=== PATIENT | male | born 1945 | race Caucasian/White ===

== ENCOUNTER 2016-10-02 12:13 | Inpatient (IN) | payer OTHER, MEDICARE ==
[2016-10-02 12:27] VITALS: BP 105/62
[2016-10-02 13:21] LABS: HEMATOCRIT 30.9 % (39.0-49.0); HEMOGLOBIN 10.5 gm/dL (12.6-17.4); MEAN CELL VOLUME 93.9 fl (80-99); MEAN CORPUSCULAR HEMOGLOBIN 31.9 pg (27.0-31.0); MEAN CORPUSCULAR HGB CONC 33.9 pg (28.0-36.0); MEAN PLATELET VOLUME 7.4 fl; PLATELET COUNT 253 Th/cmm (150-400); RED BLOOD COUNT 3.29 Mil/cmm (3.80-5.80); RED CELL DISTRIBUTION WIDTH 17.3 % (11.5-20.0)
--- NOTE | 2016-10-02 13:21 | Diagnostic Imaging Report ---
CHEST X-RAY: AP view INDICATION: COPD COMPARISON: None FINDINGS: Chronic lung changes are seen with mild prominence of the right suprahilar region and mild volume loss of the right lower lobe with small right effusion. Heart size is normal. Right apical pleural capping is noted. Atherosclerosis is noted. Degenerative changes of the spine are noted. Displaced right proximal humeral shaft is also noted. IMPRESSION: Chronic lung changes with mild volume loss of the right lung and mild prominence of right suprahilar region. Underlying mass lesion cannot be excluded. Recommend short-term follow-up with CT of the chest with IV contrast Small right effusion and right apical pleural capping. Pneumonia of the right apex cannot be excluded. Displaced right proximal humeral shaft fracture. Please correlate clinically. Consider additional dedicated views of the right humerus. Atherosclerotic vascular disease. Dr. Wagner was informed of the findings and recommendations on 09/12/2016 at 1:17 PM.
[2016-10-02 13:22] LABS: pH 7.47 (7.35-7.45)
[2016-10-02 13:24] LABS: INR 1.11 (0.5-1.4); PROTHROMBIN TIME (TEST) 11.6 SECONDS (9.5-11.5); WHITE BLOOD COUNT 19.3 Th/cmm (4.8-10.8)
[2016-10-02 13:24] LABS: BE(B) 6.8 mEq/L (-3.0-3.0); HCO3 31.3 mEq/L (20.0-26.0)
[2016-10-02 13:25] LABS: ABG SOURCE Arterial; ALLEN TEST POSITIVE; FIO2 28
[2016-10-02] MEDS ORDERED: Ipratropium Neb 0.5 mg/2.5 mL UD HHN ONE (13:26)
[2016-10-02] MEDS ORDERED: Albuterol Nebulizer 2.5mg/3mL HHN ONE (13:26)
[2016-10-02 13:28] LABS: CRITICAL VALUES REPORTED BY CS
--- NOTE | 2016-10-02 13:29 | ED Physician Chart ---
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 HE HAS CHEST CONGESTION, SOB, COUGH AND GREEN SPUTUM. HE ALSO HAS HAD FEVER FOR THE LAST FEW DAYS. HE HAS A LONG SMOKING HISTORY BUT STOPPED FOUR YEARS AGO. HE DENIES HEART DISEASE. Allergies:: Allergies Allergy/AdvReac Type Severity Reaction Status Date / Time cimetidine [From Tagamet] AdvReac Verified 10/02/16 12:22 Sulfa (Sulfonamide AdvReac Verified 10/02/16 12:22 Antibiotics) Vitals:: Vital Signs - 8 hr 10/02/16 10/02/16 12:27 12:28 Temp 98.7 F HR 90 RR 22 BP 105/62 105/62 O2 Sat % 92 Historian:: Patient, Medical Records Review:: Nurse's Note Reviewed Review of Systems - Review of Systems General/Constitutional: Fever, No chills, No weight loss, No weakness, No diaphoresis, No edema, No loss of appetite Skin: No skin lesions, No rash, No bruising Head: No headache, No light-headedness Eyes: No loss of vision, No pain, No diplopia ENT: No earache, No nasal drainage, No sore throat, No tinnitus Neck: No neck pain, No swelling, No thyromegaly, No stiffness, No mass noted Cardio Vascular: No chest pain, No palpitations, No PND, No orthopnea, No edema Pulmonary: SOB, Cough, Sputum, No wheezing GI: No nausea, No vomiting, No diarrhea, No pain, No melena, No hematochezia, No constipation, No hematemesis G/U: No dysuria, No frequency, No hematuria Musculoskeletal: No bone or joint pain, No back pain, No muscle pain Endocrine: No polyuria, No polydipsia Psychiatric: No prior psych history, No depression, No anxiety, No suicidal ideation Hematopoietic: No bruising, No lymphadenopathy Allergic/Immuno: No urticaria, No angioedema Neurological: No syncope, No focal symptoms, No weakness, No paresthesia, No headache, No seizure, No dizziness, No confusion, No vertigo Past Medical History - Past Medical History Obtainable: Yes Family History: None Social History: Non Smoker, No Alcohol, No Drug Use Surgical History: None Psychiatricy History: None Medication: Reviewed Family Medical History - Family Member Mother History Unknown: Yes Physical Exam - Physical Examination General/Constitutional: Awake, Well-developed, well-nourished, Alert, No distress, GCS 15, Non-toxic appearing, Ambulatory Head: Atraumatic Eyes: Lids, conjuctiva normal, PERRL, EOMI Skin: Nl inspection, No rash, No skin lesions, No ecchymosis, Well hydrated, No lymphadenopathy ENMT: External ears, nose nl, Nasal exam nl, Lips, teeth, gums nl Neck: Nontender, Full ROM w/o pain, No JVD, No nuchal rigidity, No bruit, No mass, No stridor Other Respiratory comments:: THERE IS BILATERAL DECREASE EXCURSION OF THE DIAPHRAMS AND RHONCHI ALSO HEARD. THE PATIENT COUGHED UP GREEN SPUTUM. Cardio Vascular: RRR, No murmur, gallop, rubs, NL S1 S2 GI: No tenderness/rebounding/guarding, No organomegaly, No hernia, Normal BS's, Nondistended, No mass/bruits, No McBurney tenderness : No CVA tenderness Extremities: No tenderness or effusion, Full ROM, No edema Other Extremities comments:: ALL FOUR EXTREMITIES HAVE SEVERE MUSCLE WASTING . Neuro/Psych: Alert/oriented, DTR's symmetric, Normal sensory exam, Normal motor strength, Judgement/insight normal, Mood normal, Normal gait, No focal deficits Misc: normal gait, Normal back, No paraspinal tenderness Labs/Radiology/EKG Results - Lab Results Results: Laboratory Tests 10/02/16 12:30 WBC 19.3 H RBC 3.29 L Hgb 10.5 L Hct 30.9 L MCV 93.9 MCH 31.9 H MCHC Differential 33.9 RDW 17.3 Plt Count 253 MPV 7.4 - Radiology Results Results: CHEST X-RAY = PLEURAL EFFUSION NOTED - EKG Interpretations EKG Time:: 13:04 Rhythm: NSR [place]: RIGHT Rate: 81 Assessment - Assessment General Assessment: PNEUMONIA ED Septic Shock - . Is Septic Shock (SBP<90, OR Lactate>4 mmol\L) present?: No - <6hrs of presentation: Vital Signs: Vital Signs - 8 hr 10/02/16 10/02/16 12:27 12:28 Temp 98.7 F HR 90 RR 22 BP 105/62 105/62 O2 Sat % 92 Reassessment (Disposition) - Reassessment Reassessment Condition:: Improved - Diagnosis Diagnosis:: BILATERAL PNEUMONIA - Aftercare/Follow up Instructions Aftercare/Follow-Up Instructions:: Counseled pt & family regarding lab results/ diagnosis & need follow up - Patient Disposition Discharge/Transfer:: Acute Care w/in this hosp Admitting Medical Physician:: Rommel Benson Condition at Disposition:: Improved ED Discharge Plan - Patient Disposition Admit/Discharge/Transfer: Acute Care w/in this hosp
[2016-10-02 13:32] LABS: ALB/GLOB RATIO 0.9 (1.0-1.8); ALKALINE PHOSPHATASE 45 U/L (34-104); ANION GAP 7.5 (7.0-16.0); BILIRUBIN,TOTAL 1.5 mg/dL (0.3-1.0); BUN - UREA NITROGEN 28 mg/dL (7-25); BUN/CREATININE RATIO 23.3; CALCIUM SERUM 8.6 mg/dL (8.6-10.3); CARBON DIOXIDE 28.5 mEq/L (21.0-31.0); CHLORIDE 101 mEq/L (98-107); CREATININE - SERUM 1.2 mg/dL (0.7-1.3); GLUCOSE 104 mg/dL (70-105); SGOT 11 U/L (13-39); SGPT/ALT 7 U/L (7-52); SODIUM SERUM 133 mEq/L (136-145)
[2016-10-02] MEDS ORDERED: Sodium Chloride 0.9% 1,000 ML IV ONE (13:35)
[2016-10-02 13:56] LABS: BAND NEUTROPHILE 1 % (0-10); EOSINOPHIL 1 % (0-5); NEUTROPHILS 87 % (40-80); PLATELET ESTIMATE ADEQUATE (NORMAL); PLATELET MORPHOLOGY NORMAL (NORMAL); TOTAL CELLS COUNTED 100
--- NOTE | 2016-10-02 14:58 | Diagnostic Imaging Report ---
CT Chest without IV contrast HISTORY: Mass COMPARISON: Chest x-ray earlier the same day. Technique: Axial images were obtained from the base of the neck to the upper abdomen without IV contrast. Reconstructions were made. Total DLP to 52, CTD I 7.3 Findings: Evaluation of mediastinum is limited due to lack of IV contrast. A few nonenlarged mediastinal lymph nodes are noted. Moderate atherosclerotic vascular disease is noted. No evidence of an aortic aneurysm. Heart size is normal. Trace pericardial fluid is noted. There are extensive emphysematous changes of the lungs with bullous changes. There is atypical 3.8 x 2.7 mass with area of cavitation and internal components along the right apex. Surrounding linear densities and areas of scarring are noted. Mild volume loss of the right lung is noted with right apical pleural cavity. Extensive right lower lobe consolidative changes are seen with air bronchograms. Additional left basal passive atelectasis and mild consolidative changes are noted. Trace bilateral effusions are noted. Additional atelectatic changes of the lungs are also seen with few scattered nodular opacities throughout the lungs greatest within the largest along the right lower lobe measuring 9 mm. The upper abdomen demonstrates a 1.5 cm right renal cyst. Extensive left renal atrophy is noted. A subcentimeter left renal low-density lesion is also noted to small to characterize but suggestive of a cyst. Advanced degenerative changes of the spine are noted. An age-indeterminate the displaced right proximal humeral shaft fracture is noted. IMPRESSION: Extensive emphysematous lung changes with area of cavitation/mass lesion of the right apex measuring 3.8 x 2.7 cm. This may represent a necrotic mass or possible necrotic tissue within a large right apex bulla. Findings may have been due to previous infectious process. Neoplastic process is considered less likely. Tuberculosis may be considered in the appropriate clinical setting. Additional extensive right lower lobe infiltrates/consolidative changes and additional mild left basal consolidative changes and passive atelectasis. Trace bilateral pleural effusions Areas of scarring seen throughout the lungs greatest in the right lung with areas of volume loss and right apical pleural capping.. Scattered nodules throughout the lungs the largest within the superior aspect of the right lower lobe measuring 9 mm. Findings may be due to infectious inflammatory or less likely neoplastic process. Short-term follow-up surveillance in 3-4 months is recommended Moderate atherosclerotic vascular disease. Left renal atrophy. Please refer to above for details.
--- NOTE | 2016-10-02 15:53 | Admit Criteria Form ---
Admit Criteria Forms - Admit Criteria Diagnosis: PNEUMONIA, COMMUNITY ACQUIRED Clinical Indications for Admission to Inpatient Care ( Place 'X' for any and all applicable criteria): Admission is indicated for ANY ONE of the following (1)(2)(3): [ ]I. Hypoxemia indicated by ANY ONE of the following: [ ]a) Oxygen saturation less than 90% while breathing room air [ ]b) PO2 less than 60 mm Hg (8.0 kPa) while breathing room air [ ]c) Chronic lung disease with significant deterioration from baseline oxygenation [ ]II. Appropriate diagnostic testing and treatment unavailable in outpatient or recovery facility (eg,testing or infection control measures unavailable(10) [X]III. Moderate-risk or high-risk category patients (Pneumonia Severity Index (PSI) class IV or V, or CURB-65 score of 3 or greater). [ ]IV. Outpatient treatment failure as indicated by ANY ONE of the following(9) : [ ]a) Failure to respond to antibiotic (eg, resistant organism) [ ]b) Clinically significant adverse effects from medication (eg, vomiting) [ ]c) Complications of pneumonia (eg, empyema, bacteremia) [ ]d) Significant worsening of comorbid cond necessitating inpatient care (eg, chronic heart failure) [ ]V. Intermediate-risk category patients (eg, PSI class III or CURB-65 score 2) who do not improve with initial therapy and observation. [ ]. Immunocompromised patients (eg, AIDS, chronic steroid use) at moderate or high risk based on clinical evaluation. [ ]VII. Complicated pleural effusions (eg, exudative, loculated) [ ]VIII.Hemodynamic instability [ ] IX. Altered mental status that is severe or persistent. [ ]X. Dehydration that is severe or persistent. [ ]XI. Bacteremia [ ]XII. Respiratory finding (eg. tachypnea) that do not respond to outpatient or observation care treatment Extended stay beyond goal length of stay may be needed for (20) [ ]a) Unclear diagnosis [ ]b) Pleural disease [ ]c) Severe pneumonia or treatment failure (25 [ ]d) Respiratory failure (anticipate invasive or noninvasive ventilatory support) [ ]e) Abnormal serum electrolytes (serum Na concentration less than 135 mEq/L (mmol/L) (32)(33) [ ]f) Clinically significant comorbid illness (eg, heart failure, atrial fibrillation with rapid heart rate, alcohol withdrawal, renal insufficiency)(34)(35) [ ]g) Comorbid acute exacerbation of COPD(36) [ ]h) Concomitant diagnosis of malignancy that may be associated with malnutrition, immunologic impairment, or bronchial obstruction. [ ]i) Concomitant altered mental status [ ]j) Culture-identified Gram-negative or antibiotic-resistant organism (eg, Pseudomonas, methicillin-resistant Staphylococcus aureus)(30) [ ]k) Healthcare-associated pneumonia The original [facility] content created by [employer] has been revised. The portions of the content which have been revised are identified through the use of italic text or in bold, and [facility] has neither reviewed nor approved the modified material. All other unmodified content is copyright [facility] [employer]. Please see references footnoted in the original [facility] [employer] edition 2016 Admit Criteria Met?: Yes
[2016-10-02] MEDS ORDERED: VTE Chemical Prophylaxis Screen/Admission MC PRN (16:52)
[2016-10-02] MEDS: Albuterol Nebulizer 2.5mg/3mL HHN ONE (17:17)
[2016-10-02] MEDS: Ipratropium Neb 0.5 mg/2.5 mL UD HHN ONE (17:18)
[2016-10-02] MEDS: Hydrocodone/APAP 10 mg/325 mg Tab PO PRN ×2 (17:52→23:48)
[2016-10-02] MEDS: Albuterol Sulfate ER 4 mg Tab PO SCH (18:00)
[2016-10-02] MEDS ORDERED: Budesonide 0.5 Mg/2 mL Ud HHN SCH (19:00)
[2016-10-03] MEDS: Hydrocodone/APAP 10 mg/325 mg Tab PO PRN ×4 (04:08→17:50)
[2016-10-03 04:37] LABS: URINE BACTERIA 1+ /hpf (NONE SEEN); URINE BILIRUBIN NEGATIVE (NEGATIVE); URINE BLOOD NEGATIVE (NEGATIVE); URINE COLOR AMBER; URINE EPITHELIAL CELLS OCCASIONAL /lpf (FEW); URINE GLUCOSE (UA) NEGATIVE (NEGATIVE); URINE KETONE NEGATIVE (NEGATIVE); URINE PH 5.5; URINE PROTEIN 100 mg/dL (NEGATIVE); URINE RBC 0-1 /hpf (0-5); URINE UROBILINOGEN 0.2 E.U./dL (0.2 - 1.0); URINE WBC 0-2 /hpf (0-5)
[2016-10-03 04:38] LABS: URINE AMORPHOUS SEDIMENT MODERATE URATES (NONE SEEN)
[2016-10-03] MEDS: Pantoprazole 40 mg EC Tab PO SCH (06:42)
[2016-10-03 06:57] LABS: % BASOPHILS 0.4 % (0.0-2.0); % EOSINOPHILS 0.2 % (0.0-5.0); % LYMPHOCYTES 11.6 % (20.0-50.0); % MONOCYTES 2.6 % (2.0-10.0); % NEUTROPHILS 85.2 % (40.0-80.0); HEMATOCRIT 30.7 % (39.0-49.0); HEMOGLOBIN 10.4 gm/dL (12.6-17.4); MEAN CELL VOLUME 94.8 fl (80-99); MEAN CORPUSCULAR HGB CONC 33.7 pg (28.0-36.0); MEAN PLATELET VOLUME 7.1 fl; NEUTROPHILE ABSOLUTE 7.6 Th/cmm (1.8-8.0); PLATELET COUNT 236 Th/cmm (150-400); RED BLOOD COUNT 3.24 Mil/cmm (3.80-5.80); RED CELL DISTRIBUTION WIDTH 17.4 % (11.5-20.0)
[2016-10-03] MEDS: Albuterol Nebulizer 2.5mg/3mL HHN PRN ×2 (06:59→14:35)
[2016-10-03] MEDS ORDERED: Levofloxacin 500mg/100mL 500 MG/100 ML BAG IV SCH (07:00)
[2016-10-03] MEDS: Ipratropium Neb 0.5 mg/2.5 mL UD HHN PRN ×2 (07:00→14:35)
[2016-10-03 07:14] LABS: WHITE BLOOD COUNT 8.8 Th/cmm (4.8-10.8)
[2016-10-03 07:20] LABS: ALB/GLOB RATIO 0.8 (1.0-1.8); ALKALINE PHOSPHATASE 43 U/L (34-104); ANION GAP 7.6 (7.0-16.0); BILIRUBIN,TOTAL 0.5 mg/dL (0.3-1.0); BUN - UREA NITROGEN 36 mg/dL (7-25); BUN/CREATININE RATIO 25.7; CARBON DIOXIDE 29.4 mEq/L (21.0-31.0); CHLORIDE 107 mEq/L (98-107); CHOLESTEROL 105 mg/dL (<200); CREATININE - SERUM 1.4 mg/dL (0.7-1.3); GLUCOSE 160 mg/dL (70-105); SGOT 8 U/L (13-39); SGPT/ALT 8 U/L (7-52); SODIUM SERUM 140 mEq/L (136-145); TRIGLYCERIDES 107 mg/dL (<150)
[2016-10-03] MEDS: Albuterol Sulfate ER 4 mg Tab PO SCH (08:55)
[2016-10-03] MEDS: Aspirin 81mg Chewable Tab PO SCH (08:57)
--- NOTE | 2016-10-03 09:45 | History & Physical ---
CHIEF COMPLAINT: Shortness of breath. HISTORY OF PRESENT ILLNESS: This is a 71-year-old male who presents to [facility] ER for shortness of breath and difficulty breathing noted at the long term facility. A few days prior to admission, the patient presented with cough, congestion, shortness of breath with green productive sputum along with fever. The patient has a previous history of CHF, COPD, coronary artery disease, has a history of VA, muscle weakness, peripheral vascular disease. He has also history of elevated WBC, unspecified, hypertension, hyperlipidemia. The patient had initial lab work done in the ER with a CBC. White count was elevated at 19,000, hemoglobin was 10.5, hematocrit 30.9, platelets 253. His initial Chem-7, sodium was 133, potassium 4.0, chloride 101, bicarbonate 20, BUN 28, creatinine 1.2. UA showed 100 protein, +1 bacteria. Initial chest x-ray revealed pleural effusion at the right lung base. The patient was started on IV antibiotics, given a dose of prednisone and was subsequently admitted for further evaluation and treatment. PAST MEDICAL HISTORY: See HPI. PAST SURGICAL HISTORY: He has a history of partial lung resection and hernia repair. SOCIAL HISTORY: The patient is a resident at [facility]. Denies alcohol use, but states he quit smoking 4 years ago. FAMILY HISTORY: Colon cancer. ALLERGIES: SULFA AND TAGAMET. REVIEW OF SYSTEMS: Essentially normal except the above complaints. PHYSICAL EXAMINATION: VITAL SIGNS: Temperature 97.6, pulse 77, respiration 18, blood pressure is 104/60. GENERAL: This is a 71-year-old male, well developed, well nourished, appears his stated age, awake, alert and oriented x 3. HEENT: Normocephalic, atraumatic. Pupils equal, round, react to light and accommodation. Extraocular muscles intact. Ears: TMs intact. NECK: Supple. Good range of motion. No thyromegaly, no lymphadenopathy. CARDIOVASCULAR: Heart regular rate and rhythm. LUNGS: Decreased breath sounds noted at the bases. ABDOMEN: Soft, nontender, nondistended. Bowel sounds are active in all 4 quadrants. No rebound tenderness, no rigidity, no guarding. EXTREMITIES: No clubbing, cyanosis or edema. Pedal pulses are intact. ASSESSMENT: 1. Shortness of breath, rule out pneumonia, rule out congestive heart failure. 2. History of congestive heart failure. 3. Coronary artery disease. 4. Chronic obstructive pulmonary disease. 5. History of myocardial infarction. 6. Elevated troponin levels. 7. Elevated WBCs. 8. Hypertension. 9. History of partial lung resection. 10. Lung mass noted on CT. PLAN: We will order Pulmonary consult with Dr. Trent Bustillos. We will also order Cardiology consult, Dr. Luis Bustillos. We will repeat a CBC and Chem-7 for this morning with liver panel, TSH and then we will repeat troponin level, ice q. 8 hours. The patient on telemetry. We will start Levaquin 500 mg every day. We will repeat a chest x-ray for tomorrow. We will continue home medications. [facility]# [id number]
--- NOTE | 2016-10-03 09:57 | Diagnostic Imaging Report ---
History: Dyspnea Comparison: 10/02/2016 Findings: Scarring in the right upper lung zone. Left lung is clear. Heart size is enlarged. Impression: No significant change in appearance of the chest compared to previous exam.
[2016-10-03 10:47] LABS: TROP I 0.34 ng/mL (0.01-0.05)
[2016-10-03] MEDS: methylPREDNISolone SS 40 mg Vial IV SCH ×2 (15:47→20:17)
[2016-10-03] MEDS: Azithromycin 500 MG in Sodium Chloride 0.9% 250 ML IV SCH (15:49)
[2016-10-03] MEDS: Pantoprazole 40 mg/Packet PO SCH (16:26)
[2016-10-03] MEDS: Albuterol/Ipratropium Neb 3 ML AERS HHN SCH (19:32)
[2016-10-04] MEDS: methylPREDNISolone SS 40 mg Vial IV SCH ×6 (00:06→20:00)
--- NOTE | 2016-10-04 00:22 | Progress Notes ---
PULMONARY PROGRESS NOTE REASON FOR CONSULTATION: Shortness of breath. CONSULT NOTE: This is a 71-year-old gentleman who lives in a local convalescent hospital. BASIC PROBLEM: 1. COPD. 2. History of congestive heart failure; history of previous coronary artery disease; history of previous tobacco dependence, has not smoked for last 3-4 years; associated with hypertension; and dyslipoproteinemia. SYMPTOMS: The patient basically since Wednesday had a high-grade fever. Subsequently, started having more coughing, more wheezing, with chest tightness. Subsequently, the patient was brought to the hospital for further care and necessary treatment. The patient basically says that he has been coughing, more wheezing today, chest tightness, no much sputum production, very minimal and has felt extremely tired and fatigued and had had fever, but exact quantification is not clearcut prior to coming to the hospital. Denies of any hemoptysis, any swelling of the legs, etc., but appears to be quite worse over last 2-3 days. MEDICAL HISTORY: 1. History of COPD. 2. Resection of the right lung a couple of years back because of "hemorrhage." 3. History of hernia. 4. Smoking history more than 60-pack years' smoking, has not smoked in last 4-5 years. The patient lives in a convalescent home and able to get out of bed, etc., without much of a problem. ALLERGIC HISTORY: Possibly to sulfa and Tagamet, but otherwise unremarkable. PHYSICAL EXAMINATION: GENERAL: This is an elderly looking gentleman, mildly tachypneic with audibly wheezing with a lot of secretory noise hearing from outside. VITAL SIGNS: The patient's recorded vitals: Temperature is 97, respirations is about 20-22, blood pressure 142/87, and saturation 92 on 3 liters per minute. HEENT: Examination of the head is essentially unremarkable. Pupils appear to be equal and reacting to light. Conjunctivae slightly pallor. Oral cavity shows small oropharyngeal opening with poor dental hygiene with situation. NECK: No nodes in the neck could be palpated. Good bilateral carotid upstroke. CHEST: Shows a lot of wheezing with marked diminished air entry bilaterally. HEART: Regular, slightly tachycardic. ABDOMEN: Quite distended. EXTREMITIES: Shows no cyanosis or clubbing. LABORATORY DATA: The patient's white count yesterday was 19.3, today is 8.8, neutrophils 8. The patient's arterial blood gases show pO2 was 39 initially in the Emergency Room. The patient's electrolytes are okay with BUN of 36 and creatinine 1.4, and troponin is borderline on the higher side with BNP of 2000. The patient's urine is essentially unremarkable with slight bacteria. Chest x-ray shows slightly lung volume on the right side, on the left side some interstitial changes, but not typical of heart failure. ASSESSMENT: 1. The patient has acute exacerbation of chronic obstructive pulmonary disease. 2. Bilateral interstitial pneumonitis, possibly atypical. 3. Underlying history suggestive of obstructive sleep apnea syndrome. 4. Elevated BNP and troponin could be secondary to evaluation of pulmonary hypertension. PLANS AND SUGGESTIONS: We will give aggressive respiratory care, high dose of IV steroid, inhale steroid, bronchodilator, and also use of BiPAP and also get the cultures, etc., and see how he does in next 24-48 hours and go from there. Also, we will get a CT of the chest as well and go from there. JOB# [id number]
[2016-10-04] MEDS: Hydrocodone/APAP 10 mg/325 mg Tab PO PRN ×4 (02:35→18:32)
[2016-10-04 02:39] LABS: INR 0.98 (0.5-1.4); PROTHROMBIN TIME (TEST) 10.2 SECONDS (9.5-11.5)
[2016-10-04] MEDS: Heparin 25,000 Units In D5W 25,000 UNITS/250 ML BAG IV PRN ×2 (03:00→23:01)
--- NOTE | 2016-10-04 05:50 | Consultation ---
HISTORY OF PRESENT ILLNESS: The patient is in ICU. This patient was seen and examined at the courtesy of Dr. Benson. This patient was transferred to the hospital from the care home with shortness of breath, respiratory distress, cough. His chest x-ray has shown COPD changes and a consolidation. CAT scan of the chest was done, which had shown an area of cavitation and mass lesion of the right apex measuring 3.8 x 2.7 cm. This could be necrotic mass, possible necrotic tissue with a large right apex ____, could be due to infectious process or neoplastic process. Also, has multiple nodules in the lung. Another consolidation was seen in the mid left basal area. Trace bilateral pleural effusions. The patient's troponin level also found to be elevated and kept on progressively getting worse. The highest troponin level was 18.4. The patient does have a history of coronary artery disease, history of myocardial infarction, history of congestive heart failure, peripheral vascular disease. He also has had partial lung resection, hernia repair in the past, also a history of hyperlipidemia, and hypertension. PAST MEDICAL HISTORY: The usual childhood diseases. No history of rheumatic fever, no scarlet fever. Other past history as mentioned above including history of coronary artery disease, history of myocardial infarction, history of congestive heart failure, hypertension, hyperlipidemia. PAST SURGICAL HISTORY: Partial lung resection, hernia repair. FAMILY HISTORY: Family history of colon cancer. SOCIAL HISTORY: The patient is a resident in a [facility] facility. He quit smoking 4 years ago, does not drink alcohol. ALLERGIES: SULFA AND TAGAMET. REVIEW OF SYSTEMS: There is no history of chest pains. History of shortness of breath and cough. No dizziness. No syncope, no seizures, no hemoptysis. No history of abdominal pain, nausea, vomiting, no hematemesis was seen. No history of melena, no history of bleeding per rectum, no history of change in bowel habits. No history of swelling of the legs, no history of intermittent claudications or phlebitis. PHYSICAL EXAMINATION: VITAL SIGNS: Heart rate was 100, blood pressure was 130/70. SKIN: Normal. HEENT: Normocephalic. Conjunctivae was pink. There is no icterus. Eyes: Pupils reacting to light. There was no increased jugular venous distention, no thyromegaly, no lymphadenopathy. Carotids equal both sides. CHEST: Bilaterally symmetrical moves well with respiration. Respiratory movements are equal on both sides. NECK: Trachea central. There is note to percussion. Breath sound normal. LUNGS: Bilateral wheezing and rhonchi and some rales. CARDIOVASCULAR: PMI not localized and no positional thrill. No parasternal heave. S1 normal, S2 physiologic. No definite history. No rub. ABDOMEN: Soft, no tenderness, no rigidity, no guarding, no organomegaly. Bowel sounds normal. CENTRAL NERVOUS SYSTEM: ____ function normal limits. Orientation is good. Motor system looks normal. EXTREMITIES: No edema, no calf tenderness. Peripheral pulses are diminished. EKG shows sinus rhythm, T-wave changes in the precordial leads. LABORATORY DATA: Includes lactic acid was 0.79, TSH 1.46, hemoglobin 10.4, hematocrit 30.7. Sodium is 140, potassium 4.0, chloride 107, CO2 of 29, BUN 36, creatinine 1.4, glucose was 160. LDL cholesterol was 61. BNP was 2440. ASSESSMENT: Shortness of breath, respiratory distress, wheezing, bronchospasm, cavitation, mass lesion in the right apex, pneumonia, leukocytosis, status post partial lung resection, status post hernia repair, trace bilateral pleural effusions, multiple nodules in the lung and elevated troponin level, acute non-Q-wave myocardial infarction, coronary artery disease, old myocardial infarction, congestive heart failure, chronic obstructive pulmonary disease, peripheral vascular disease, hypertension, hyperlipidemia. PLAN: To continue ICU monitoring. We will get serial EKG, serial enzymes and also get lipid profile in a.m. Echocardiogram, Protime, PTT, restart on anticoagulation with IV heparin and add Lipitor. The patient is already on a beta-marjorie. The patient is already on aspirin and Protonix. Thank you. We will follow with you as needed. JOB# [id number]
[2016-10-04 05:52] LABS: HEMOGLOBIN 11.2 gm/dL (12.6-17.4); MEAN CELL VOLUME 95.4 fl (80-99); MEAN CORPUSCULAR HEMOGLOBIN 31.3 pg (27.0-31.0); MEAN CORPUSCULAR HGB CONC 32.8 pg (28.0-36.0); MEAN PLATELET VOLUME 7.5 fl; RED BLOOD COUNT 3.57 Mil/cmm (3.80-5.80); RED CELL DISTRIBUTION WIDTH 17.6 % (11.5-20.0)
[2016-10-04 05:56] LABS: PLATELET COUNT 288 Th/cmm (150-400)
[2016-10-04 06:12] LABS: ALB/GLOB RATIO 0.8 (1.0-1.8); ALKALINE PHOSPHATASE 45 U/L (34-104); ANION GAP 13.5 (7.0-16.0); BILIRUBIN,TOTAL 0.4 mg/dL (0.3-1.0); BUN - UREA NITROGEN 46 mg/dL (7-25); BUN/CREATININE RATIO 27.1; CALCIUM SERUM 9.4 mg/dL (8.6-10.3); CARBON DIOXIDE 27.3 mEq/L (21.0-31.0); CHLORIDE 103 mEq/L (98-107); CREATININE - SERUM 1.7 mg/dL (0.7-1.3); GLUCOSE 130 mg/dL (70-105); POTASSIUM SERUM 4.8 mEq/L (3.5-5.1); SGOT 105 U/L (13-39); SGPT/ALT 38 U/L (7-52); SODIUM SERUM 139 mEq/L (136-145)
[2016-10-04 06:13] LABS: CHOLESTEROL 132 mg/dL (<200); TRIGLYCERIDES 122 mg/dL (<150)
[2016-10-04] MEDS: Albuterol/Ipratropium Neb 3 ML AERS HHN SCH ×4 (07:00→18:36)
[2016-10-04] MEDS: Budesonide 0.5 Mg/2 mL Ud HHN SCH ×2 (07:01→18:36)
[2016-10-04] MEDS: Pantoprazole 40 mg EC Tab PO SCH (08:27)
[2016-10-04] MEDS: Aspirin 81mg Chewable Tab PO SCH (08:28)
[2016-10-04] MEDS: Atorvastatin Calcium 10 MG TAB PO SCH (08:28)
[2016-10-04] MEDS: Pantoprazole 40 mg/Packet PO SCH (08:31)
[2016-10-04] MEDS: Albuterol Sulfate ER 4 mg Tab PO SCH ×2 (08:37→16:38)
[2016-10-04 09:20] LABS: ABG SOURCE Arterial; ALLEN TEST Positive; BE(B) -0.4 mEq/L (-3.0-3.0); HCO3 27.6 mEq/L (20.0-26.0); MECH RATE 12
[2016-10-04 09:21] LABS: CRITICAL VALUES REPORTED BY ACELIS; FIO2 45; MECH VT 350
[2016-10-04 09:23] LABS: pH 7.27 (7.35-7.45)
[2016-10-04 09:24] LABS: BAND NEUTROPHILE 6 % (0-10); NEUTROPHILS 87 % (40-80); PLATELET ESTIMATE ADEQUATE (NORMAL); PLATELET MORPHOLOGY NORMAL (NORMAL); TOTAL CELLS COUNTED 100
--- NOTE | 2016-10-04 09:27 | Diagnostic Imaging Report ---
History: Dyspnea Comparison:[10/03/2016] Findings:[Heart size is enlarged. Right apical pleural and parenchymal scarring. Prominent bilateral bronchovascular markings. Right subpulmonic pleural effusion Impression:[Compared to previous exam] signs of slightly increasing congestive changes
[2016-10-04] MEDS: Sodium Chloride 0.9% 1,000 ML IV SCH (16:45)
[2016-10-04] MEDS: Azithromycin 500 MG in Sodium Chloride 0.9% 250 ML IV SCH (18:07)
--- NOTE | 2016-10-04 21:57 | Progress Notes ---
PULMONARY PROGRESS NOTE PROBLEM LIST: 1. Acute respiratory failure. 2. Chronic obstructive pulmonary disease. 3. Resected right lung, exact reason not clear. 4. Suspect pulmonary hypertension with more right lower lobe infiltrate with some patchy interstitial changes in the left lung area as well. SYMPTOMS: The patient feels okay, but cannot tolerate taking off the BiPAP, still coughing, not too much sputum production, occasionally slightly discolored brownish-colored sputum. No chest pain, etc. Unfortunately, the patient had to be moved to the ICU last night. PHYSICAL EXAMINATION: VITAL SIGNS: The patient's temperature is 96, respirations in low 20s, saturation is 94 on about 30% of BiPAP. NECK: Veins not visualized. CHEST: Shows dorsal kyphosis with generalized diminished air entry with the coarse rhonchi. HEART: Regular, slightly tachycardic. ABDOMEN: Soft and nontender. Slightly protuberant. LABORATORY DATA: White count is 20,000, and the blood gases show partially compensated respiratory acidemia. BUN is 46, creatinine is 1.7, and BNP is 4000, and troponin did go up to 18, which he may have really non-Q wave DC. IMPRESSION: The patient has acute respiratory failure. Bilateral infiltrate looks more of a bacterial than congestive heart failure, associated with chronic obstructive pulmonary disease with respiratory failure, suspect underlying pulmonary hypertension. PLANS AND SUGGESTIONS: We will go ahead and continue current treatment. Care and plan discussed with Dr. Pulido, and the patient ____. We will go ahead and repeat chest x-ray as well as blood gases back again tomorrow and leave the patient on the BiPAP for now and go from there. JOB# [id number]
--- NOTE | 2016-10-04 23:28 | Consultation ---
ATTENDING PHYSICIAN: Paulino Benson D.O. SU[employer]EDGE DUMPING SUPERVISOR: Dr. Jean Pierre Lynch. REASON FOR CONSULTATION: Worsening kidney function, electrolyte imbalance and fluid management. HISTORY OF PRESENT ILLNESS: This is a 71-year-old male with past medical history of COPD who came in because of respiratory distress. Few hours prior to admission, the patient developed cough with greenish phlegm. This was associated with congestion and essentially shortness of breath. A few hours prior to admission, his respiratory status worsened. He was then brought to the Emergency Room. Chest x-ray revealed chronic lung changes, small right effusion with possible right apex pneumonia. CT scan of the chest revealed chronic changes with cavity/mass lesion at the right apex, right lower lobe infiltrate/consolidative changes and trace bilateral effusions. He was started immediately on azithromycin as well as Rocephin. Initial white count on admission was 19.3. He was admitted with BUN/creatinine of 28/1.2. However, his BUN/creatinine today were 46/1.7. He had no nausea and vomiting as well as diarrhea. PAST MEDICAL HISTORY: 1. COPD. 2. History of CHF. 3. Coronary artery disease, status post TN. 4. Right lower leg cellulitis. 5. Peripheral arterial disease. 6. Dyslipidemia. 7. Essential hypertension. 8. Severe malnutrition. PAST SURGICAL HISTORY: 1. Status post herniorrhaphy. 2. Status post partial lung restriction. CURRENT MEDICATIONS: He is currently on acetaminophen, albuterol, atorvastatin, azithromycin, Pulmicort, carvedilol, furosemide which was discontinued, ipratropium, lisinopril, lorazepam, mirtazapine, piperazine, pantoprazole, senna, ceftriaxone and methylprednisolone. ALLERGIES: Allergic to cimetidine as well as sulfa. SOCIAL HISTORY: He did have a history of smoking, but quit about 4 years ago. No history of alcohol abuse. FAMILY HISTORY: Significant for colon cancer. REVIEW OF SYSTEMS: GENERAL: I was not able to pursue further from the patient because he was on BiPAP. However, based on transfer notes, appetite had been poor. No fever, no chills. He has generalized weakness. HEENT: No mention of headaches and no dizziness. CARDIORESPIRATORY: He came in because of shortness of breath associated with cough and congestion. He had no chest pain or palpitations. No diaphoresis. However, his troponin progressively had been increasing. This is suggestive of an underlying acute TN. MUSCULOSKELETAL: He has several arthralgias. GENITOURINARY: No history of kidney failure in the past. However, he comes in now with renal insufficiency. Denied any dysuria, no hematuria. HEMATOLOGIC: He has mild anemia. ENDOCRINE: No history of diabetes or thyroid abnormalities, but has dyslipidemia. NEUROPSYCH: No syncopal episode nor seizure activity. PHYSICAL EXAMINATION: GENERAL: The patient is awake, on BiPAP, mild to moderate respiratory distress, cachectic. VITAL SIGNS: Blood pressure is 136/96, pulse 98 and temperature 97 degrees. SKIN: Poor turgor, warm. No rash and no jaundice appreciated. HEENT: Head: Normocephalic and atraumatic. Eyes: Extraocular muscles are intact. Pupils equal, round and reactive to light and accommodates, anicteric sclerae, pink conjunctivae. Nose: Midline nasal septum. Mouth: Dry mucosa with poor dentition. NECK: Supple. No adenopathy, no thyromegaly and no bruits. Trachea palpated in the midline. CHEST AND CVS: S1, S2. No rub, murmur nor gallop appreciated. Point of maximal impulse is in the fifth intercostal space, left midclavicular line. No abdominal or femoral bruits appreciated. LUNGS: Equal expansion. No use of accessory muscles. No supraclavicular retractions. Decreased breath sounds. He has extensive expiratory wheezes, coarse rhonchi, but no rales appreciated. ABDOMEN: Globular, very soft, minimal bowel sounds, no tenderness on palpation. No bruits either diastolic or systolic. RECTAL: Deferred because he has been ruled out for TN. MUSCULOSKELETAL: No effusions present in his joints, but limited range of motion. EXTREMITIES: No evidence of edema, cyanosis nor clubbing with some hyperpigmentation distal to both knees. NEUROLOGIC: The patient is awake, nods head, but unable to follow my neuro commands, so I will just monitor his status closely. LABORATORY DATA: Sodium 139, potassium 4.8, chloride 103, bicarbonate 27, BUN 46, creatinine 1.7 and glucose 130. White count was 20, hemoglobin 11.2, hematocrit 34, polys 85.2% and platelets 288. Calcium 9.8, magnesium 2.3. Troponin 18.4, BNP of 2039. Urinalysis: Specific gravity of 1.925. IMPRESSION: 1. Acute kidney injury, MDRD GFR of 42 mL per minute. The patient initially developed prerenal azotemia. He had a very poor appetite in the last few days. He has had some cough and congestion and was not able to replenish his sensible and insensible fluid losses. Exam revealed dry oral mucosa with poor skin turgor. He had a very concentrated urine. He also admitted to being thirsty. These are suggestive of dehydration, which could lead to a decrease ineffective circulating volume. His prerenal azotemia progressed to acute tubular injury. 2. Exacerbation of chronic obstructive pulmonary disease, possibly due to underlying healthcare-acquired pneumonia. 3. Right-sided healthcare-acquired pneumonia. 4. [place]/mass lesion on the right apex. 5. History of coronary artery disease with acute [id number] elevation myocardial infarction. 6. Elevated BNP could be congestive heart failure. However, this could be due to congestive heart failure and also from structural heart disease. However, chronic changes in his chest x-ray are suggestive of some underlying possibility of pulmonary hypertension. 7. Right lower lobe cellulitis. 8. Peripheral arterial disease. 9. Dyslipidemia. 10. Severe malnutrition. PLAN: 1. Urinalysis. 2. Urine sodium, eosinophils and creatinine. 3. Renal ultrasound. 4. Follow up echocardiogram. 5. A 24-hour urine collection. 6. Follow up electrolytes and CBC. Thank you, Dr. Benson for this consult. I will follow the patient closely with you. JOB# [id number]
[2016-10-05] MEDS: Hydrocodone/APAP 10 mg/325 mg Tab PO PRN ×4 (00:07→15:56)
[2016-10-05] MEDS: methylPREDNISolone SS 40 mg Vial IV SCH ×6 (00:39→20:00)
[2016-10-05 04:58] LABS: HEMATOCRIT 31.9 % (39.0-49.0); HEMOGLOBIN 10.7 gm/dL (12.6-17.4); MEAN CELL VOLUME 94.4 fl (80-99); MEAN CORPUSCULAR HEMOGLOBIN 31.7 pg (27.0-31.0); MEAN CORPUSCULAR HGB CONC 33.6 pg (28.0-36.0); MEAN PLATELET VOLUME 7.5 fl; RED BLOOD COUNT 3.38 Mil/cmm (3.80-5.80); RED CELL DISTRIBUTION WIDTH 17.1 % (11.5-20.0)
[2016-10-05 05:03] LABS: PLATELET COUNT 217 Th/cmm (150-400); WHITE BLOOD COUNT 13.8 Th/cmm (4.8-10.8)
[2016-10-05 05:07] LABS: ALB/GLOB RATIO 0.8 (1.0-1.8); ALKALINE PHOSPHATASE 38 U/L (34-104); BILIRUBIN,TOTAL 0.4 mg/dL (0.3-1.0); BUN - UREA NITROGEN 53 mg/dL (7-25); BUN/CREATININE RATIO 31.2; CALCIUM SERUM 9.1 mg/dL (8.6-10.3); CARBON DIOXIDE 31.7 mEq/L (21.0-31.0); CHLORIDE 102 mEq/L (98-107); CREATININE - SERUM 1.7 mg/dL (0.7-1.3); GLUCOSE 139 mg/dL (70-105); MAGNESIUM 2.4 mg/dL (1.9-2.7); PHOSPHOROUS 4.7 mg/dL (2.5-5.0); POTASSIUM SERUM 4.7 mEq/L (3.5-5.1); SGOT 87 U/L (13-39); SGPT/ALT 37 U/L (7-52); SODIUM SERUM 137 mEq/L (136-145); URIC ACID 8.5 mg/dL (4.4-7.6)
[2016-10-05 05:56] LABS: BAND NEUTROPHILE 1 % (0-10); NEUTROPHILS 91 % (40-80); PLATELET ESTIMATE ADEQUATE (NORMAL); TOTAL CELLS COUNTED 100
[2016-10-05] MEDS: Budesonide 0.5 Mg/2 mL Ud HHN SCH ×2 (07:04→18:54)
[2016-10-05] MEDS: Albuterol/Ipratropium Neb 3 ML AERS HHN SCH ×4 (07:04→18:54)
--- NOTE | 2016-10-05 08:08 | Diagnostic Imaging Report ---
Portable chest x-ray HISTORY: Shortness of breath, pneumonia Compared to the prior exam of October 04, 2016, the heart remains enlarged. No change in findings that correspond to extensive chronic changes seen on the earlier CT scan of October 02, 2016. Pleural thickening noted in the right apical region. Cavitating lesion within the right apical region is not clearly visualized on this plain radiograph. Persistent density is noted in the right lower hemithorax consistent with pleural and parenchymal changes noted on the earlier CT scan. IMPRESSION: 1. No change in the cardiopulmonary status as noted above.
[2016-10-05] MEDS: Aspirin 81mg Chewable Tab PO SCH (08:12)
[2016-10-05] MEDS: Atorvastatin Calcium 10 MG TAB PO SCH (08:12)
[2016-10-05] MEDS ORDERED: Probiotic Screen MC PRN (08:42)
[2016-10-05 09:37] LABS: HCO3 28.2 mEq/L (20.0-26.0); pH 7.35 (7.35-7.45)
[2016-10-05 09:38] LABS: ABG SOURCE Arterial; ALLEN TEST PASS; BE(B) 1.8 mEq/L (-3.0-3.0); CRITICAL VALUES REPORTED BY PW; FIO2 50
[2016-10-05] MEDS: Pantoprazole 40 mg EC Tab PO SCH (11:36)
[2016-10-05] MEDS: Lactobacillus Rhamnosus 10 Billion CFU Capsule PO SCH (11:37)
[2016-10-05] MEDS: Albuterol Sulfate ER 4 mg Tab PO SCH (14:16)
--- NOTE | 2016-10-05 14:28 | General Progress Note ---
Subjective - Review of Systems Service Date: 10/05/16 Subjective: more alert today, verbal, coherent, on VM Objective - Results Result Diagrams: 10/05/16 04:32 10/05/16 04:32 Recent Labs: Laboratory Last Values WBC 13.8 Th/cmm (4.8-10.8) H D 10/05/16 04:32 RBC 3.38 Mil/cmm (3.80-5.80) L 10/05/16 04:32 Hgb 10.7 gm/dL (12.6-17.4) L 10/05/16 04:32 Hct 31.9 % (39.0-49.0) L 10/05/16 04:32 MCV 94.4 fl (80-99) 10/05/16 04:32 MCH 31.7 pg (27.0-31.0) H 10/05/16 04:32 MCHC Differential 33.6 pg (28.0-36.0) 10/05/16 04:32 RDW 17.1 % (11.5-20.0) 10/05/16 04:32 Plt Count 217 Th/cmm (150-400) D 10/05/16 04:32 MPV 7.5 fl 10/05/16 04:32 Neutrophils % 85.2 % (40.0-80.0) H 10/03/16 06:36 Band Neutrophils % 1 % (0-10) 10/05/16 04:32 Lymphocytes % 11.6 % (20.0-50.0) L 10/03/16 06:36 Monocytes % 2.6 % (2.0-10.0) 10/03/16 06:36 Eosinophils % 0.2 % (0.0-5.0) 10/03/16 06:36 Basophils % 0.4 % (0.0-2.0) 10/03/16 06:36 Neutrophils (Manual) 91 % (40-80) H 10/05/16 04:32 Lymphocytes 7 % (20-50) L 10/05/16 04:32 Monocytes 1 % (2-10) L 10/05/16 04:32 Eosinophils 1 % (0-5) 10/02/16 12:30 Platelet Estimate ADEQUATE (NORMAL) 10/05/16 04:32 Platelet Morphology NORMAL (NORMAL) 10/04/16 04:32 RBC Morph Micro Appear NORMAL (NORMAL) 10/04/16 04:32 Eos Smear Source URINE 10/04/16 14:52 Eos Smear Total Cells NONE SEEN (NONE SEEN) 10/04/16 14:52 PT 10.2 SECONDS (9.5-11.5) 10/04/16 02:03 INR 0.98 (0.5-1.4) 10/04/16 02:03 PTT (Actin FS) 54.7 SECONDS (26.0-38.0) H 10/05/16 04:32 Specimen Source Arterial 10/05/16 09:19 Sample Site Right Radial 10/05/16 09:19 pH 7.35 (7.35-7.45) 10/05/16 09:19 pCO2 51.0 mmHg (35.0-45.0) H 10/05/16 09:19 pO2 63.0 mmHg (80.0-100.0) L 10/05/16 09:19 HCO3 28.2 mEq/L (20.0-26.0) H 10/05/16 09:19 Base Excess 1.8 mEq/L (-3.0-3.0) 10/05/16 09:19 O2 Saturation 91.0 % (92.0-100.0) L 10/05/16 09:19 Simon Test PASS 10/05/16 09:19 Vent Rate 12 10/04/16 08:55 Inspired O2 50 10/05/16 09:19 Tidal Volume 350 10/04/16 08:55 PEEP 4 10/04/16 08:55 Pressure (ins/psv/peep) NA 10/04/16 08:55 Critical Value PW 10/05/16 09:19 Sodium 137 mEq/L (136-145) 10/05/16 04:32 Potassium 4.7 mEq/L (3.5-5.1) 10/05/16 04:32 Chloride 102 mEq/L (98-107) 10/05/16 04:32 Carbon Dioxide 31.7 mEq/L (21.0-31.0) H 10/05/16 04:32 Anion Gap 8.0 (7.0-16.0) 10/05/16 04:32 BUN 53 mg/dL (7-25) H 10/05/16 04:32 Creatinine 1.7 mg/dL (0.7-1.3) H 10/05/16 04:32 Est GFR ( Amer) TNP 10/05/16 04:32 Est GFR (Non-Af Amer) TNP 10/05/16 04:32 BUN/Creatinine Ratio 31.2 10/05/16 04:32 Glucose 139 mg/dL (70-105) H 10/05/16 04:32 Whole Bld Lactic Acid 0.79 mmol/L (0.60-1.99) 10/02/16 14:50 Uric Acid 8.5 mg/dL (4.4-7.6) H 10/05/16 04:32 Calcium 9.1 mg/dL (8.6-10.3) 10/05/16 04:32 Phosphorus 4.7 mg/dL (2.5-5.0) 10/05/16 04:32 Magnesium 2.4 mg/dL (1.9-2.7) 10/05/16 04:32 Total Bilirubin 0.4 mg/dL (0.3-1.0) 10/05/16 04:32 AST 87 U/L (13-39) H 10/05/16 04:32 ALT 37 U/L (7-52) 10/05/16 04:32 Alkaline Phosphatase 38 U/L (34-104) 10/05/16 04:32 Ammonia 34 umol/L (16-53) 10/05/16 04:32 Troponin I 43.46 ng/mL (0.01-0.05) H* 10/05/16 04:32 B-Natriuretic Peptide 3040.0 pg/mL (5.0-100.0) H 10/05/16 04:32 Total Protein 6.6 gm/dL (6.0-8.3) 10/05/16 04:32 Albumin 3.0 gm/dL (4.2-5.5) L 10/05/16 04:32 Globulin 3.6 gm/dL 10/05/16 04:32 Albumin/Globulin Ratio 0.8 (1.0-1.8) L 10/05/16 04:32 Triglycerides 122 mg/dL (<150) 10/04/16 04:32 Cholesterol 132 mg/dL (<200) 10/04/16 04:32 LDL Cholesterol Direct 83 mg/dL (75-193) 10/04/16 04:32 HDL Cholesterol 33 mg/dL (23-92) 10/04/16 04:32 TSH 1.79 uIU/ml (0.34-5.60) 10/04/16 04:32 Urine Source CLEAN C 10/03/16 04:10 Urine Color TYREE 10/03/16 04:10 Urine Clarity SLIGHT HAZY (CLEAR) 10/03/16 04:10 Urine pH 5.5 10/03/16 04:10 Ur Specific [place] 1.025 (1.005-1.030) 10/03/16 04:10 Urine Protein 100 mg/dL (NEGATIVE) H 10/03/16 04:10 Urine Glucose (UA) NEGATIVE mg/dL (NEGATIVE) 10/03/16 04:10 Urine Ketones NEGATIVE mg/dL (NEGATIVE) 10/03/16 04:10 Urine Blood NEGATIVE (NEGATIVE) 10/03/16 04:10 Urine Nitrate NEGATIVE (NEGATIVE) 10/03/16 04:10 Urine Bilirubin NEGATIVE (NEGATIVE) 10/03/16 04:10 Urine Urobilinogen 0.2 E.U./dL (0.2 - 1.0) 10/03/16 04:10 Ur Leukocyte Esterase NEGATIVE (NEGATIVE) 10/03/16 04:10 Urine RBC 0-1 /hpf (0-5) 10/03/16 04:10 Urine WBC 0-2 /hpf (0-5) 10/03/16 04:10 Ur Epithelial Cells OCCASIONAL /lpf (FEW) 10/03/16 04:10 Amorphous Sediment MODERATE URATES (NONE SEEN) 10/03/16 04:10 Urine Bacteria 1+ /hpf (NONE SEEN) H 10/03/16 04:10 Ur Random Sodium 30 mmol/L 10/04/16 14:52 Urine Creatinine 131.0 mg/dl (39.0-259.0) 10/04/16 14:52 - Physical Exam Vitals and I&O: Vital Signs Temp 98 F 10/05/16 10:00 Pulse 89 10/05/16 11:17 Resp 18 10/05/16 11:17 BP 105/73 10/05/16 11:00 Pulse Ox 96 10/05/16 11:17 Intake & Output 10/04/16 10/05/16 10/05/16 18:59 06:59 18:59 Intake Total 441 356.2 Output Total 300 100 Balance 141 256.2 Intake: Intake, IV Amount 141 156.2 Heparin 25,000 Units In 91 156.2 D5W 25,000 units In 250 ml @ Titrate IV TITR PRN Rx#:[id number] cefTRIAXone 1 gm In 50 Dextrose 5% 50 ml @ 100 mls/hr IV Q24H [facility] Rx#: [id number] Oral 300 200 Output: Urine 300 100 Other: # Bowel Movements 0 0 Active Medications: Current Medications Acetaminophen (Tylenol) 650 mg PO Q4HR PRN PRN Reason: Fever > 101 Stop: 12/01/16 15:05 Acetaminophen/Hydrocodone Bitart ([place] 10 Mg/325 Mg) 1 tab PO Q4H PRN PRN Reason: pain Stop: 12/01/16 15:05 Last Admin: 10/05/16 10:18 Dose: 1 tab Albuterol Sulfate (Albuterol 2.5mg/3ml Neb Ud) 2.5 mg HHN Q2HR PRN PRN Reason: Wheezing Stop: 12/01/16 15:05 Last Admin: 10/03/16 14:35 Dose: 2.5 mg Albuterol Sulfate (Vospire Er) 4 mg PO BID [facility] Stop: 12/01/16 16:59 Last Admin: 10/05/16 14:16 Dose: 4 mg Albuterol/Ipratropium (Duoneb Neb) 3 ml HHN [id number] [facility] Stop: 12/02/16 18:59 Last Admin: 10/05/16 11:17 Dose: 3 ml Aspirin (Aspirin Chewable) 81 mg PO DAILY [facility] Stop: 12/02/16 08:59 Last Admin: 10/05/16 08:12 Dose: 81 mg Atorvastatin Calcium (Lipitor) 10 mg PO DAILY [facility] PRN Reason: Protocol Stop: 12/03/16 08:59 Last Admin: 10/05/16 08:12 Dose: 10 mg Budesonide (Pulmicort) 1 mg HHN BIDRT [facility] Stop: 12/02/16 18:59 Last Admin: 10/05/16 07:04 Dose: 1 mg Carvedilol (Coreg) 3.125 mg PO DAILY [facility] Stop: 12/02/16 08:59 Last Admin: 10/05/16 08:11 Dose: 3.125 mg Furosemide (Lasix) 20 mg PO DAILY [facility] Stop: 12/04/16 08:59 Last Admin: 10/05/16 09:00 Dose: 20 mg Ceftriaxone Sodium 1 gm/ (Dextrose) 50 mls @ 100 mls/hr IV Q24H [facility] Stop: 12/02/16 15:29 Last Infusion: 10/04/16 17:45 Dose: Infused Azithromycin 500 mg/ Sodium (Chloride) 250 mls @ 250 mls/hr IV Q24HR [facility] Stop: 12/02/16 15:29 Last Admin: 10/04/16 18:07 Dose: 250 mls/hr Heparin Sodium/Dextrose (Heparin Drip) 25,000 units in 250 mls @ 0 mls/hr IV TITR PRN; Protocol; Titrate PRN Reason: PROTOCOL Stop: 12/03/16 02:07 Last Admin: 10/04/16 23:01 Dose: 12 mls/hr Sodium Chloride (Nacl 0.9%) 1,000 mls @ 40 mls/hr IV .Q24H [facility] Stop: 12/03/16 13:38 Last Admin: 10/04/16 16:45 Dose: 40 mls/hr Ipratropium [place] (Atrovent Neb 0.5mg/2.5ml) 0.5 mg HHN Q2HR PRN PRN Reason: Wheezing Stop: 12/01/16 15:05 Last Admin: 10/03/16 14:35 Dose: 0.5 mg Lactobacillus Rhamnosus (Culturelle) 1 each PO DAILY [facility] Stop: 12/04/16 08:59 Last Admin: 10/05/16 11:37 Dose: 1 each Lactulose (Cephulac) 30 gm PO BID [facility] Stop: 12/04/16 16:59 Lisinopril (Zestril) 5 mg PO DAILY [facility] Stop: 12/03/16 08:59 Last Admin: 10/05/16 08:11 Dose: 5 mg Lorazepam (Ativan) 0.5 mg PO BID PRN; Protocol PRN Reason: Anxiety Stop: 12/01/16 15:05 Last Admin: 10/05/16 08:12 Dose: 0.5 mg Lorazepam (Ativan) 1 mg IVP Q4HR PRN; Protocol PRN Reason: Agitation Stop: 12/02/16 18:57 Last Admin: 10/03/16 21:56 Dose: 1 mg Methylprednisolone Sodium Succinate (Solu-Medrol) 40 mg IV Q4HR [facility] Stop: 12/02/16 15:59 Last Admin: 10/05/16 11:37 Dose: 40 mg Mirtazapine (Remeron) 15 mg PO HS [facility] PRN Reason: Protocol Stop: 12/01/16 20:59 Last Admin: 10/04/16 21:53 Dose: 15 mg Miscellaneous (Vte Chemical Prophylaxis Screen/ Admission) 1 ea PRN PRN PRN Reason: PROTOCOL Stop: 12/01/16 16:51 Miscellaneous (Heparin Drip Per Pharmacy) 1 ea PRN [facility] PRN Reason: Protocol Stop: 12/03/16 01:59 Miscellaneous (Probiotic Screen) 1 ea PRN PRN PRN Reason: PROTOCOL Stop: 12/04/16 08:41 Mupirocin (Bactroban Oint) 1 appl TP BID [facility] Stop: 12/02/16 16:59 Last Admin: 10/05/16 09:00 Dose: 1 appl Nitroglycerin (Nitrostat) 0.4 mg SL Q5MIN PRN PRN Reason: Chest Pain Stop: 12/02/16 06:44 Last Admin: 10/03/16 10:31 Dose: 0.4 mg Pantoprazole Sodium (Protonix) 40 mg PO DAILY [facility] Stop: 12/02/16 07:29 Last Admin: 10/05/16 11:36 Dose: 40 mg Senna (Senna) 8.6 mg PO BID [facility] Stop: 12/01/16 16:59 Last Admin: 10/05/16 09:00 Dose: 8.6 mg General: Alert, Mild distress HEENT: Atraumatic, Mucous membr. moist/pink Neck: Supple, +2 carotid pulse wo bruit Cardiovascular: Regular rate, Normal S1, Normal S2 Lungs: Other (few rhondchi, exp wheezes) Abdomen: Bowel sounds, Soft Extremities: no Edema Neurological: Sensation intact Skin: no Rash Psych/Mental Status: Mood NL - Procedures Procedures: Procedures Procedure Code Date ASSISTANCE WITH RESPIRATORY VENTILATION, 24-96 HRS, CPAP [id number] 10/02/16 POS AIRWAY PRESSURE CPAP 79698 10/02/16 Assessment/Plan - Problem List Patient Problems: All Active Problems SOB (Acute ~10/02/16) - Assessment Assessment: NARESH exacerbation of COPD right HAP cavity/mass lesion right apex CAD NSTE [place] elevated BNP possibly pulm htn, structural heart ds., ? CHF PAD dyslipidemia severe malnutrition - Plan Plan: Lab - Result Diagrams 10/05/16 04:32 10/05/16 04:32 Current Medications Acetaminophen (Tylenol) 650 mg PO Q4HR PRN PRN Reason: Fever > 101 Stop: 12/01/16 15:05 Acetaminophen/Hydrocodone Bitart ([place] 10 Mg/325 Mg) 1 tab PO Q4H PRN PRN Reason: pain Stop: 12/01/16 15:05 Last Admin: 10/05/16 10:18 Dose: 1 tab Albuterol Sulfate (Albuterol 2.5mg/3ml Neb Ud) 2.5 mg HHN Q2HR PRN PRN Reason: Wheezing Stop: 12/01/16 15:05 Last Admin: 10/03/16 14:35 Dose: 2.5 mg Albuterol Sulfate (Vospire Er) 4 mg PO BID [facility] Stop: 12/01/16 16:59 Last Admin: 10/05/16 14:16 Dose: 4 mg Albuterol/Ipratropium (Duoneb Neb) 3 ml HHN [id number] [facility] Stop: 12/02/16 18:59 Last Admin: 10/05/16 11:17 Dose: 3 ml Aspirin (Aspirin Chewable) 81 mg PO DAILY [facility] Stop: 12/02/16 08:59 Last Admin: 10/05/16 08:12 Dose: 81 mg Atorvastatin Calcium (Lipitor) 10 mg PO DAILY [facility] PRN Reason: Protocol Stop: 12/03/16 08:59 Last Admin: 10/05/16 08:12 Dose: 10 mg Budesonide (Pulmicort) 1 mg HHN BIDRT [facility] Stop: 12/02/16 18:59 Last Admin: 10/05/16 07:04 Dose: 1 mg Carvedilol (Coreg) 3.125 mg PO DAILY [facility] Stop: 12/02/16 08:59 Last Admin: 10/05/16 08:11 Dose: 3.125 mg Furosemide (Lasix) 20 mg PO DAILY [facility] Stop: 12/04/16 08:59 Last Admin: 10/05/16 09:00 Dose: 20 mg Ceftriaxone Sodium 1 gm/ (Dextrose) 50 mls @ 100 mls/hr IV Q24H [facility] Stop: 12/02/16 15:29 Last Infusion: 10/04/16 17:45 Dose: Infused Azithromycin 500 mg/ Sodium (Chloride) 250 mls @ 250 mls/hr IV Q24HR [facility] Stop: 12/02/16 15:29 Last Admin: 10/04/16 18:07 Dose: 250 mls/hr Heparin Sodium/Dextrose (Heparin Drip) 25,000 units in 250 mls @ 0 mls/hr IV TITR PRN; Protocol; Titrate PRN Reason: PROTOCOL Stop: 12/03/16 02:07 Last Admin: 10/04/16 23:01 Dose: 12 mls/hr Sodium Chloride (Nacl 0.9%) 1,000 mls @ 40 mls/hr IV .Q24H [facility] Stop: 12/03/16 13:38 Last Admin: 10/04/16 16:45 Dose: 40 mls/hr Ipratropium [place] (Atrovent Neb 0.5mg/2.5ml) 0.5 mg HHN Q2HR PRN PRN Reason: Wheezing Stop: 12/01/16 15:05 Last Admin: 10/03/16 14:35 Dose: 0.5 mg Lactobacillus Rhamnosus (Culturelle) 1 each PO DAILY [facility] Stop: 12/04/16 08:59 Last Admin: 10/05/16 11:37 Dose: 1 each Lactulose (Cephulac) 30 gm PO BID [facility] Stop: 12/04/16 16:59 Lisinopril (Zestril) 5 mg PO DAILY [facility] Stop: 12/03/16 08:59 Last Admin: 10/05/16 08:11 Dose: 5 mg Lorazepam (Ativan) 0.5 mg PO BID PRN; Protocol PRN Reason: Anxiety Stop: 12/01/16 15:05 Last Admin: 10/05/16 08:12 Dose: 0.5 mg Lorazepam (Ativan) 1 mg IVP Q4HR PRN; Protocol PRN Reason: Agitation Stop: 12/02/16 18:57 Last Admin: 10/03/16 21:56 Dose: 1 mg Methylprednisolone Sodium Succinate (Solu-Medrol) 40 mg IV Q4HR [facility] Stop: 12/02/16 15:59 Last Admin: 10/05/16 11:37 Dose: 40 mg Mirtazapine (Remeron) 15 mg PO HS [facility] PRN Reason: Protocol Stop: 12/01/16 20:59 Last Admin: 10/04/16 21:53 Dose: 15 mg Miscellaneous (Vte Chemical Prophylaxis Screen/ Admission) 1 ea PRN PRN PRN Reason: PROTOCOL Stop: 12/01/16 16:51 Miscellaneous (Heparin Drip Per Pharmacy) 1 ea PRN [facility] PRN Reason: Protocol Stop: 12/03/16 01:59 Miscellaneous (Probiotic Screen) 1 ea PRN PRN PRN Reason: PROTOCOL Stop: 12/04/16 08:41 Mupirocin (Bactroban Oint) 1 appl TP BID [facility] Stop: 12/02/16 16:59 Last Admin: 10/05/16 09:00 Dose: 1 appl Nitroglycerin (Nitrostat) 0.4 mg SL Q5MIN PRN PRN Reason: Chest Pain Stop: 12/02/16 06:44 Last Admin: 10/03/16 10:31 Dose: 0.4 mg Pantoprazole Sodium (Protonix) 40 mg PO DAILY [facility] Stop: 12/02/16 07:29 Last Admin: 10/05/16 11:36 Dose: 40 mg Senna (Senna) 8.6 mg PO BID [facility] Stop: 12/01/16 16:59 Last Admin: 10/05/16 09:00 Dose: 8.6 mg kidney fnc basically the same w/ cr. 0f 1.7 FE Na 0.28% suggestive of pre renal component f/u echo restarted on Lasix f/u electrolytes, cbc
[2016-10-05] MEDS: Sodium Chloride 0.9% 1,000 ML IV SCH (15:57)
--- NOTE | 2016-10-05 16:27 | Cardiology ---
ECHOCARDIOGRAM Patient of Dr. Paulino Benson. M-MODE ECHOCARDIOGRAM: Mitral valve, anterior leaflet of mitral valve shows decreased excursion, EF velocity. Posterior leaflet of the mitral valve shows decreased excursion. Left ventricular posterior wall shows increased thickness, decreased excursion. Interventricular septum shows increased thickness, decreased excursion, ejection fraction 30%. Left atrium normal. Aortic root shows normal dimension, normal excursion of aortic leaflets. CONCLUSION: Hypertrophy of the left ventricle, cardiomyopathy, ejection fraction 20%. 2D ECHO: Long axis view shows enlarged left ventricular cavity with decreased ejection fraction, hypertrophy of the left ventricle. Left atrium normal. Aortic root shows normal dimension, normal excursion of aortic leaflets. Short axis view of mitral valve normal. Short axis view of aortic valve normal. Apical four chamber view shows enlarged left ventricular cavity with decreased ejection fraction. Left atrium normal. Right ventricular cavity, right atrium normal, no pericardial effusion. CONCLUSION: Hypertrophy of the left ventricle, cardiomyopathy, ejection fraction 20%. Doppler study showed trace triscuspid regurgitation. [facility]# [id number]
[2016-10-05] MEDS: Azithromycin 500 MG in Sodium Chloride 0.9% 250 ML IV SCH (16:37)
[2016-10-05] MEDS: Lactulose 10 Gm/15 mL 30mL UDC PO SCH (17:50)
--- NOTE | 2016-10-05 23:11 | Progress Notes ---
PULMONARY PROGRESS NOTE PROBLEMS: 1. Acute exacerbation of chronic obstructive pulmonary disease. 2. Right lower lobe pneumonia with areas of interstitial pulmonary fibrosis. 3. Status post previous lung resection. 4. Possibly obstructive sleep apnea syndrome. SYMPTOMS: The patient is off BiPAP and breathing okay. No symptomatology except for coughing and wheezing, though, much less than before. PHYSICAL EXAMINATION: VITAL SIGNS: Temperature is 98.5, pulse is about 100, and saturation is 97% on a Venturi mask. NECK: Veins not visualized. CHEST: Still shows occasional rhonchi with some secretory noise. HEART: Regular. ABDOMEN: Slightly distended. EXTREMITIES: Shows no peripheral edema. LABORATORY DATA: White count is 13.8 and hemoglobin 10.7. ABG shows compensated respiratory acidemia on 50% of oxygen. Electrolytes are okay with BUN 53 and the patient's troponin is 43. BNP is 3040. ASSESSMENT: The patient clinically may be slightly better than has been, has significant advanced chronic obstructive pulmonary disease, suspect pulmonary hypertension with severe tracheobronchitis with dense infiltrate, right basal area. PLANS AND SUGGESTIONS: We will go ahead and continue current treatment. We will give O2 biopsy myself and attempt mobilization. We will give some laxative, etc., and go from there. JOB# [id number]
[2016-10-06] MEDS: methylPREDNISolone SS 40 mg Vial IV SCH ×7 (00:18→23:30)
[2016-10-06 04:08] LABS: T3 FREE 1.4 pg/mL (2.0-4.4); T4 FREE 1.14 ng/dL (0.82-1.77)
[2016-10-06] MEDS: Albuterol/Ipratropium Neb 3 ML AERS HHN SCH ×4 (07:19→19:25)
[2016-10-06] MEDS: Budesonide 0.5 Mg/2 mL Ud HHN SCH (07:23)
[2016-10-06 08:13] LABS: HEMATOCRIT 31.1 % (39.0-49.0); HEMOGLOBIN 10.5 gm/dL (12.6-17.4); MEAN CELL VOLUME 93.9 fl (80-99); MEAN CORPUSCULAR HEMOGLOBIN 31.5 pg (27.0-31.0); MEAN CORPUSCULAR HGB CONC 33.6 pg (28.0-36.0); MEAN PLATELET VOLUME 7.4 fl; PLATELET COUNT 190 Th/cmm (150-400); RED BLOOD COUNT 3.31 Mil/cmm (3.80-5.80); RED CELL DISTRIBUTION WIDTH 17.2 % (11.5-20.0)
[2016-10-06 08:27] LABS: WHITE BLOOD COUNT 13.2 Th/cmm (4.8-10.8)
[2016-10-06] MEDS: Lactulose 10 Gm/15 mL 30mL UDC PO SCH ×2 (08:29→17:32)
[2016-10-06] MEDS: Pantoprazole 40 mg EC Tab PO SCH (08:30)
[2016-10-06] MEDS: Atorvastatin Calcium 10 MG TAB PO SCH (08:31)
[2016-10-06] MEDS: Aspirin 81mg Chewable Tab PO SCH (08:31)
[2016-10-06] MEDS: Hydrocodone/APAP 10 mg/325 mg Tab PO PRN ×4 (08:32→23:31)
[2016-10-06 08:33] LABS: ALB/GLOB RATIO 0.8 (1.0-1.8); ALKALINE PHOSPHATASE 38 U/L (34-104); ANION GAP 4.8 (7.0-16.0); BILIRUBIN,TOTAL 0.5 mg/dL (0.3-1.0); BUN - UREA NITROGEN 52 mg/dL (7-25); BUN/CREATININE RATIO 34.7; CALCIUM SERUM 9.1 mg/dL (8.6-10.3); CARBON DIOXIDE 33.2 mEq/L (21.0-31.0); CHLORIDE 104 mEq/L (98-107); CREATININE - SERUM 1.5 mg/dL (0.7-1.3); GLUCOSE 144 mg/dL (70-105); SGOT 26 U/L (13-39); SGPT/ALT 27 U/L (7-52); SODIUM SERUM 138 mEq/L (136-145)
[2016-10-06] MEDS: Albuterol Sulfate ER 4 mg Tab PO SCH ×2 (09:00→09:12)
[2016-10-06] MEDS: Lactobacillus Rhamnosus 10 Billion CFU Capsule PO SCH (09:00)
--- NOTE | 2016-10-06 09:15 | Diagnostic Imaging Report ---
Portable chest x-ray HISTORY: Pneumonia Compared with prior exam of October 05, 2016, no change in extensive chronic bilateral infiltrates and right apical pleural thickening. Again, a cavitating lesion within the right apical area noted on a prior CT scan of October 02, 2016 is not clearly visualized on this plain radiograph. IMPRESSION: No change in the pulmonary status as noted above.
[2016-10-06 09:49] LABS: BAND NEUTROPHILE 2 % (0-10); NEUTROPHILS 89 % (40-80); TOTAL CELLS COUNTED 100
[2016-10-06 09:50] LABS: PLATELET ESTIMATE ADEQUATE (NORMAL); PLATELET MORPHOLOGY NORMAL (NORMAL)
[2016-10-06 10:56] LABS: ABG SOURCE Arterial; BE(B) 5.6 mEq/L (-3.0-3.0); HCO3 29.2 mEq/L (20.0-26.0)
[2016-10-06 10:57] LABS: ALLEN TEST PASS; CRITICAL VALUES REPORTED BY PW; FIO2 50
[2016-10-06 13:15] LABS: MICROALBUMIN RANDOM RUINE 84.6 ug/mL (Not Estab.)
[2016-10-06] MEDS: Heparin 25,000 Units In D5W 25,000 UNITS/250 ML BAG IV PRN (13:30)
--- NOTE | 2016-10-06 14:33 | General Progress Note ---
Subjective - Review of Systems Service Date: 10/06/16 Subjective: more alert today, verbal, coherent, on VM Objective - Results Result Diagrams: 10/06/16 07:55 10/06/16 07:55 Recent Labs: Laboratory Last Values WBC 13.2 Th/cmm (4.8-10.8) H 10/06/16 07:55 RBC 3.31 Mil/cmm (3.80-5.80) L 10/06/16 07:55 Hgb 10.5 gm/dL (12.6-17.4) L 10/06/16 07:55 Hct 31.1 % (39.0-49.0) L 10/06/16 07:55 MCV 93.9 fl (80-99) 10/06/16 07:55 MCH 31.5 pg (27.0-31.0) H 10/06/16 07:55 MCHC Differential 33.6 pg (28.0-36.0) 10/06/16 07:55 RDW 17.2 % (11.5-20.0) 10/06/16 07:55 Plt Count 190 Th/cmm (150-400) 10/06/16 07:55 MPV 7.4 fl 10/06/16 07:55 Neutrophils % 85.2 % (40.0-80.0) H 10/03/16 06:36 Band Neutrophils % 2 % (0-10) 10/06/16 07:55 Lymphocytes % 11.6 % (20.0-50.0) L 10/03/16 06:36 Monocytes % 2.6 % (2.0-10.0) 10/03/16 06:36 Eosinophils % 0.2 % (0.0-5.0) 10/03/16 06:36 Basophils % 0.4 % (0.0-2.0) 10/03/16 06:36 Neutrophils (Manual) 89 % (40-80) H 10/06/16 07:55 Lymphocytes 7 % (20-50) L 10/06/16 07:55 Monocytes 2 % (2-10) 10/06/16 07:55 Eosinophils 1 % (0-5) 10/02/16 12:30 Platelet Estimate ADEQUATE (NORMAL) 10/06/16 07:55 Platelet Morphology NORMAL (NORMAL) 10/06/16 07:55 RBC Morph Micro Appear NORMAL (NORMAL) 10/06/16 07:55 Eos Smear Source URINE 10/04/16 14:52 Eos Smear Total Cells NONE SEEN (NONE SEEN) 10/04/16 14:52 PT 10.2 SECONDS (9.5-11.5) 10/04/16 02:03 INR 0.98 (0.5-1.4) 10/04/16 02:03 PTT (Actin FS) 57.0 SECONDS (26.0-38.0) H 10/06/16 07:55 Specimen Source Arterial 10/06/16 10:32 Sample Site Right Radial 10/06/16 10:32 pH 7.40 (7.35-7.45) 10/06/16 10:32 pCO2 51.0 mmHg (35.0-45.0) H 10/06/16 10:32 pO2 63.0 mmHg (80.0-100.0) L 10/06/16 10:32 HCO3 29.2 mEq/L (20.0-26.0) H 10/06/16 10:32 Base Excess 5.6 mEq/L (-3.0-3.0) H 10/06/16 10:32 O2 Saturation 92.0 % (92.0-100.0) 10/06/16 10:32 Simon Test PASS 10/06/16 10:32 Vent Rate 12 10/04/16 08:55 Inspired O2 50 10/06/16 10:32 Tidal Volume 350 10/04/16 08:55 PEEP 4 10/04/16 08:55 Pressure (ins/psv/peep) NA 10/04/16 08:55 Critical Value PW 10/06/16 10:32 Sodium 138 mEq/L (136-145) 10/06/16 07:55 Potassium 4.0 mEq/L (3.5-5.1) 10/06/16 07:55 Chloride 104 mEq/L (98-107) 10/06/16 07:55 Carbon Dioxide 33.2 mEq/L (21.0-31.0) H 10/06/16 07:55 Anion Gap 4.8 (7.0-16.0) L 10/06/16 07:55 BUN 52 mg/dL (7-25) H 10/06/16 07:55 Creatinine 1.5 mg/dL (0.7-1.3) H 10/06/16 07:55 Est GFR ( Amer) TNP 10/06/16 07:55 Est GFR (Non-Af Amer) TNP 10/06/16 07:55 BUN/Creatinine Ratio 34.7 10/06/16 07:55 Glucose 144 mg/dL (70-105) H 10/06/16 07:55 Whole Bld Lactic Acid 0.79 mmol/L (0.60-1.99) 10/02/16 14:50 Uric Acid 8.5 mg/dL (4.4-7.6) H 10/05/16 04:32 Calcium 9.1 mg/dL (8.6-10.3) 10/06/16 07:55 Phosphorus 4.7 mg/dL (2.5-5.0) 10/05/16 04:32 Magnesium 2.4 mg/dL (1.9-2.7) 10/05/16 04:32 Total Bilirubin 0.5 mg/dL (0.3-1.0) 10/06/16 07:55 AST 26 U/L (13-39) 10/06/16 07:55 ALT 27 U/L (7-52) 10/06/16 07:55 Alkaline Phosphatase 38 U/L (34-104) 10/06/16 07:55 Ammonia 34 umol/L (16-53) 10/05/16 04:32 Troponin I 18.67 ng/mL (0.01-0.05) H* D 10/06/16 07:55 B-Natriuretic Peptide 3280.0 pg/mL (5.0-100.0) H 10/06/16 07:55 Total Protein 6.6 gm/dL (6.0-8.3) 10/06/16 07:55 Albumin 3.0 gm/dL (4.2-5.5) L 10/06/16 07:55 Globulin 3.6 gm/dL 10/06/16 07:55 Albumin/Globulin Ratio 0.8 (1.0-1.8) L 10/06/16 07:55 Triglycerides 122 mg/dL (<150) 10/04/16 04:32 Cholesterol 132 mg/dL (<200) 10/04/16 04:32 LDL Cholesterol Direct 83 mg/dL (75-193) 10/04/16 04:32 HDL Cholesterol 33 mg/dL (23-92) 10/04/16 04:32 Free T4 1.14 ng/dL (0.82-1.77) 10/04/16 04:32 Free T3 1.4 pg/mL (2.0-4.4) L 10/04/16 04:32 TSH 1.79 uIU/ml (0.34-5.60) 10/04/16 04:32 Urine Source CLEAN C 10/03/16 04:10 Urine Color TYREE 10/03/16 04:10 Urine Clarity SLIGHT HAZY (CLEAR) 10/03/16 04:10 Urine pH 5.5 10/03/16 04:10 Ur Specific [place] 1.025 (1.005-1.030) 10/03/16 04:10 Urine Protein 100 mg/dL (NEGATIVE) H 10/03/16 04:10 Urine Glucose (UA) NEGATIVE mg/dL (NEGATIVE) 10/03/16 04:10 Urine Ketones NEGATIVE mg/dL (NEGATIVE) 10/03/16 04:10 Urine Blood NEGATIVE (NEGATIVE) 10/03/16 04:10 Urine Nitrate NEGATIVE (NEGATIVE) 10/03/16 04:10 Urine Bilirubin NEGATIVE (NEGATIVE) 10/03/16 04:10 Urine Urobilinogen 0.2 E.U./dL (0.2 - 1.0) 10/03/16 04:10 Ur Leukocyte Esterase NEGATIVE (NEGATIVE) 10/03/16 04:10 Urine RBC 0-1 /hpf (0-5) 10/03/16 04:10 Urine WBC 0-2 /hpf (0-5) 10/03/16 04:10 Ur Epithelial Cells OCCASIONAL /lpf (FEW) 10/03/16 04:10 Amorphous Sediment MODERATE URATES (NONE SEEN) 10/03/16 04:10 Urine Bacteria 1+ /hpf (NONE SEEN) H 10/03/16 04:10 U Random Total Protein 43.0 mg/dL 10/06/16 05:30 Ur Random Sodium 30 mmol/L 10/04/16 14:52 Urine Collection Time 24 hours 10/06/16 05:30 Urine Total Volume 1300 ml 10/06/16 05:30 Urine Creatinine 113.2 mg/dl (Not Estab.) 10/04/16 14:52 Urine Microalbumin 84.6 ug/mL (Not Estab.) 10/04/16 14:52 Microalb/Creat Ratio 74.7 mg/g creat (0.0-30.0) H 10/04/16 14:52 U Tot Protein 24h, Calc 559.0 mg/24 hr (0-165) H 10/06/16 05:30 - Physical Exam Vitals and I&O: Vital Signs Temp 99 F 10/06/16 08:00 Pulse 82 10/06/16 11:07 Resp 18 10/06/16 11:07 BP 123/80 10/06/16 08:31 Pulse Ox 97 10/06/16 11:07 Intake & Output 10/05/16 10/06/16 10/06/16 18:59 06:59 18:59 Intake Total 1178 450 Output Total 450 1000 Balance 728 -550 Intake: Intake, IV Amount 928 250 Heparin 25,000 Units In 250 D5W 25,000 units In 250 ml @ Titrate IV TITR PRN Rx#:[id number] Sodium Chloride 0.9% 1, 928 000 ml @ 40 mls/hr IV . Q24H GAYLE Rx#:[id number] Oral 250 200 Output: Urine 450 1000 Stool 0 Active Medications: Current Medications Acetaminophen (Tylenol) 650 mg PO Q4HR PRN PRN Reason: Fever > 101 Stop: 12/01/16 15:05 Acetaminophen/Hydrocodone Bitart (Clifford 10 Mg/325 Mg) 1 tab PO Q4H PRN PRN Reason: pain Stop: 12/01/16 15:05 Last Admin: 10/06/16 13:19 Dose: 1 tab Albuterol Sulfate (Albuterol 2.5mg/3ml Neb Ud) 2.5 mg HHN Q2HR PRN PRN Reason: Wheezing Stop: 12/01/16 15:05 Last Admin: 10/03/16 14:35 Dose: 2.5 mg Albuterol Sulfate (Vospire Er) 4 mg PO BID [facility] Stop: 12/01/16 16:59 Last Admin: 10/06/16 09:12 Dose: 4 mg Albuterol/Ipratropium (Duoneb Neb) 3 ml HHN [id number] [facility] Stop: 12/02/16 18:59 Last Admin: 10/06/16 11:07 Dose: 3 ml Aspirin (Aspirin Chewable) 81 mg PO DAILY [facility] Stop: 12/02/16 08:59 Last Admin: 10/06/16 08:31 Dose: 81 mg Atorvastatin Calcium (Lipitor) 10 mg PO DAILY G[facility] PRN Reason: Protocol Stop: 12/03/16 08:59 Last Admin: 10/06/16 08:31 Dose: 10 mg Budesonide (Pulmicort) 1 mg HHN BIDRT [facility] Stop: 12/02/16 18:59 Last Admin: 10/06/16 07:23 Dose: 1 mg Carvedilol (Coreg) 3.125 mg PO DAILY [facility] Stop: 12/02/16 08:59 Last Admin: 10/06/16 08:31 Dose: 3.125 mg Furosemide (Lasix) 40 mg IVP DAILY [facility] Stop: 12/04/16 16:14 Last Admin: 10/06/16 08:29 Dose: 40 mg Ceftriaxone Sodium 1 gm/ (Dextrose) 50 mls @ 100 mls/hr IV Q24H [facility] Stop: 12/02/16 15:29 Last Admin: 10/05/16 15:30 Dose: 100 mls/hr Heparin Sodium/Dextrose (Heparin Drip) 25,000 units in 250 mls @ 0 mls/hr IV TITR PRN; Protocol; Titrate PRN Reason: PROTOCOL Stop: 12/03/16 02:07 Last Admin: 10/06/16 13:30 Dose: 12 mls/hr Sodium Chloride (Nacl 0.9%) 1,000 mls @ 40 mls/hr IV .Q24H [facility] Stop: 12/03/16 13:38 Last Admin: 10/05/16 15:57 Dose: 40 mls/hr Vancomycin HCl 1.25 gm/ Sodium (Chloride) 250 mls @ 165 mls/hr IV Q24H [facility] Stop: 12/05/16 13:59 Ipratropium [place] (Atrovent Neb 0.5mg/2.5ml) 0.5 mg HHN Q2HR PRN PRN Reason: Wheezing Stop: 12/01/16 15:05 Last Admin: 10/03/16 14:35 Dose: 0.5 mg Lactobacillus Rhamnosus (Culturelle) 1 each PO DAILY [facility] Stop: 12/04/16 08:59 Last Admin: 10/06/16 09:00 Dose: 1 each Lactulose (Cephulac) 30 gm PO BID [facility] Stop: 12/04/16 16:59 Last Admin: 10/06/16 08:29 Dose: 30 gm Lisinopril (Zestril) 5 mg PO DAILY [facility] Stop: 12/03/16 08:59 Last Admin: 10/06/16 08:30 Dose: 5 mg Lorazepam (Ativan) 0.5 mg PO BID PRN; Protocol PRN Reason: Anxiety Stop: 12/01/16 15:05 Last Admin: 10/06/16 09:12 Dose: 0.5 mg Lorazepam (Ativan) 1 mg IVP Q4HR PRN; Protocol PRN Reason: Agitation Stop: 12/02/16 18:57 Last Admin: 10/03/16 21:56 Dose: 1 mg Methylprednisolone Sodium Succinate (Solu-Medrol) 40 mg IV Q4HR [facility] Stop: 12/02/16 15:59 Last Admin: 10/06/16 12:00 Dose: 40 mg Mirtazapine (Remeron) 15 mg PO HS [facility] PRN Reason: Protocol Stop: 12/01/16 20:59 Last Admin: 10/05/16 21:09 Dose: 15 mg Miscellaneous (Vte Chemical Prophylaxis Screen/ Admission) 1 ea PRN PRN PRN Reason: PROTOCOL Stop: 12/01/16 16:51 Miscellaneous (Heparin Drip Per Pharmacy) 1 ea PRN [facility] PRN Reason: Protocol Stop: 12/03/16 01:59 Miscellaneous (Probiotic Screen) 1 ea PRN PRN PRN Reason: PROTOCOL Stop: 12/04/16 08:41 Miscellaneous (Vancomycin Iv Per Pharmacy) 1 ea MC PRN [facility] Stop: 12/05/16 12:14 Mupirocin (Bactroban Oint) 1 appl TP BID [facility] Stop: 12/02/16 16:59 Last Admin: 10/06/16 09:00 Dose: 1 appl Nitroglycerin (Nitrostat) 0.4 mg SL Q5MIN PRN PRN Reason: Chest Pain Stop: 12/02/16 06:44 Last Admin: 10/03/16 10:31 Dose: 0.4 mg Pantoprazole Sodium (Protonix) 40 mg PO DAILY [facility] Stop: 12/02/16 07:29 Last Admin: 10/06/16 08:30 Dose: 40 mg Senna (Senna) 8.6 mg PO BID [facility] Stop: 12/01/16 16:59 Last Admin: 10/06/16 08:31 Dose: 8.6 mg General: Alert, Mild distress HEENT: Atraumatic, Mucous membr. moist/pink Neck: Supple, +2 carotid pulse wo bruit Cardiovascular: Regular rate, Normal S1, Normal S2 Lungs: Other (scattered rhonchi) Abdomen: Bowel sounds, Soft Extremities: no Edema Neurological: Sensation intact Skin: no Rash Psych/Mental Status: Mood NL - Procedures Procedures: Procedures Procedure Code Date ASSISTANCE WITH RESPIRATORY VENTILATION, 24-96 HRS, CPAP [id number] 10/02/16 POS AIRWAY PRESSURE CPAP 97254 10/02/16 Assessment/Plan - Problem List Patient Problems: All Active Problems SOB (Acute ~10/02/16) - Assessment Assessment: NARESH exacerbation of COPD right HAP cavity/mass lesion right apex CAD NSTE HI elevated BNP possibly pulm htn, structural heart ds., ? CHF PAD dyslipidemia severe malnutrition - Plan Plan: Lab - Result Diagrams 10/05/16 04:32 10/05/16 04:32 Current Medications Acetaminophen (Tylenol) 650 mg PO Q4HR PRN PRN Reason: Fever > 101 Stop: 12/01/16 15:05 Acetaminophen/Hydrocodone Bitart (Clifford 10 Mg/325 Mg) 1 tab PO Q4H PRN PRN Reason: pain Stop: 12/01/16 15:05 Last Admin: 10/05/16 10:18 Dose: 1 tab Albuterol Sulfate (Albuterol 2.5mg/3ml Neb Ud) 2.5 mg HHN Q2HR PRN PRN Reason: Wheezing Stop: 12/01/16 15:05 Last Admin: 10/03/16 14:35 Dose: 2.5 mg Albuterol Sulfate (Vospire Er) 4 mg PO BID [facility] Stop: 12/01/16 16:59 Last Admin: 10/05/16 14:16 Dose: 4 mg Albuterol/Ipratropium (Duoneb Neb) 3 ml HHN [id number] [facility] Stop: 12/02/16 18:59 Last Admin: 10/05/16 11:17 Dose: 3 ml Aspirin (Aspirin Chewable) 81 mg PO DAILY [facility] Stop: 12/02/16 08:59 Last Admin: 10/05/16 08:12 Dose: 81 mg Atorvastatin Calcium (Lipitor) 10 mg PO DAILY [facility] PRN Reason: Protocol Stop: 12/03/16 08:59 Last Admin: 10/05/16 08:12 Dose: 10 mg Budesonide (Pulmicort) 1 mg HHN BIDRT [facility] Stop: 12/02/16 18:59 Last Admin: 10/05/16 07:04 Dose: 1 mg Carvedilol (Coreg) 3.125 mg PO DAILY [facility] Stop: 12/02/16 08:59 Last Admin: 10/05/16 08:11 Dose: 3.125 mg Furosemide (Lasix) 20 mg PO DAILY [facility] Stop: 12/04/16 08:59 Last Admin: 10/05/16 09:00 Dose: 20 mg Ceftriaxone Sodium 1 gm/ (Dextrose) 50 mls @ 100 mls/hr IV Q24H [facility] Stop: 12/02/16 15:29 Last Infusion: 10/04/16 17:45 Dose: Infused Azithromycin 500 mg/ Sodium (Chloride) 250 mls @ 250 mls/hr IV Q24HR [facility] Stop: 12/02/16 15:29 Last Admin: 10/04/16 18:07 Dose: 250 mls/hr Heparin Sodium/Dextrose (Heparin Drip) 25,000 units in 250 mls @ 0 mls/hr IV TITR PRN; Protocol; Titrate PRN Reason: PROTOCOL Stop: 12/03/16 02:07 Last Admin: 10/04/16 23:01 Dose: 12 mls/hr Sodium Chloride (Nacl 0.9%) 1,000 mls @ 40 mls/hr IV .Q24H [facility] Stop: 12/03/16 13:38 Last Admin: 10/04/16 16:45 Dose: 40 mls/hr Ipratropium [place] (Atrovent Neb 0.5mg/2.5ml) 0.5 mg HHN Q2HR PRN PRN Reason: Wheezing Stop: 12/01/16 15:05 Last Admin: 10/03/16 14:35 Dose: 0.5 mg Lactobacillus Rhamnosus (Culturelle) 1 each PO DAILY [facility] Stop: 12/04/16 08:59 Last Admin: 10/05/16 11:37 Dose: 1 each Lactulose (Cephulac) 30 gm PO BID [facility] Stop: 12/04/16 16:59 Lisinopril (Zestril) 5 mg PO DAILY [facility] Stop: 12/03/16 08:59 Last Admin: 10/05/16 08:11 Dose: 5 mg Lorazepam (Ativan) 0.5 mg PO BID PRN; Protocol PRN Reason: Anxiety Stop: 12/01/16 15:05 Last Admin: 10/05/16 08:12 Dose: 0.5 mg Lorazepam (Ativan) 1 mg IVP Q4HR PRN; Protocol PRN Reason: Agitation Stop: 12/02/16 18:57 Last Admin: 10/03/16 21:56 Dose: 1 mg Methylprednisolone Sodium Succinate (Solu-Medrol) 40 mg IV Q4HR [facility] Stop: 12/02/16 15:59 Last Admin: 10/05/16 11:37 Dose: 40 mg Mirtazapine (Remeron) 15 mg PO HS [facility] PRN Reason: Protocol Stop: 12/01/16 20:59 Last Admin: 10/04/16 21:53 Dose: 15 mg Miscellaneous (Vte Chemical Prophylaxis Screen/ Admission) 1 ea PRN PRN PRN Reason: PROTOCOL Stop: 12/01/16 16:51 Miscellaneous (Heparin Drip Per Pharmacy) 1 ea PRN [facility] PRN Reason: Protocol Stop: 12/03/16 01:59 Miscellaneous (Probiotic Screen) 1 ea PRN PRN PRN Reason: PROTOCOL Stop: 12/04/16 08:41 Mupirocin (Bactroban Oint) 1 appl TP BID [facility] Stop: 12/02/16 16:59 Last Admin: 10/05/16 09:00 Dose: 1 appl Nitroglycerin (Nitrostat) 0.4 mg SL Q5MIN PRN PRN Reason: Chest Pain Stop: 12/02/16 06:44 Last Admin: 10/03/16 10:31 Dose: 0.4 mg Pantoprazole Sodium (Protonix) 40 mg PO DAILY [facility] Stop: 12/02/16 07:29 Last Admin: 10/05/16 11:36 Dose: 40 mg Senna (Senna) 8.6 mg PO BID [facility] Stop: 12/01/16 16:59 Last Admin: 10/05/16 09:00 Dose: 8.6 mg kidney fnc basically the same w/ cr. 0f 1.5 FE Na 0.28% suggestive of pre renal component awaiting echo Lasix increased & ivf dc'ed f/u electrolytes, cbc cxr still no change, stable
--- NOTE | 2016-10-06 15:20 | Consultation ---
Consult Note - Consult Note Service Date: 10/06/16 Consult Note: [id number]
[2016-10-06] MEDS: Sodium Chloride 0.9% 1,000 ML IV SCH (17:34)
--- NOTE | 2016-10-07 00:16 | Progress Notes ---
PULMONARY PROGRESS NOTE PROBLEM LIST: 1. Acute respiratory failure. 2. Extensive bilateral pneumonia. 3. Significant pulmonary scarring and COPD. SYMPTOMS: Nil. Feeling okay. No specific new symptoms. Still coughing, not able to bring sputum out and not had any bowel movements yet. PHYSICAL EXAMINATION: VITAL SIGNS: The patient's recorded vital signs: Temperature is 98, respirations is 18, and saturation is 97% on a Venturi mask. NECK: Veins not visualized. CHEST: Shows dorsal kyphosis with occasional rhonchi. HEART: Regular. ABDOMEN: Still distended, soft, and nontender. EXTREMITIES: Shows no peripheral edema. LABORATORY DATA: The patient's sputum does MRSA, Staphylococcus aureus and Proteus mirabilis. The patient's other laboratory studies show white count is 13.2, hemoglobin ____. ABG shows compensated respiratory acidemia, same as before, on 50% of Venturi mask. IMPRESSION: The patient is clinically not much changed. PLANS AND SUGGESTIONS: We will go ahead and continue current treatment. We will discuss with ID. There is no reason to isolate for TB, etc., as the patient has significant from previous COPD, etc., and go from there. IV antibiotic per ID and go from there. JOB# [id number]
[2016-10-07] MEDS: methylPREDNISolone SS 40 mg Vial IV SCH ×5 (04:30→20:12)
[2016-10-07 05:27] LABS: HEMATOCRIT 30.8 % (39.0-49.0); HEMOGLOBIN 10.4 gm/dL (12.6-17.4); MEAN CELL VOLUME 93.8 fl (80-99); MEAN CORPUSCULAR HEMOGLOBIN 31.8 pg (27.0-31.0); MEAN CORPUSCULAR HGB CONC 33.9 pg (28.0-36.0); PLATELET COUNT 192 Th/cmm (150-400); RED BLOOD COUNT 3.28 Mil/cmm (3.80-5.80); RED CELL DISTRIBUTION WIDTH 16.8 % (11.5-20.0)
[2016-10-07 05:31] LABS: WHITE BLOOD COUNT 16.7 Th/cmm (4.8-10.8)
[2016-10-07 05:46] LABS: ALB/GLOB RATIO 0.9 (1.0-1.8); ALKALINE PHOSPHATASE 37 U/L (34-104); ANION GAP 7.3 (7.0-16.0); BILIRUBIN,TOTAL 0.5 mg/dL (0.3-1.0); BUN - UREA NITROGEN 50 mg/dL (7-25); BUN/CREATININE RATIO 33.3; CALCIUM SERUM 9.3 mg/dL (8.6-10.3); CARBON DIOXIDE 33.7 mEq/L (21.0-31.0); CHLORIDE 102 mEq/L (98-107); CREATININE - SERUM 1.5 mg/dL (0.7-1.3); GLUCOSE 143 mg/dL (70-105); SGOT 13 U/L (13-39); SGPT/ALT 22 U/L (7-52); SODIUM SERUM 139 mEq/L (136-145)
[2016-10-07] MEDS: Budesonide 0.5 Mg/2 mL Ud HHN SCH ×2 (07:19→19:20)
[2016-10-07] MEDS: Albuterol/Ipratropium Neb 3 ML AERS HHN SCH ×4 (07:19→19:19)
[2016-10-07] MEDS: Heparin 25,000 Units In D5W 25,000 UNITS/250 ML BAG IV PRN (08:35)
[2016-10-07] MEDS: Aspirin 81mg Chewable Tab PO SCH (08:36)
[2016-10-07] MEDS: Albuterol Sulfate ER 4 mg Tab PO SCH ×2 (08:36→17:42)
[2016-10-07] MEDS: Lactobacillus Rhamnosus 10 Billion CFU Capsule PO SCH (08:36)
[2016-10-07] MEDS: Hydrocodone/APAP 10 mg/325 mg Tab PO PRN ×2 (08:36→17:42)
[2016-10-07] MEDS: Atorvastatin Calcium 10 MG TAB PO SCH (08:36)
[2016-10-07] MEDS: Pantoprazole 40 mg EC Tab PO SCH (08:36)
[2016-10-07] MEDS: Lactulose 10 Gm/15 mL 30mL UDC PO SCH ×2 (08:38→16:19)
--- NOTE | 2016-10-07 09:07 | Consultation ---
REFERRING PHYSICIAN: Dr. Paulino Benson. REASON FOR CONSULTATION: Pneumonia and right upper lobe cavitary lesion. HISTORY OF PRESENT ILLNESS: The patient is a 71-year-old male with a past medical history of CHF, COPD, coronary artery disease, history of NE, muscle weakness and peripheral vascular disease now presented to the ER for shortness of breath with difficulty breathing. It was associated with chest pain. On initial evaluation, the patient's temperature was 98.7 degrees Fahrenheit and WBC count was 19,300. The patient was suspected of pneumonia and started on Rocephin and Zithromax. The patient had CT scan of the chest performed that showed right upper lobe cavitary lesion. The patient's sputum culture grew MRSA, so ID consult was called for further antibiotic management. Meanwhile, the patient was also diagnosed to have NE. PAST MEDICAL HISTORY: Includes as mentioned above CHF, COPD, coronary artery disease, history of NE, muscle weakness, peripheral vascular disease. PAST SURGICAL HISTORY: Includes partial lung resection and hernia repair. SOCIAL HISTORY: The patient is resident of [facility]. Denies any alcohol use. He quit smoking 4 years ago. FAMILY HISTORY: The patient has family history of colon cancer. ALLERGIES: Sulfa and Tagamet. MEDICATIONS: As per medication reconciliation sheet. Antibiotic wilcox, the patient right now is on vancomycin and Rocephin. The patient had received 3 days of Zithromax. REVIEW OF SYSTEMS: GENERAL: The patient denies any fever or chills. The patient had some mild generalized weakness. HEENT: No diplopia, no photophobia and no sore throat. RESPIRATORY: The patient has productive cough without any hemoptysis. SKIN: The patient has no significant shortness of breath at this time. CVS: The patient denies any chest pain and palpitation at this moment. No leg swelling. GASTROINTESTINAL: The patient denies nausea, vomiting, diarrhea, constipation or abdominal pain. GENITOURINARY: The patient denies any dysuria or hematuria. NEUROLOGICAL: The patient denies any headache or dizziness. SKIN: The patient has darkening of the skin of the right upper extremity even prior to his presentation. PHYSICAL EXAMINATION: CURRENT VITAL SIGNS: Shows temperature is 99 degrees Fahrenheit, pulse is 82, respirations 18, blood pressure 123/80 and oxygen saturation 97%. GENERAL: The patient is comfortable lying in the bed, not in acute distress. HEENT: Head is normocephalic and atraumatic. Oral cavity is moist, pink tongue. NECK: Supple. No JVD. No carotid bruit. Trachea in the midline. CHEST: vesicular breath sounds and occasional crackles present. CARDIOVASCULAR: S1 and S2 within normal limits. Regular rhythm. No murmur and no gallop. ABDOMEN: Soft, nontender and nondistended. Bowel sounds present. EXTREMITIES: No cyanosis, no clubbing and no edema. NEUROLOGIC: Alert, awake and oriented x 3. No focal deficits. SKIN: The patient has ecchymosis in the right upper extremity mainly. LABORATORY DATA: Lab wilcox current lab shows WBC 13,200, hemoglobin 10.5, hematocrit 31.1, platelets are 190,000, and neutrophils are 89%. Sodium is 138, potassium 4, chloride 104, bicarbonate is 33, BUN is 52, creatinine 1.7 and glucose is 144. Troponin is 18.67. BNP is 3280. Urinalysis shows negative nitrite, negative leuk esterase, 1+ bacteria and wbc's 0-2. A sputum culture grew Proteus mirabilis and MRSA. Chest x-ray shows no change in pulmonary status. The patient has chronic bilateral infiltrate with right apical wall thickening. The right upper lobe cavitary lesion not well visualized on the chest x-ray. CT scan of the chest on 10/02/2016, showed extensive emphysematous lung changes with area of cavitary lesion on the right apex measuring 3.8-2.7 cm. It may represent a necrotic mass or possible necrotic tissue within the large right apical lesion. Finding may have due to previous infection process, neoplastic process considered less likely. Tuberculosis may be considered in the right setting. A distal extensive right lower lobe infiltrate consolidated changes and additional, mild left basal consolidated changes and passive atelectasis. Bilateral pleural effusion scarring is seen throughout the lung. In the right lung with an area of volume loss, right apical pleural capping, scattered nodules all the lung, the largest within the superior aspect of right lower lobe approximately measuring 9 mm. Findings may be due to infectious inflammatory less likely neoplastic process, followup surveillance in 3-4 months is recommended, left renal atrophy. IMPRESSION: 1. Pneumonia, mainly right lower lobe, may have aspiration was other etiology. May have community acquired pneumonia versus atypical pneumonia. 2. Right upper lobe cavitary lesion, exact etiology is not known. As per the protocol, we will check AFB, PCR and coccidial serology. Also, check TB Gold QuantiFERON. 3. Sepsis, leukocytosis, suspect sepsis. 4. Chronic obstructive pulmonary disease. 5. Coronary artery disease and myocardial infarction, on heparin drip. 6. Peripheral vascular disease. 7. History of congestive heart failure. RECOMMENDATIONS: We will continue same antibiotics.. Check sputum AFB x 3, TB-Gold QuantiFERON and cocci serology. Thank you, Dr. Paulino Benson for involving me in taking care of this patient. JOB# [id number] AILYN
[2016-10-07 10:08] LABS: BAND NEUTROPHILE 2 % (0-10); NEUTROPHILS 88 % (40-80); TOTAL CELLS COUNTED 100
[2016-10-07 10:09] LABS: ANISOCYTOSIS 1+; PLATELET ESTIMATE ADEQUATE (NORMAL); PLATELET MORPHOLOGY NORMAL (NORMAL)
[2016-10-07 10:13] LABS: BE(B) 7.6 mEq/L (-3.0-3.0); HCO3 30.7 mEq/L (20.0-26.0); pH 7.43 (7.35-7.45)
[2016-10-07 10:14] LABS: ALLEN TEST pos; CRITICAL VALUES REPORTED BY RN; FIO2 50
[2016-10-07 11:10] LABS: URINE COLOR YELLOW
[2016-10-07 11:11] LABS: URINE BACTERIA OCCASIONAL /hpf (NONE SEEN); URINE BILIRUBIN NEGATIVE (NEGATIVE); URINE BLOOD NEGATIVE (NEGATIVE); URINE EPITHELIAL CELLS OCCASIONAL /lpf (FEW); URINE FINE GRANULAR CAST 0-2 /lpf (NONE SEEN); URINE GLUCOSE (UA) NEGATIVE (NEGATIVE); URINE KETONE NEGATIVE (NEGATIVE); URINE PROTEIN 30 mg/dL (NEGATIVE); URINE RBC NONE SEEN /hpf (0-5); URINE UROBILINOGEN 0.2 E.U./dL (0.2 - 1.0); URINE WBC 0-2 /hpf (0-5)
[2016-10-07 11:12] LABS: URINE SPERM FEW /hpf (NONE SEEN)
--- NOTE | 2016-10-07 12:37 | Diagnostic Imaging Report ---
CHEST X-RAY: AP view INDICATION: Shortness of breath COMPARISON: Chest x-ray 10/07/[address] chest 10/02/2016 FINDINGS: Congestive changes are seen with right effusion and right apical pleural capping. Cardiomegaly is noted. IMPRESSION: Congestive changes with right effusion extending to the right apical region. There is probable superimposed right lung infiltrates/pneumonia. Please also refer to CT of the chest on 10/02/2016 for further details.
--- NOTE | 2016-10-07 13:41 | General Progress Note ---
Subjective - Review of Systems Service Date: 10/07/16 Subjective: more stuporous today, on BIPAP Objective - Results Result Diagrams: 10/07/16 04:39 10/07/16 04:39 Recent Labs: Laboratory Last Values WBC 16.7 Th/cmm (4.8-10.8) H D 10/07/16 04:39 RBC 3.28 Mil/cmm (3.80-5.80) L 10/07/16 04:39 Hgb 10.4 gm/dL (12.6-17.4) L 10/07/16 04:39 Hct 30.8 % (39.0-49.0) L 10/07/16 04:39 MCV 93.8 fl (80-99) 10/07/16 04:39 MCH 31.8 pg (27.0-31.0) H 10/07/16 04:39 MCHC Differential 33.9 pg (28.0-36.0) 10/07/16 04:39 RDW 16.8 % (11.5-20.0) 10/07/16 04:39 Plt Count 192 Th/cmm (150-400) 10/07/16 04:39 MPV 8.0 fl 10/07/16 04:39 Neutrophils % 85.2 % (40.0-80.0) H 10/03/16 06:36 Band Neutrophils % 2 % (0-10) 10/07/16 04:39 Lymphocytes % 11.6 % (20.0-50.0) L 10/03/16 06:36 Monocytes % 2.6 % (2.0-10.0) 10/03/16 06:36 Eosinophils % 0.2 % (0.0-5.0) 10/03/16 06:36 Basophils % 0.4 % (0.0-2.0) 10/03/16 06:36 Neutrophils (Manual) 88 % (40-80) H 10/07/16 04:39 Lymphocytes 5 % (20-50) L 10/07/16 04:39 Monocytes 5 % (2-10) 10/07/16 04:39 Eosinophils 1 % (0-5) 10/02/16 12:30 Platelet Estimate ADEQUATE (NORMAL) 10/07/16 04:39 Platelet Morphology NORMAL (NORMAL) 10/07/16 04:39 Anisocytosis 1+ 10/07/16 04:39 RBC Morph Micro Appear ABNORMAL (NORMAL) 10/07/16 04:39 Eos Smear Source URINE 10/04/16 14:52 Eos Smear Total Cells NONE SEEN (NONE SEEN) 10/04/16 14:52 PT 10.2 SECONDS (9.5-11.5) 10/04/16 02:03 INR 0.98 (0.5-1.4) 10/04/16 02:03 PTT (Actin FS) 57.0 SECONDS (26.0-38.0) H 10/06/16 07:55 Specimen Source arterial 10/07/16 08:50 Sample Site rr 10/07/16 08:50 pH 7.43 (7.35-7.45) 10/07/16 08:50 pCO2 50.0 mmHg (35.0-45.0) H 10/07/16 08:50 pO2 54.0 mmHg (80.0-100.0) L 10/07/16 08:50 HCO3 30.7 mEq/L (20.0-26.0) H 10/07/16 08:50 Base Excess 7.6 mEq/L (-3.0-3.0) H 10/07/16 08:50 O2 Saturation 89.0 % (92.0-100.0) L 10/07/16 08:50 Simon Test pos 10/07/16 08:50 Vent Rate na 10/07/16 08:50 Inspired O2 50 10/07/16 08:50 Tidal Volume na 10/07/16 08:50 PEEP na 10/07/16 08:50 Pressure (ins/psv/peep) na 10/07/16 08:50 Critical Value RN 10/07/16 08:50 Sodium 139 mEq/L (136-145) 10/07/16 04:39 Potassium 4.0 mEq/L (3.5-5.1) 10/07/16 04:39 Chloride 102 mEq/L (98-107) 10/07/16 04:39 Carbon Dioxide 33.7 mEq/L (21.0-31.0) H 10/07/16 04:39 Anion Gap 7.3 (7.0-16.0) 10/07/16 04:39 BUN 50 mg/dL (7-25) H 10/07/16 04:39 Creatinine 1.5 mg/dL (0.7-1.3) H 10/07/16 04:39 Est GFR ( Amer) TNP 10/07/16 04:39 Est GFR (Non-Af Amer) TNP 10/07/16 04:39 BUN/Creatinine Ratio 33.3 10/07/16 04:39 Glucose 143 mg/dL (70-105) H 10/07/16 04:39 Whole Bld Lactic Acid 0.79 mmol/L (0.60-1.99) 10/02/16 14:50 Uric Acid 8.5 mg/dL (4.4-7.6) H 10/05/16 04:32 Calcium 9.3 mg/dL (8.6-10.3) 10/07/16 04:39 Phosphorus 4.7 mg/dL (2.5-5.0) 10/05/16 04:32 Magnesium 2.4 mg/dL (1.9-2.7) 10/05/16 04:32 Total Bilirubin 0.5 mg/dL (0.3-1.0) 10/07/16 04:39 AST 13 U/L (13-39) 10/07/16 04:39 ALT 22 U/L (7-52) 10/07/16 04:39 Alkaline Phosphatase 37 U/L (34-104) 10/07/16 04:39 Ammonia 34 umol/L (16-53) 10/05/16 04:32 Troponin I 18.67 ng/mL (0.01-0.05) H* D 10/06/16 07:55 B-Natriuretic Peptide 3100.0 pg/mL (5.0-100.0) H 10/07/16 04:39 Total Protein 6.6 gm/dL (6.0-8.3) 10/07/16 04:39 Albumin 3.1 gm/dL (4.2-5.5) L 10/07/16 04:39 Globulin 3.5 gm/dL 10/07/16 04:39 Albumin/Globulin Ratio 0.9 (1.0-1.8) L 10/07/16 04:39 Triglycerides 122 mg/dL (<150) 10/04/16 04:32 Cholesterol 132 mg/dL (<200) 10/04/16 04:32 LDL Cholesterol Direct 83 mg/dL (75-193) 10/04/16 04:32 HDL Cholesterol 33 mg/dL (23-92) 10/04/16 04:32 Free T4 1.14 ng/dL (0.82-1.77) 10/04/16 04:32 Free T3 1.4 pg/mL (2.0-4.4) L 10/04/16 04:32 TSH 1.79 uIU/ml (0.34-5.60) 10/04/16 04:32 Urine Source CLEAN C 10/07/16 09:30 Urine Color YELLOW 10/07/16 09:30 Urine Clarity SL. CLOUDY (CLEAR) 10/07/16 09:30 Urine pH 6.0 10/07/16 09:30 Ur Specific [place] (1.005-1.030) 10/07/16 09:30 Urine Protein 30 mg/dL (NEGATIVE) H 10/07/16 09:30 Urine Glucose (UA) NEGATIVE mg/dL (NEGATIVE) 10/07/16 09:30 Urine Ketones NEGATIVE mg/dL (NEGATIVE) 10/07/16 09:30 Urine Blood NEGATIVE (NEGATIVE) 10/07/16 09:30 Urine Nitrate NEGATIVE (NEGATIVE) 10/07/16 09:30 Urine Bilirubin NEGATIVE (NEGATIVE) 10/07/16 09:30 Urine Urobilinogen 0.2 E.U./dL (0.2 - 1.0) 10/07/16 09:30 Ur Leukocyte Esterase NEGATIVE (NEGATIVE) 10/07/16 09:30 Urine RBC NONE SEEN /hpf (0-5) 10/07/16 09:30 Urine WBC 0-2 /hpf (0-5) 10/07/16 09:30 Ur Epithelial Cells OCCASIONAL /lpf (FEW) 10/07/16 09:30 Amorphous Sediment MODERATE URATES (NONE SEEN) 10/03/16 04:10 Urine Bacteria OCCASIONAL /hpf (NONE SEEN) 10/07/16 09:30 Fine Granular Casts 0-2 /lpf (NONE SEEN) H 10/07/16 09:30 Urine Sperm FEW /hpf (NONE SEEN) 10/07/16 09:30 U Random Total Protein 43.0 mg/dL 10/06/16 05:30 Ur Random Sodium 30 mmol/L 10/04/16 14:52 Urine Collection Time 24 hours 10/06/16 05:30 Urine Total Volume 1300 ml 10/06/16 05:30 Urine Creatinine 113.2 mg/dl (Not Estab.) 10/04/16 14:52 Urine Microalbumin 84.6 ug/mL (Not Estab.) 10/04/16 14:52 Microalb/Creat Ratio 74.7 mg/g creat (0.0-30.0) H 10/04/16 14:52 U Tot Protein 24h, Calc 559.0 mg/24 hr (0-165) H 10/06/16 05:30 - Physical Exam Vitals and I&O: Vital Signs Temp 97.0 F 10/07/16 12:00 Pulse 89 10/07/16 13:00 Resp 16 10/07/16 13:16 BP 111/75 10/07/16 13:00 Pulse Ox 95 10/07/16 13:16 Intake & Output 10/06/16 10/07/16 10/07/16 18:59 06:59 18:59 Intake Total 1000 350 479 Output Total 1300 250 Balance 1000 -950 229 Intake: Intake, IV Amount 1000 229 Heparin 25,000 Units In 229 D5W 25,000 units In 250 ml @ Titrate IV TITR PRN Rx#:[id number] Sodium Chloride 0.9% 1, 1000 000 ml @ 40 mls/hr IV . Q24H [facility] Rx#:[id number] Oral 350 250 Output: Urine 1300 250 Active Medications: Current Medications Acetaminophen (Tylenol) 650 mg PO Q4HR PRN PRN Reason: Fever > 101 Stop: 12/01/16 15:05 Acetaminophen/Hydrocodone Bitart ([place] 10 Mg/325 Mg) 1 tab PO Q4H PRN PRN Reason: pain Stop: 12/01/16 15:05 Last Admin: 10/07/16 08:36 Dose: 1 tab Albuterol Sulfate (Albuterol 2.5mg/3ml Neb Ud) 2.5 mg HHN Q2HR PRN PRN Reason: Wheezing Stop: 12/01/16 15:05 Last Admin: 10/03/16 14:35 Dose: 2.5 mg Albuterol Sulfate (Vospire Er) 4 mg PO BID GAYLE Stop: 12/01/16 16:59 Last Admin: 10/07/16 08:36 Dose: 4 mg Albuterol/Ipratropium (Duoneb Neb) 3 ml HHN [id number] [facility] Stop: 12/02/16 18:59 Last Admin: 10/07/16 11:18 Dose: 3 ml Aspirin (Aspirin Chewable) 81 mg PO DAILY G[facility]LE Stop: 12/02/16 08:59 Last Admin: 10/07/16 08:36 Dose: 81 mg Atorvastatin Calcium (Lipitor) 10 mg PO DAILY GAYLE PRN Reason: Protocol Stop: 12/03/16 08:59 Last Admin: 10/07/16 08:36 Dose: 10 mg Budesonide (Pulmicort) 1 mg HHN BIDRT [facility] Stop: 12/02/16 18:59 Last Admin: 10/07/16 07:19 Dose: 1 mg Carvedilol (Coreg) 3.125 mg PO DAILY [facility] Stop: 12/02/16 08:59 Last Admin: 10/07/16 09:30 Dose: Not Given Furosemide (Lasix) 40 mg IVP DAILY [facility] Stop: 12/04/16 16:14 Last Admin: 10/07/16 08:38 Dose: 40 mg Ceftriaxone Sodium 1 gm/ (Dextrose) 50 mls @ 100 mls/hr IV Q24H [facility] Stop: 12/02/16 15:29 Last Admin: 10/06/16 15:14 Dose: 100 mls/hr Heparin Sodium/Dextrose (Heparin Drip) 25,000 units in 250 mls @ 0 mls/hr IV TITR PRN; Protocol; Titrate PRN Reason: PROTOCOL Stop: 12/03/16 02:07 Last Admin: 10/07/16 08:35 Dose: 12 mls/hr Sodium Chloride (Nacl 0.9%) 1,000 mls @ 40 mls/hr IV .Q24H [facility] Stop: 12/03/16 13:38 Last Admin: 10/06/16 17:34 Dose: 40 mls/hr Vancomycin HCl 1.25 gm/ Sodium (Chloride) 250 mls @ 165 mls/hr IV Q24H [facility] Stop: 12/05/16 13:59 Last Admin: 10/06/16 15:15 Dose: 165 mls/hr Ipratropium [place] (Atrovent Neb 0.5mg/2.5ml) 0.5 mg HHN Q2HR PRN PRN Reason: Wheezing Stop: 12/01/16 15:05 Last Admin: 10/03/16 14:35 Dose: 0.5 mg Lactobacillus Rhamnosus (Culturelle) 1 each PO DAILY [facility] Stop: 12/04/16 08:59 Last Admin: 10/07/16 08:36 Dose: 1 each Lactulose (Cephulac) 30 gm PO BID [facility] Stop: 12/04/16 16:59 Last Admin: 10/07/16 08:38 Dose: 30 gm Lisinopril (Zestril) 5 mg PO DAILY [facility] Stop: 12/03/16 08:59 Last Admin: 10/07/16 09:30 Dose: Not Given Lorazepam (Ativan) 0.5 mg PO BID PRN; Protocol PRN Reason: Anxiety Stop: 12/01/16 15:05 Last Admin: 10/06/16 17:33 Dose: 0.5 mg Lorazepam (Ativan) 1 mg IVP Q4HR PRN; Protocol PRN Reason: Agitation Stop: 12/02/16 18:57 Last Admin: 10/03/16 21:56 Dose: 1 mg Methylprednisolone Sodium Succinate (Solu-Medrol) 40 mg IV Q4HR [facility] Stop: 12/02/16 15:59 Last Admin: 10/07/16 11:33 Dose: 40 mg Mirtazapine (Remeron) 15 mg PO HS GAYLE PRN Reason: Protocol Stop: 12/01/16 20:59 Last Admin: 10/06/16 20:47 Dose: 15 mg Miscellaneous (Vte Chemical Prophylaxis Screen/ Admission) 1 ea PRN PRN PRN Reason: PROTOCOL Stop: 12/01/16 16:51 Miscellaneous (Heparin Drip Per Pharmacy) 1 ea MC PRN GAYLE PRN Reason: Protocol Stop: 12/03/16 01:59 Miscellaneous (Probiotic Screen) 1 ea PRN PRN PRN Reason: PROTOCOL Stop: 12/04/16 08:41 Miscellaneous (Vancomycin Iv Per Pharmacy) 1 ea MC PRN [facility] Stop: 12/05/16 12:14 Mupirocin (Bactroban Oint) 1 appl TP BID GAYLE Stop: 12/02/16 16:59 Last Admin: 10/07/16 08:38 Dose: 1 appl Nitroglycerin (Nitrostat) 0.4 mg SL Q5MIN PRN PRN Reason: Chest Pain Stop: 12/02/16 06:44 Last Admin: 10/03/16 10:31 Dose: 0.4 mg Pantoprazole Sodium (Protonix) 40 mg PO DAILY [facility] Stop: 12/02/16 07:29 Last Admin: 10/07/16 08:36 Dose: 40 mg Senna (Senna) 8.6 mg PO BID G[facility]LE Stop: 12/01/16 16:59 Last Admin: 10/07/16 08:36 Dose: 8.6 mg General: Other (stuporous) HEENT: Atraumatic, Mucous membr. moist/pink Neck: Supple, +2 carotid pulse wo bruit Cardiovascular: Regular rate, Normal S1, Normal S2 Lungs: Other (rhonchi, exp wheezes) Abdomen: Bowel sounds, Soft Extremities: no Edema Neurological: Sensation intact Skin: no Rash Psych/Mental Status: Other (stuporous) - Procedures Procedures: Procedures Procedure Code Date ASSISTANCE WITH RESPIRATORY VENTILATION, 24-96 HRS, CPAP [id number] 10/02/16 POS AIRWAY PRESSURE CPAP 12318 10/02/16 Assessment/Plan - Problem List Patient Problems: All Active Problems SOB (Acute ~10/02/16) - Assessment Assessment: NARESH exacerbation of COPD on BIPAP right HAP cavity/mass lesion right apex CAD NSTE IA elevated BNP possibly pulm htn, structural heart ds., ? CHF PAD dyslipidemia severe malnutrition - Plan Plan: Lab - Result Diagrams 10/05/16 04:32 10/05/16 04:32 Current Medications Acetaminophen (Tylenol) 650 mg PO Q4HR PRN PRN Reason: Fever > 101 Stop: 12/01/16 15:05 Acetaminophen/Hydrocodone Bitart ([place] 10 Mg/325 Mg) 1 tab PO Q4H PRN PRN Reason: pain Stop: 12/01/16 15:05 Last Admin: 10/05/16 10:18 Dose: 1 tab Albuterol Sulfate (Albuterol 2.5mg/3ml Neb Ud) 2.5 mg HHN Q2HR PRN PRN Reason: Wheezing Stop: 12/01/16 15:05 Last Admin: 10/03/16 14:35 Dose: 2.5 mg Albuterol Sulfate (Vospire Er) 4 mg PO BID GAYLE Stop: 12/01/16 16:59 Last Admin: 10/05/16 14:16 Dose: 4 mg Albuterol/Ipratropium (Duoneb Neb) 3 ml HHN [id number] [facility] Stop: 12/02/16 18:59 Last Admin: 10/05/16 11:17 Dose: 3 ml Aspirin (Aspirin Chewable) 81 mg PO DAILY [facility] Stop: 12/02/16 08:59 Last Admin: 10/05/16 08:12 Dose: 81 mg Atorvastatin Calcium (Lipitor) 10 mg PO DAILY [facility] PRN Reason: Protocol Stop: 12/03/16 08:59 Last Admin: 10/05/16 08:12 Dose: 10 mg Budesonide (Pulmicort) 1 mg HHN BIDRT [facility] Stop: 12/02/16 18:59 Last Admin: 10/05/16 07:04 Dose: 1 mg Carvedilol (Coreg) 3.125 mg PO DAILY [facility] Stop: 12/02/16 08:59 Last Admin: 10/05/16 08:11 Dose: 3.125 mg Furosemide (Lasix) 20 mg PO DAILY [facility] Stop: 12/04/16 08:59 Last Admin: 10/05/16 09:00 Dose: 20 mg Ceftriaxone Sodium 1 gm/ (Dextrose) 50 mls @ 100 mls/hr IV Q24H [facility] Stop: 12/02/16 15:29 Last Infusion: 10/04/16 17:45 Dose: Infused Azithromycin 500 mg/ Sodium (Chloride) 250 mls @ 250 mls/hr IV Q24HR [facility] Stop: 12/02/16 15:29 Last Admin: 10/04/16 18:07 Dose: 250 mls/hr Heparin Sodium/Dextrose (Heparin Drip) 25,000 units in 250 mls @ 0 mls/hr IV TITR PRN; Protocol; Titrate PRN Reason: PROTOCOL Stop: 12/03/16 02:07 Last Admin: 10/04/16 23:01 Dose: 12 mls/hr Sodium Chloride (Nacl 0.9%) 1,000 mls @ 40 mls/hr IV .Q24H [facility] Stop: 12/03/16 13:38 Last Admin: 10/04/16 16:45 Dose: 40 mls/hr Ipratropium [place] (Atrovent Neb 0.5mg/2.5ml) 0.5 mg HHN Q2HR PRN PRN Reason: Wheezing Stop: 12/01/16 15:05 Last Admin: 10/03/16 14:35 Dose: 0.5 mg Lactobacillus Rhamnosus (Culturelle) 1 each PO DAILY [facility] Stop: 12/04/16 08:59 Last Admin: 10/05/16 11:37 Dose: 1 each Lactulose (Cephulac) 30 gm PO BID GAYLE Stop: 12/04/16 16:59 Lisinopril (Zestril) 5 mg PO DAILY [facility] Stop: 12/03/16 08:59 Last Admin: 10/05/16 08:11 Dose: 5 mg Lorazepam (Ativan) 0.5 mg PO BID PRN; Protocol PRN Reason: Anxiety Stop: 12/01/16 15:05 Last Admin: 10/05/16 08:12 Dose: 0.5 mg Lorazepam (Ativan) 1 mg IVP Q4HR PRN; Protocol PRN Reason: Agitation Stop: 12/02/16 18:57 Last Admin: 10/03/16 21:56 Dose: 1 mg Methylprednisolone Sodium Succinate (Solu-Medrol) 40 mg IV Q4HR [facility] Stop: 12/02/16 15:59 Last Admin: 10/05/16 11:37 Dose: 40 mg Mirtazapine (Remeron) 15 mg PO HS GAYLE PRN Reason: Protocol Stop: 12/01/16 20:59 Last Admin: 10/04/16 21:53 Dose: 15 mg Miscellaneous (Vte Chemical Prophylaxis Screen/ Admission) 1 ea PRN PRN PRN Reason: PROTOCOL Stop: 12/01/16 16:51 Miscellaneous (Heparin Drip Per Pharmacy) 1 [facility] PRN GAYLE PRN Reason: Protocol Stop: 12/03/16 01:59 Miscellaneous (Probiotic Screen) 1 ea PRN PRN PRN Reason: PROTOCOL Stop: 12/04/16 08:41 Mupirocin (Bactroban Oint) 1 appl TP BID GAYLE Stop: 12/02/16 16:59 Last Admin: 10/05/16 09:00 Dose: 1 appl Nitroglycerin (Nitrostat) 0.4 mg SL Q5MIN PRN PRN Reason: Chest Pain Stop: 12/02/16 06:44 Last Admin: 10/03/16 10:31 Dose: 0.4 mg Pantoprazole Sodium (Protonix) 40 mg PO DAILY [facility] Stop: 12/02/16 07:29 Last Admin: 10/05/16 11:36 Dose: 40 mg Senna (Senna) 8.6 mg PO BID [facility] Stop: 12/01/16 16:59 Last Admin: 10/05/16 09:00 Dose: 8.6 mg kidney fnc basically the same w/ cr. 0f 1.5 FE Na 0.28% suggestive of pre renal component ECHO revealed LVH, CM, EJF 20%, RVSP? Lasix increased & ivf dc'ed f/u electrolytes, cbc cxr still no change, stable
[2016-10-07] MEDS: Sodium Chloride 0.9% 1,000 ML IV SCH (14:29)
[2016-10-08] MEDS: methylPREDNISolone SS 40 mg Vial IV SCH ×6 (00:19→20:21)
--- NOTE | 2016-10-08 03:28 | Progress Notes ---
PULMONARY PROGRESS NOTE PROBLEM LIST: 1. Acute on chronic respiratory failure. 2. Extensive COPD with right lower lobe pneumonia. 3. 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 4. Significant cachexia as well as recurrent constipation. SYMPTOMS: Nil. No coughing. Breathing is okay, currently on a BiPAP, no respiratory distress. PHYSICAL EXAMINATION: VITAL SIGNS: Temperature is 97.5, blood pressure 115/75, currently saturating okay on BiPAP. NECK: Veins not visualized. CHEST: Shows diminished air entry with occasional rhonchi. HEART: Regular. ABDOMEN: Soft and nontender. LABORATORY DATA: The patient's ABG still margin with pO2 of 54 on 50% of Venturi mask. 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 PLANS AND SUGGESTIONS: I have discussed with ID. I have discussed with all nursing staff. We will continue current treatment and see how he does in the next few days and go from there. JOB# [id number]
[2016-10-08 05:33] LABS: HEMATOCRIT 29.5 % (39.0-49.0); MEAN CELL VOLUME 95.1 fl (80-99); MEAN CORPUSCULAR HEMOGLOBIN 32.2 pg (27.0-31.0); MEAN CORPUSCULAR HGB CONC 33.9 pg (28.0-36.0); MEAN PLATELET VOLUME 7.8 fl; PLATELET COUNT 182 Th/cmm (150-400); RED CELL DISTRIBUTION WIDTH 17.3 % (11.5-20.0)
[2016-10-08 05:53] LABS: ALB/GLOB RATIO 0.9 (1.0-1.8); ALKALINE PHOSPHATASE 37 U/L (34-104); ANION GAP 7.5 (7.0-16.0); BILIRUBIN,TOTAL 0.6 mg/dL (0.3-1.0); BUN - UREA NITROGEN 49 mg/dL (7-25); CALCIUM SERUM 9.1 mg/dL (8.6-10.3); CARBON DIOXIDE 35.9 mEq/L (21.0-31.0); CHLORIDE 101 mEq/L (98-107); CREATININE - SERUM 1.4 mg/dL (0.7-1.3); GLUCOSE 162 mg/dL (70-105); POTASSIUM SERUM 4.4 mEq/L (3.5-5.1); SGOT 9 U/L (13-39); SGPT/ALT 15 U/L (7-52); SODIUM SERUM 140 mEq/L (136-145)
[2016-10-08 06:10] LABS: WHITE BLOOD COUNT 17.2 Th/cmm (4.8-10.8)
[2016-10-08] MEDS: Albuterol/Ipratropium Neb 3 ML AERS HHN SCH ×4 (07:05→19:56)
[2016-10-08] MEDS: Budesonide 0.5 Mg/2 mL Ud HHN SCH ×2 (07:07→20:08)
[2016-10-08] MEDS ORDERED: D5-0.9%NS 1,000 ML IV SCH (08:30)
[2016-10-08] MEDS: Aspirin 81mg Chewable Tab PO SCH ×2 (08:32→08:56)
[2016-10-08] MEDS: Lactulose 10 Gm/15 mL 30mL UDC PO SCH ×2 (08:32→16:51)
[2016-10-08] MEDS: Atorvastatin Calcium 10 MG TAB PO SCH ×2 (08:32→08:55)
[2016-10-08] MEDS: Lactobacillus Rhamnosus 10 Billion CFU Capsule PO SCH (08:32)
[2016-10-08] MEDS: Pantoprazole 40 mg EC Tab PO SCH ×2 (08:33→08:55)
[2016-10-08 08:47] LABS: BAND NEUTROPHILE 2 % (0-10); NEUTROPHILS 91 % (40-80); PLATELET ESTIMATE ADEQUATE (NORMAL); PLATELET MORPHOLOGY NORMAL (NORMAL); TOTAL CELLS COUNTED 100
[2016-10-08] MEDS: Hydrocodone/APAP 10 mg/325 mg Tab PO PRN ×3 (08:56→21:28)
[2016-10-08] MEDS: Heparin 25,000 Units In D5W 25,000 UNITS/250 ML BAG IV PRN (09:00)
--- NOTE | 2016-10-08 09:17 | Diagnostic Imaging Report ---
CHEST X-RAY: AP view INDICATION: Pneumonia COMPARISON: Chest x-ray 10/07/2016 FINDINGS: Persistent multifocal infiltrates are seen with right effusion and right apical pleural capping. Cardiomegaly is noted with atherosclerosis. Right humeral fracture is partially visualized. IMPRESSION: Persistent multifocal infiltrates, right greater than left, with right effusion and right apical pleural capping. Right humeral fracture as seen on prior exams.
[2016-10-08 09:26] LABS: BE(B) 11.1 mEq/L (-3.0-3.0); HCO3 33.4 mEq/L (20.0-26.0); pH 7.47 (7.35-7.45)
[2016-10-08 09:27] LABS: ABG SOURCE Arterial; ALLEN TEST Positive; CRITICAL VALUES REPORTED BY ACELIS; FIO2 50
[2016-10-08] MEDS: Albuterol Sulfate ER 4 mg Tab PO SCH ×2 (10:00→16:54)
--- NOTE | 2016-10-08 14:41 | Infectious Disease Prog Note ---
Infectious Disease Subjective - Review of Systems Service Date: 10/08/16 Subjective: patient had hemoptysis, Infectious Disease Objective - Results Result Diagrams: 10/08/16 05:04 10/08/16 05:04 Recent Labs: Laboratory Last Values WBC 17.2 Th/cmm (4.8-10.8) H 10/08/16 05:04 RBC 3.10 Mil/cmm (3.80-5.80) L 10/08/16 05:04 Hgb 10.0 gm/dL (12.6-17.4) L 10/08/16 05:04 Hct 29.5 % (39.0-49.0) L 10/08/16 05:04 MCV 95.1 fl (80-99) 10/08/16 05:04 MCH 32.2 pg (27.0-31.0) H 10/08/16 05:04 MCHC Differential 33.9 pg (28.0-36.0) 10/08/16 05:04 RDW 17.3 % (11.5-20.0) 10/08/16 05:04 Plt Count 182 Th/cmm (150-400) 10/08/16 05:04 MPV 7.8 fl 10/08/16 05:04 Neutrophils % 85.2 % (40.0-80.0) H 10/03/16 06:36 Band Neutrophils % 2 % (0-10) 10/08/16 05:04 Lymphocytes % 11.6 % (20.0-50.0) L 10/03/16 06:36 Monocytes % 2.6 % (2.0-10.0) 10/03/16 06:36 Eosinophils % 0.2 % (0.0-5.0) 10/03/16 06:36 Basophils % 0.4 % (0.0-2.0) 10/03/16 06:36 Neutrophils (Manual) 91 % (40-80) H 10/08/16 05:04 Lymphocytes 5 % (20-50) L 10/08/16 05:04 Monocytes 2 % (2-10) 10/08/16 05:04 Eosinophils 1 % (0-5) 10/02/16 12:30 Platelet Estimate ADEQUATE (NORMAL) 10/08/16 05:04 Platelet Morphology NORMAL (NORMAL) 10/08/16 05:04 Anisocytosis 1+ 10/07/16 04:39 RBC Morph Micro Appear NORMAL (NORMAL) 10/08/16 05:04 Eos Smear Source URINE 10/04/16 14:52 Eos Smear Total Cells NONE SEEN (NONE SEEN) 10/04/16 14:52 PT 10.2 SECONDS (9.5-11.5) 10/04/16 02:03 INR 0.98 (0.5-1.4) 10/04/16 02:03 PTT (Actin FS) 59.7 SECONDS (26.0-38.0) H 10/08/16 05:04 Specimen Source Arterial 10/08/16 09:05 Sample Site Right Radial 10/08/16 09:05 pH 7.47 (7.35-7.45) H 10/08/16 09:05 pCO2 50.0 mmHg (35.0-45.0) H 10/08/16 09:05 pO2 55.0 mmHg (80.0-100.0) L 10/08/16 09:05 HCO3 33.4 mEq/L (20.0-26.0) H 10/08/16 09:05 Base Excess 11.1 mEq/L (-3.0-3.0) H 10/08/16 09:05 O2 Saturation 90.0 % (92.0-100.0) L 10/08/16 09:05 Simon Test Positive 10/08/16 09:05 Vent Rate NA 10/08/16 09:05 Inspired O2 50 10/08/16 09:05 Tidal Volume NA 10/08/16 09:05 PEEP NA 10/08/16 09:05 Pressure (ins/psv/peep) NA 10/08/16 09:05 Critical Value ACELIS 10/08/16 09:05 Sodium 140 mEq/L (136-145) 10/08/16 05:04 Potassium 4.4 mEq/L (3.5-5.1) 10/08/16 05:04 Chloride 101 mEq/L (98-107) 10/08/16 05:04 Carbon Dioxide 35.9 mEq/L (21.0-31.0) H 10/08/16 05:04 Anion Gap 7.5 (7.0-16.0) 10/08/16 05:04 BUN 49 mg/dL (7-25) H 10/08/16 05:04 Creatinine 1.4 mg/dL (0.7-1.3) H 10/08/16 05:04 Est GFR ( Amer) TNP 10/08/16 05:04 Est GFR (Non-Af Amer) TNP 10/08/16 05:04 BUN/Creatinine Ratio 35.0 10/08/16 05:04 Glucose 162 mg/dL (70-105) H 10/08/16 05:04 Whole Bld Lactic Acid 0.79 mmol/L (0.60-1.99) 10/02/16 14:50 Uric Acid 8.5 mg/dL (4.4-7.6) H 10/05/16 04:32 Calcium 9.1 mg/dL (8.6-10.3) 10/08/16 05:04 Phosphorus 4.7 mg/dL (2.5-5.0) 10/05/16 04:32 Magnesium 2.4 mg/dL (1.9-2.7) 10/05/16 04:32 Total Bilirubin 0.6 mg/dL (0.3-1.0) 10/08/16 05:04 AST 9 U/L (13-39) L 10/08/16 05:04 ALT 15 U/L (7-52) 10/08/16 05:04 Alkaline Phosphatase 37 U/L (34-104) 10/08/16 05:04 Ammonia 39 umol/L (16-53) 10/08/16 05:04 Troponin I 8.44 ng/mL (0.01-0.05) H* D 10/08/16 05:04 B-Natriuretic Peptide 3310.0 pg/mL (5.0-100.0) H 10/08/16 05:04 Total Protein 6.3 gm/dL (6.0-8.3) 10/08/16 05:04 Albumin 2.9 gm/dL (4.2-5.5) L 10/08/16 05:04 Globulin 3.4 gm/dL 10/08/16 05:04 Albumin/Globulin Ratio 0.9 (1.0-1.8) L 10/08/16 05:04 Triglycerides 122 mg/dL (<150) 10/04/16 04:32 Cholesterol 132 mg/dL (<200) 10/04/16 04:32 LDL Cholesterol Direct 83 mg/dL (75-193) 10/04/16 04:32 HDL Cholesterol 33 mg/dL (23-92) 10/04/16 04:32 Free T4 1.14 ng/dL (0.82-1.77) 10/04/16 04:32 Free T3 1.4 pg/mL (2.0-4.4) L 10/04/16 04:32 TSH 1.79 uIU/ml (0.34-5.60) 10/04/16 04:32 Urine Source CLEAN C 10/07/16 09:30 Urine Color YELLOW 10/07/16 09:30 Urine Clarity SL. CLOUDY (CLEAR) 10/07/16 09:30 Urine pH 6.0 10/07/16 09:30 Ur Specific [place] (1.005-1.030) 10/07/16 09:30 Urine Protein 30 mg/dL (NEGATIVE) H 10/07/16 09:30 Urine Glucose (UA) NEGATIVE mg/dL (NEGATIVE) 10/07/16 09:30 Urine Ketones NEGATIVE mg/dL (NEGATIVE) 10/07/16 09:30 Urine Blood NEGATIVE (NEGATIVE) 10/07/16 09:30 Urine Nitrate NEGATIVE (NEGATIVE) 10/07/16 09:30 Urine Bilirubin NEGATIVE (NEGATIVE) 10/07/16 09:30 Urine Urobilinogen 0.2 E.U./dL (0.2 - 1.0) 10/07/16 09:30 Ur Leukocyte Esterase NEGATIVE (NEGATIVE) 10/07/16 09:30 Urine RBC NONE SEEN /hpf (0-5) 10/07/16 09:30 Urine WBC 0-2 /hpf (0-5) 10/07/16 09:30 Ur Epithelial Cells OCCASIONAL /lpf (FEW) 10/07/16 09:30 Amorphous Sediment MODERATE URATES (NONE SEEN) 10/03/16 04:10 Urine Bacteria OCCASIONAL /hpf (NONE SEEN) 10/07/16 09:30 Fine Granular Casts 0-2 /lpf (NONE SEEN) H 10/07/16 09:30 Urine Sperm FEW /hpf (NONE SEEN) 10/07/16 09:30 U Random Total Protein 43.0 mg/dL 10/06/16 05:30 Ur Random Sodium 30 mmol/L 10/04/16 14:52 Urine Collection Time 24 hours 10/06/16 05:30 Urine Total Volume 1300 ml 10/06/16 05:30 Urine Creatinine 113.2 mg/dl (Not Estab.) 10/04/16 14:52 Urine Microalbumin 84.6 ug/mL (Not Estab.) 10/04/16 14:52 Microalb/Creat Ratio 74.7 mg/g creat (0.0-30.0) H 10/04/16 14:52 U Tot Protein 24h, Calc 559.0 mg/24 hr (0-165) H 10/06/16 05:30 Vancomycin Trough 14.6 ug/mL (10-20) 10/08/16 13:00 HIV 1&2 Antibody Screen NEGATIVE (NEG) 10/07/16 15:00 - Physical Exam Vitals and I&O: Vital Signs Temp 96.5 F 10/08/16 08:00 Pulse 95 10/08/16 11:50 Resp 18 10/08/16 13:55 BP 117/70 10/08/16 11:00 Pulse Ox 93 10/08/16 13:25 Intake & Output 10/07/16 10/08/16 10/08/16 18:59 06:59 18:59 Intake Total 1765.667 120 Output Total 1050 500 Balance 715.667 -380 Weight (lbs) 75.07 kg 75.977 kg Intake: Intake, IV Amount 1365.667 Heparin 25,000 Units In 229 D5W 25,000 units In 250 ml @ Titrate IV TITR PRN Rx#:[id number] Sodium Chloride 0.9% 1, 836.667 000 ml @ 40 mls/hr IV . Q24H [facility] Rx#:[id number] Vancomycin HCl 1.25 gm In 250 Sodium Chloride 0.9% 250 ml @ 165 mls/hr IV Q24H [facility] Rx#:[id number] cefTRIAXone 1 gm In 50 Dextrose 5% 50 ml @ 100 mls/hr IV Q24H [facility] Rx#: [id number] Oral 400 120 Output: Urine 1050 500 Other: # Voids 3 # Bowel Movements 0 0 Active Medications: Current Medications Acetaminophen (Tylenol) 650 mg PO Q4HR PRN PRN Reason: Fever > 101 Stop: 12/01/16 15:05 Acetaminophen/Hydrocodone Bitart ([place] 10 Mg/325 Mg) 1 tab PO Q4H PRN PRN Reason: pain Stop: 12/01/16 15:05 Last Admin: 10/08/16 08:56 Dose: 1 tab Albuterol Sulfate (Albuterol 2.5mg/3ml Neb Ud) 2.5 mg HHN Q2HR PRN PRN Reason: Wheezing Stop: 12/01/16 15:05 Last Admin: 10/03/16 14:35 Dose: 2.5 mg Albuterol Sulfate (Vospire Er) 4 mg PO BID [facility] Stop: 12/01/16 16:59 Last Admin: 10/08/16 10:00 Dose: Not Given Albuterol/Ipratropium (Duoneb Neb) 3 ml HHN [id number] [facility] Stop: 12/02/16 18:59 Last Admin: 10/08/16 11:50 Dose: 3 ml Aspirin (Aspirin Chewable) 81 mg PO DAILY [facility] Stop: 12/02/16 08:59 Last Admin: 10/08/16 08:56 Dose: 81 mg Atorvastatin Calcium (Lipitor) 10 mg PO DAILY [facility] PRN Reason: Protocol Stop: 12/03/16 08:59 Last Admin: 10/08/16 08:55 Dose: 10 mg Budesonide (Pulmicort) 1 mg HHN BIDRT [facility] Stop: 12/02/16 18:59 Last Admin: 10/08/16 07:07 Dose: 1 mg Carvedilol (Coreg) 3.125 mg PO DAILY [facility] Stop: 12/02/16 08:59 Last Admin: 10/08/16 08:32 Dose: Not Given Furosemide (Lasix) 40 mg IVP DAILY [facility] Stop: 12/04/16 16:14 Last Admin: 10/08/16 09:06 Dose: 40 mg Ceftriaxone Sodium 1 gm/ (Dextrose) 50 mls @ 100 mls/hr IV Q24H [facility] Stop: 12/02/16 15:29 Last Infusion: 10/07/16 17:00 Dose: Infused Heparin Sodium/Dextrose (Heparin Drip) 25,000 units in 250 mls @ 0 mls/hr IV TITR PRN; Protocol; Titrate PRN Reason: PROTOCOL Stop: 12/03/16 02:07 Last Admin: 10/07/16 08:35 Dose: 12 mls/hr Vancomycin HCl 1.25 gm/ Sodium (Chloride) 250 mls @ 165 mls/hr IV Q24H [facility] Stop: 12/05/16 13:59 Last Infusion: 10/07/16 16:00 Dose: Infused Dextrose/Sodium Chloride (D5-0.9%Ns) 1,000 mls @ 50 mls/hr IV .Q20H [facility] Stop: 12/07/16 08:29 Last Admin: 10/08/16 08:31 Dose: 50 mls/hr Ipratropium [place] (Atrovent Neb 0.5mg/2.5ml) 0.5 mg HHN Q2HR PRN PRN Reason: Wheezing Stop: 12/01/16 15:05 Last Admin: 10/03/16 14:35 Dose: 0.5 mg Lactobacillus Rhamnosus (Culturelle) 1 each PO DAILY [facility] Stop: 12/04/16 08:59 Last Admin: 10/08/16 08:32 Dose: Not Given Lactulose (Cephulac) 30 gm PO BID [facility] Stop: 12/04/16 16:59 Last Admin: 10/08/16 08:32 Dose: Not Given Lisinopril (Zestril) 5 mg PO DAILY [facility] Stop: 12/03/16 08:59 Last Admin: 10/08/16 08:32 Dose: Not Given Lorazepam (Ativan) 0.5 mg PO BID PRN; Protocol PRN Reason: Anxiety Stop: 12/01/16 15:05 Last Admin: 10/06/16 17:33 Dose: 0.5 mg Lorazepam (Ativan) 1 mg IVP Q4HR PRN; Protocol PRN Reason: Agitation Stop: 12/02/16 18:57 Last Admin: 10/03/16 21:56 Dose: 1 mg Methylprednisolone Sodium Succinate (Solu-Medrol) 40 mg IV Q4HR [facility] Stop: 12/02/16 15:59 Last Admin: 10/08/16 12:40 Dose: 40 mg Mirtazapine (Remeron) 15 mg PO HS [facility] PRN Reason: Protocol Stop: 12/01/16 20:59 Last Admin: 10/07/16 20:14 Dose: 15 mg Miscellaneous (Vte Chemical Prophylaxis Screen/ Admission) 1 ea MC PRN PRN PRN Reason: PROTOCOL Stop: 12/01/16 16:51 Miscellaneous (Heparin Drip Per Pharmacy) 1 ea PRN [facility] PRN Reason: Protocol Stop: 12/03/16 01:59 Miscellaneous (Probiotic Screen) 1 ea PRN PRN PRN Reason: PROTOCOL Stop: 12/04/16 08:41 Miscellaneous (Vancomycin Iv Per Pharmacy) 1 ea PRN [facility] Stop: 12/05/16 12:14 Mupirocin (Bactroban Oint) 1 appl TP BID [facility] Stop: 12/02/16 16:59 Last Admin: 10/08/16 08:32 Dose: Not Given Nitroglycerin (Nitrostat) 0.4 mg SL Q5MIN PRN PRN Reason: Chest Pain Stop: 12/02/16 06:44 Last Admin: 10/03/16 10:31 Dose: 0.4 mg Pantoprazole Sodium (Protonix) 40 mg PO DAILY [facility] Stop: 12/02/16 07:29 Last Admin: 10/08/16 08:55 Dose: 40 mg Senna (Senna) 8.6 mg PO BID [facility] Stop: 12/01/16 16:59 Last Admin: 10/08/16 08:55 Dose: 8.6 mg General: no acute distress, well developed, well nourished HEENT: atraumatic, normocephalic, PERRLA Neck: supple, no thyromegaly, no lymphadenopathy Cardiovascular: S1S2, regular Lungs: clear to auscultation bilaterally, clear to percussion Abdomen: soft, no tender, no distended Extremities: no cyanosis, no clubbing, no edema Neurological: awake, alert, oriented Skin: intact - Procedures Procedures: Procedures Procedure Code Date ASSISTANCE WITH RESPIRATORY VENTILATION, 24-96 HRS, CPAP [id number] 10/02/16 POS AIRWAY PRESSURE CPAP [id number] 10/02/16 Infectious Disease Assmt/Plan - Problem List Patient Problems: All Active Problems SOB (Acute ~10/02/16) - Assessment Assessment: Impression: 1. RUL cavitary lesion. ( Necrotic debris). 2. Pneumonia. 3. Leukocytosis. Recommendations: Continue same treatment follow the labs. Nutritional Asmnt/Malnutr-PDOC - Dietary Evaluation Malnutrition Findings (Please click <Entered> for more info): Nutritional Asmnt/Malnutrition Start: 10/07/16 15: 35 Text: Status: Complete Freq: Document 10/07/16 15:36 GSUN (Rec: 10/07/16 15:55 GSUN [id number]) Nutritional Asmnt/Malnutrition Patient General Information Diagnosis Progress note: pneumonia, sepsis vs leukocytosis Pertinent Medical Hx/Surgical Hx H&P: CHF, COPD, CAD, [place], muscle weakness, HTN, hyperlipidemia Subjective Information 71 year old male on bipap. Pt was alert and pleasant during visit, mouthed to RD "I can't talk much right now" due to bipap. P stated he has lost weight recently due to physical inactivity. RD observed breakfast tray untouched. Spoek to RN, RN stated pt is not a breakfast person, ate 75% dinner last night. Avg PO intake <30% of meals, not meeting nutritional needs. Current Diet Order/ Nutrition Support Cardiac Pertinent Medications Lipitor, Lasix, Culturelle, Cephulac, Solu-Medrol, Remeron , Vancomycin, Protonix, Senna Pertinent Labs 10/07: BUN 50H, creatinine 1.5H , glucose 143H, BNP 3100H Nutritional Hx/Data Height 1.78 m Height (Calculated Centimeters) 177.8 Current Weight (lbs) 75.07 kg Weight (Calculated Kilograms) 75.1 Weight (Calculated Grams) 35826.5 [place] Body Weight 166lb Weight Status Approriate GI Symptoms Skin Integrity/Comment: Harjit Vazquez. wet primer powder blender: pressure area coccyx Current %PO Negligible < 25% Estimated Nutritional Goals BEE in Kcals: Using Current wt Calories/Kcals/Kg CBW 165.5lb/75kg Kcals Calculated 2250-2625kcal (25-30kcal/kg) Protein: Using Current wt Protein g/kg: CBW Protein Calculated 75-113g (1-1.5g/kg) Fluid: ml 2250-2625ml (1ml/kcal) Nutritional Problem 1. Problem Problem Increased kcal and prot needs related to Etiology hypermetabolic state, pt report recent weight loss aeb Signs/Symptoms: pneumonia, sepsis vs leukocytosis, malnutrition per progress note Intervention/Recommendation Comments 1. Continue with cardiac diet. PO intake is suboptimal since adm. Continue to encourage PO intake and assist with meals. 2. Recommend Novasource Renal TID. 3. Monitor weight. Expected Outcomes/Goals Expected Outcomes/Goals 1. PO intake to meet 100% of estimated nutritional needs.
--- NOTE | 2016-10-08 14:49 | General Progress Note ---
Subjective - Review of Systems Service Date: 10/08/16 Subjective: more awake today, intermittent BIPAP Objective - Results Result Diagrams: 10/08/16 05:04 10/08/16 05:04 Recent Labs: Laboratory Last Values WBC 17.2 Th/cmm (4.8-10.8) H 10/08/16 05:04 RBC 3.10 Mil/cmm (3.80-5.80) L 10/08/16 05:04 Hgb 10.0 gm/dL (12.6-17.4) L 10/08/16 05:04 Hct 29.5 % (39.0-49.0) L 10/08/16 05:04 MCV 95.1 fl (80-99) 10/08/16 05:04 MCH 32.2 pg (27.0-31.0) H 10/08/16 05:04 MCHC Differential 33.9 pg (28.0-36.0) 10/08/16 05:04 RDW 17.3 % (11.5-20.0) 10/08/16 05:04 Plt Count 182 Th/cmm (150-400) 10/08/16 05:04 MPV 7.8 fl 10/08/16 05:04 Neutrophils % 85.2 % (40.0-80.0) H 10/03/16 06:36 Band Neutrophils % 2 % (0-10) 10/08/16 05:04 Lymphocytes % 11.6 % (20.0-50.0) L 10/03/16 06:36 Monocytes % 2.6 % (2.0-10.0) 10/03/16 06:36 Eosinophils % 0.2 % (0.0-5.0) 10/03/16 06:36 Basophils % 0.4 % (0.0-2.0) 10/03/16 06:36 Neutrophils (Manual) 91 % (40-80) H 10/08/16 05:04 Lymphocytes 5 % (20-50) L 10/08/16 05:04 Monocytes 2 % (2-10) 10/08/16 05:04 Eosinophils 1 % (0-5) 10/02/16 12:30 Platelet Estimate ADEQUATE (NORMAL) 10/08/16 05:04 Platelet Morphology NORMAL (NORMAL) 10/08/16 05:04 Anisocytosis 1+ 03/29/17 04:39 RBC Morph Micro Appear NORMAL (NORMAL) 10/08/16 05:04 Eos Smear Source URINE 10/04/16 14:52 Eos Smear Total Cells NONE SEEN (NONE SEEN) 10/04/16 14:52 PT 10.2 SECONDS (9.5-11.5) 10/04/16 02:03 INR 0.98 (0.5-1.4) 10/04/16 02:03 PTT (Actin FS) 59.7 SECONDS (26.0-38.0) H 10/08/16 05:04 Specimen Source Arterial 10/08/16 09:05 Sample Site Right Radial 10/08/16 09:05 pH 7.47 (7.35-7.45) H 10/08/16 09:05 pCO2 50.0 mmHg (35.0-45.0) H 10/08/16 09:05 pO2 55.0 mmHg (80.0-100.0) L 10/08/16 09:05 HCO3 33.4 mEq/L (20.0-26.0) H 10/08/16 09:05 Base Excess 11.1 mEq/L (-3.0-3.0) H 10/08/16 09:05 O2 Saturation 90.0 % (92.0-100.0) L 10/08/16 09:05 Simon Test Positive 10/08/16 09:05 Vent Rate NA 10/08/16 09:05 Inspired O2 50 10/08/16 09:05 Tidal Volume NA 10/08/16 09:05 PEEP NA 10/08/16 09:05 Pressure (ins/psv/peep) NA 10/08/16 09:05 Critical Value ACELIS 10/08/16 09:05 Sodium 140 mEq/L (136-145) 10/08/16 05:04 Potassium 4.4 mEq/L (3.5-5.1) 10/08/16 05:04 Chloride 101 mEq/L (98-107) 10/08/16 05:04 Carbon Dioxide 35.9 mEq/L (21.0-31.0) H 10/08/16 05:04 Anion Gap 7.5 (7.0-16.0) 10/08/16 05:04 BUN 49 mg/dL (7-25) H 10/08/16 05:04 Creatinine 1.4 mg/dL (0.7-1.3) H 10/08/16 05:04 Est GFR ( Amer) TNP 10/08/16 05:04 Est GFR (Non-Af Amer) TNP 10/08/16 05:04 BUN/Creatinine Ratio 35.0 10/08/16 05:04 Glucose 162 mg/dL (70-105) H 10/08/16 05:04 Whole Bld Lactic Acid 0.79 mmol/L (0.60-1.99) 10/02/16 14:50 Uric Acid 8.5 mg/dL (4.4-7.6) H 10/05/16 04:32 Calcium 9.1 mg/dL (8.6-10.3) 10/08/16 05:04 Phosphorus 4.7 mg/dL (2.5-5.0) 10/05/16 04:32 Magnesium 2.4 mg/dL (1.9-2.7) 10/05/16 04:32 Total Bilirubin 0.6 mg/dL (0.3-1.0) 10/08/16 05:04 AST 9 U/L (13-39) L 10/08/16 05:04 ALT 15 U/L (7-52) 10/08/16 05:04 Alkaline Phosphatase 37 U/L (34-104) 10/08/16 05:04 Ammonia 39 umol/L (16-53) 10/08/16 05:04 Troponin I 8.44 ng/mL (0.01-0.05) H* D 10/08/16 05:04 B-Natriuretic Peptide 3310.0 pg/mL (5.0-100.0) H 10/08/16 05:04 Total Protein 6.3 gm/dL (6.0-8.3) 10/08/16 05:04 Albumin 2.9 gm/dL (4.2-5.5) L 10/08/16 05:04 Globulin 3.4 gm/dL 10/08/16 05:04 Albumin/Globulin Ratio 0.9 (1.0-1.8) L 10/08/16 05:04 Triglycerides 122 mg/dL (<150) 10/04/16 04:32 Cholesterol 132 mg/dL (<200) 10/04/16 04:32 LDL Cholesterol Direct 83 mg/dL (75-193) 10/04/16 04:32 HDL Cholesterol 33 mg/dL (23-92) 10/04/16 04:32 Free T4 1.14 ng/dL (0.82-1.77) 10/04/16 04:32 Free T3 1.4 pg/mL (2.0-4.4) L 10/04/16 04:32 TSH 1.79 uIU/ml (0.34-5.60) 10/04/16 04:32 Urine Source CLEAN C 10/07/16 09:30 Urine Color YELLOW 10/07/16 09:30 Urine Clarity SL. CLOUDY (CLEAR) 10/07/16 09:30 Urine pH 6.0 10/07/16 09:30 Ur Specific [place] (1.005-1.030) 10/07/16 09:30 Urine Protein 30 mg/dL (NEGATIVE) H 10/07/16 09:30 Urine Glucose (UA) NEGATIVE mg/dL (NEGATIVE) 10/07/16 09:30 Urine Ketones NEGATIVE mg/dL (NEGATIVE) 10/07/16 09:30 Urine Blood NEGATIVE (NEGATIVE) 10/07/16 09:30 Urine Nitrate NEGATIVE (NEGATIVE) 10/07/16 09:30 Urine Bilirubin NEGATIVE (NEGATIVE) 10/07/16 09:30 Urine Urobilinogen 0.2 E.U./dL (0.2 - 1.0) 10/07/16 09:30 Ur Leukocyte Esterase NEGATIVE (NEGATIVE) 10/07/16 09:30 Urine RBC NONE SEEN /hpf (0-5) 10/07/16 09:30 Urine WBC 0-2 /hpf (0-5) 10/07/16 09:30 Ur Epithelial Cells OCCASIONAL /lpf (FEW) 10/07/16 09:30 Amorphous Sediment MODERATE URATES (NONE SEEN) 10/03/16 04:10 Urine Bacteria OCCASIONAL /hpf (NONE SEEN) 10/07/16 09:30 Fine Granular Casts 0-2 /lpf (NONE SEEN) H 10/07/16 09:30 Urine Sperm FEW /hpf (NONE SEEN) 10/07/16 09:30 U Random Total Protein 43.0 mg/dL 10/06/16 05:30 Ur Random Sodium 30 mmol/L 10/04/16 14:52 Urine Collection Time 24 hours 10/06/16 05:30 Urine Total Volume 1300 ml 10/06/16 05:30 Urine Creatinine 113.2 mg/dl (Not Estab.) 10/04/16 14:52 Urine Microalbumin 84.6 ug/mL (Not Estab.) 10/04/16 14:52 Microalb/Creat Ratio 74.7 mg/g creat (0.0-30.0) H 10/04/16 14:52 U Tot Protein 24h, Calc 559.0 mg/24 hr (0-165) H 10/06/16 05:30 Vancomycin Trough 14.6 ug/mL (10-20) 10/08/16 13:00 HIV 1&2 Antibody Screen NEGATIVE (NEG) 10/07/16 15:00 - Physical Exam Vitals and I&O: Vital Signs Temp 96.5 F 10/08/16 08:00 Pulse 95 10/08/16 11:50 Resp 18 10/08/16 13:55 BP 117/70 10/08/16 11:00 Pulse Ox 93 10/08/16 13:25 Intake & Output 10/07/16 10/08/16 10/08/16 18:59 06:59 18:59 Intake Total 1765.667 120 Output Total 1050 500 Balance 715.667 -380 Weight (lbs) 75.07 kg 75.977 kg Intake: Intake, IV Amount 1365.667 Heparin 25,000 Units In 229 D5W 25,000 units In 250 ml @ Titrate IV TITR PRN Rx#:[id number] Sodium Chloride 0.9% 1, 836.667 000 ml @ 40 mls/hr IV . Q24H GAYLE Rx#:[id number] Vancomycin HCl 1.25 gm In 250 Sodium Chloride 0.9% 250 ml @ 165 mls/hr IV Q24H GAYLE Rx#:[id number] cefTRIAXone 1 gm In 50 Dextrose 5% 50 ml @ 100 mls/hr IV Q24H GAYLE Rx#: [id number] Oral 400 120 Output: Urine 1050 500 Other: # Voids 3 # Bowel Movements 0 0 Active Medications: Current Medications Acetaminophen (Tylenol) 650 mg PO Q4HR PRN PRN Reason: Fever > 101 Stop: 12/01/16 15:05 Acetaminophen/Hydrocodone Bitart ([place] 10 Mg/325 Mg) 1 tab PO Q4H PRN PRN Reason: pain Stop: 12/01/16 15:05 Last Admin: 10/08/16 08:56 Dose: 1 tab Albuterol Sulfate (Albuterol 2.5mg/3ml Neb Ud) 2.5 mg HHN Q2HR PRN PRN Reason: Wheezing Stop: 12/01/16 15:05 Last Admin: 10/03/16 14:35 Dose: 2.5 mg Albuterol Sulfate (Vospire Er) 4 mg PO BID GAYLE Stop: 12/01/16 16:59 Last Admin: 10/08/16 10:00 Dose: Not Given Albuterol/Ipratropium (Duoneb Neb) 3 ml HHN [id number] [facility] Stop: 12/02/16 18:59 Last Admin: 10/08/16 11:50 Dose: 3 ml Aspirin (Aspirin Chewable) 81 mg PO DAILY GAYLE Stop: 12/02/16 08:59 Last Admin: 10/08/16 08:56 Dose: 81 mg Atorvastatin Calcium (Lipitor) 10 mg PO DAILY GAYLE PRN Reason: Protocol Stop: 12/03/16 08:59 Last Admin: 10/08/16 08:55 Dose: 10 mg Budesonide (Pulmicort) 1 mg HHN BIDRT [facility] Stop: 12/02/16 18:59 Last Admin: 10/08/16 07:07 Dose: 1 mg Carvedilol (Coreg) 3.125 mg PO DAILY GAYLE Stop: 12/02/16 08:59 Last Admin: 10/08/16 08:32 Dose: Not Given Furosemide (Lasix) 40 mg IVP DAILY GAYLE Stop: 12/04/16 16:14 Last Admin: 10/08/16 09:06 Dose: 40 mg Ceftriaxone Sodium 1 gm/ (Dextrose) 50 mls @ 100 mls/hr IV Q24H GAYLE Stop: 12/02/16 15:29 Last Infusion: 10/07/16 17:00 Dose: Infused Heparin Sodium/Dextrose (Heparin Drip) 25,000 units in 250 mls @ 0 mls/hr IV TITR PRN; Protocol; Titrate PRN Reason: PROTOCOL Stop: 12/03/16 02:07 Last Admin: 10/07/16 08:35 Dose: 12 mls/hr Vancomycin HCl 1.25 gm/ Sodium (Chloride) 250 mls @ 165 mls/hr IV Q24H GAYLE Stop: 12/05/16 13:59 Last Infusion: 10/07/16 16:00 Dose: Infused Dextrose/Sodium Chloride (D5-0.9%Ns) 1,000 mls @ 50 mls/hr IV .Q20H GAYLE Stop: 12/07/16 08:29 Last Admin: 10/08/16 08:31 Dose: 50 mls/hr Ipratropium [place] (Atrovent Neb 0.5mg/2.5ml) 0.5 mg HHN Q2HR PRN PRN Reason: Wheezing Stop: 12/01/16 15:05 Last Admin: 10/03/16 14:35 Dose: 0.5 mg Lactobacillus Rhamnosus (Culturelle) 1 each PO DAILY GAYLE Stop: 12/04/16 08:59 Last Admin: 10/08/16 08:32 Dose: Not Given Lactulose (Cephulac) 30 gm PO BID GAYLE Stop: 12/04/16 16:59 Last Admin: 10/08/16 08:32 Dose: Not Given Lisinopril (Zestril) 5 mg PO DAILY GAYLE Stop: 12/03/16 08:59 Last Admin: 10/08/16 08:32 Dose: Not Given Lorazepam (Ativan) 0.5 mg PO BID PRN; Protocol PRN Reason: Anxiety Stop: 12/01/16 15:05 Last Admin: 10/06/16 17:33 Dose: 0.5 mg Lorazepam (Ativan) 1 mg IVP Q4HR PRN; Protocol PRN Reason: Agitation Stop: 12/02/16 18:57 Last Admin: 10/03/16 21:56 Dose: 1 mg Methylprednisolone Sodium Succinate (Solu-Medrol) 40 mg IV Q4HR GAYLE Stop: 12/02/16 15:59 Last Admin: 10/08/16 12:40 Dose: 40 mg Mirtazapine (Remeron) 15 mg PO HS GAYLE PRN Reason: Protocol Stop: 12/01/16 20:59 Last Admin: 10/07/16 20:14 Dose: 15 mg Miscellaneous (Vte Chemical Prophylaxis Screen/ Admission) 1 ea MC PRN PRN PRN Reason: PROTOCOL Stop: 12/01/16 16:51 Miscellaneous (Heparin Drip Per Pharmacy) 1 ea PRN GAYLE PRN Reason: Protocol Stop: 12/03/16 01:59 Miscellaneous (Probiotic Screen) 1 ea PRN PRN PRN Reason: PROTOCOL Stop: 12/04/16 08:41 Miscellaneous (Vancomycin Iv Per Pharmacy) 1 ea MC PRN GAYLE Stop: 12/05/16 12:14 Mupirocin (Bactroban Oint) 1 appl TP BID [facility] Stop: 12/02/16 16:59 Last Admin: 10/08/16 08:32 Dose: Not Given Nitroglycerin (Nitrostat) 0.4 mg SL Q5MIN PRN PRN Reason: Chest Pain Stop: 12/02/16 06:44 Last Admin: 10/03/16 10:31 Dose: 0.4 mg Pantoprazole Sodium (Protonix) 40 mg PO DAILY [facility] Stop: 12/02/16 07:29 Last Admin: 10/08/16 08:55 Dose: 40 mg Senna (Senna) 8.6 mg PO BID [facility] Stop: 12/01/16 16:59 Last Admin: 10/08/16 08:55 Dose: 8.6 mg General: Other (drowsy) HEENT: Atraumatic, Mucous membr. moist/pink Neck: Supple, +2 carotid pulse wo bruit Cardiovascular: Regular rate, Normal S1, Normal S2 Lungs: Other (few rhonchi, exp wheeze) Abdomen: Bowel sounds, Soft Extremities: no Edema Neurological: Sensation intact Skin: no Rash Psych/Mental Status: Other (drowsy) - Procedures Procedures: Procedures Procedure Code Date ASSISTANCE WITH RESPIRATORY VENTILATION, 24-96 HRS, CPAP 5K06119 10/02/16 POS AIRWAY PRESSURE CPAP 30581 10/02/16 Assessment/Plan - Problem List Patient Problems: All Active Problems SOB (Acute ~10/02/16) - Assessment Assessment: NARESH exacerbation of COPD on BIPAP right HAP cavity/mass lesion right apex CAD NSTE MA elevated BNP possibly pulm htn, structural heart ds., ? CHF PAD dyslipidemia severe malnutrition - Plan Plan: Lab - Result Diagrams 10/05/16 04:32 10/05/16 04:32 Current Medications Acetaminophen (Tylenol) 650 mg PO Q4HR PRN PRN Reason: Fever > 101 Stop: 12/01/16 15:05 Acetaminophen/Hydrocodone Bitart ([place] 10 Mg/325 Mg) 1 tab PO Q4H PRN PRN Reason: pain Stop: 12/01/16 15:05 Last Admin: 10/05/16 10:18 Dose: 1 tab Albuterol Sulfate (Albuterol 2.5mg/3ml Neb Ud) 2.5 mg HHN Q2HR PRN PRN Reason: Wheezing Stop: 12/01/16 15:05 Last Admin: 10/03/16 14:35 Dose: 2.5 mg Albuterol Sulfate (Vospire Er) 4 mg PO BID GAYLE Stop: 12/01/16 16:59 Last Admin: 10/05/16 14:16 Dose: 4 mg Albuterol/Ipratropium (Duoneb Neb) 3 ml HHN [id number] GAYLE Stop: 12/02/16 18:59 Last Admin: 10/05/16 11:17 Dose: 3 ml Aspirin (Aspirin Chewable) 81 mg PO DAILY GAYLE Stop: 12/02/16 08:59 Last Admin: 10/05/16 08:12 Dose: 81 mg Atorvastatin Calcium (Lipitor) 10 mg PO DAILY GAYLE PRN Reason: Protocol Stop: 12/03/16 08:59 Last Admin: 10/05/16 08:12 Dose: 10 mg Budesonide (Pulmicort) 1 mg HHN BIDRT G[facility]LE Stop: 12/02/16 18:59 Last Admin: 10/05/16 07:04 Dose: 1 mg Carvedilol (Coreg) 3.125 mg PO DAILY GAYLE Stop: 12/02/16 08:59 Last Admin: 10/05/16 08:11 Dose: 3.125 mg Furosemide (Lasix) 20 mg PO DAILY GAYLE Stop: 12/04/16 08:59 Last Admin: 10/05/16 09:00 Dose: 20 mg Ceftriaxone Sodium 1 gm/ (Dextrose) 50 mls @ 100 mls/hr IV Q24H GAYLE Stop: 12/02/16 15:29 Last Infusion: 10/04/16 17:45 Dose: Infused Azithromycin 500 mg/ Sodium (Chloride) 250 mls @ 250 mls/hr IV Q24HR GAYLE Stop: 12/02/16 15:29 Last Admin: 10/04/16 18:07 Dose: 250 mls/hr Heparin Sodium/Dextrose (Heparin Drip) 25,000 units in 250 mls @ 0 mls/hr IV TITR PRN; Protocol; Titrate PRN Reason: PROTOCOL Stop: 12/03/16 02:07 Last Admin: 10/04/16 23:01 Dose: 12 mls/hr Sodium Chloride (Nacl 0.9%) 1,000 mls @ 40 mls/hr IV .Q24H GAYLE Stop: 12/03/16 13:38 Last Admin: 10/04/16 16:45 Dose: 40 mls/hr Ipratropium [place] (Atrovent Neb 0.5mg/2.5ml) 0.5 mg HHN Q2HR PRN PRN Reason: Wheezing Stop: 12/01/16 15:05 Last Admin: 10/03/16 14:35 Dose: 0.5 mg Lactobacillus Rhamnosus (Culturelle) 1 each PO DAILY GAYLE Stop: 12/04/16 08:59 Last Admin: 10/05/16 11:37 Dose: 1 each Lactulose (Cephulac) 30 gm PO BID GAYLE Stop: 12/04/16 16:59 Lisinopril (Zestril) 5 mg PO DAILY GAYLE Stop: 12/03/16 08:59 Last Admin: 10/05/16 08:11 Dose: 5 mg Lorazepam (Ativan) 0.5 mg PO BID PRN; Protocol PRN Reason: Anxiety Stop: 12/01/16 15:05 Last Admin: 10/05/16 08:12 Dose: 0.5 mg Lorazepam (Ativan) 1 mg IVP Q4HR PRN; Protocol PRN Reason: Agitation Stop: 12/02/16 18:57 Last Admin: 10/03/16 21:56 Dose: 1 mg Methylprednisolone Sodium Succinate (Solu-Medrol) 40 mg IV Q4HR GAYLE Stop: 12/02/16 15:59 Last Admin: 10/05/16 11:37 Dose: 40 mg Mirtazapine (Remeron) 15 mg PO HS GAYLE PRN Reason: Protocol Stop: 12/01/16 20:59 Last Admin: 10/04/16 21:53 Dose: 15 mg Miscellaneous (Vte Chemical Prophylaxis Screen/ Admission) 1 ea PRN PRN PRN Reason: PROTOCOL Stop: 12/01/16 16:51 Miscellaneous (Heparin Drip Per Pharmacy) 1 [facility] PRN GAYLE PRN Reason: Protocol Stop: 12/03/16 01:59 Miscellaneous (Probiotic Screen) 1 ea MC PRN PRN PRN Reason: PROTOCOL Stop: 12/04/16 08:41 Mupirocin (Bactroban Oint) 1 appl TP BID [facility] Stop: 12/02/16 16:59 Last Admin: 10/05/16 09:00 Dose: 1 appl Nitroglycerin (Nitrostat) 0.4 mg SL Q5MIN PRN PRN Reason: Chest Pain Stop: 12/02/16 06:44 Last Admin: 10/03/16 10:31 Dose: 0.4 mg Pantoprazole Sodium (Protonix) 40 mg PO DAILY [facility] Stop: 12/02/16 07:29 Last Admin: 10/05/16 11:36 Dose: 40 mg Senna (Senna) 8.6 mg PO BID [facility] Stop: 12/01/16 16:59 Last Admin: 10/05/16 09:00 Dose: 8.6 mg kidney fnc basically the same w/ cr. 0f 1.4 FE Na 0.28% suggestive of pre renal component ECHO revealed LVH, CM, EJF 20%, RVSP? Lasix increased , started on IVF due to poor oral intake & refused ngt f/u electrolytes, cbc; still requires BIPAP cxr still no change, stable Nutritional Asmnt/Malnutr-PDOC - Dietary Evaluation Malnutrition Findings (Please click <Entered> for more info): Nutritional Asmnt/Malnutrition Start: 10/07/16 15: 35 Text: Status: Complete Freq: Document 10/07/16 15:36 GSUN (Rec: 10/07/16 15:55 GSUN [id number]) Nutritional Asmnt/Malnutrition Patient General Information Diagnosis Progress note: pneumonia, sepsis vs leukocytosis Pertinent Medical Hx/Surgical Hx H&P: CHF, COPD, CAD, MA, muscle weakness, HTN, hyperlipidemia Subjective Information 71 year old male on bipap. Pt was alert and pleasant during visit, mouthed to RD "I can't talk much right now" due to bipap. P stated he has lost weight recently due to physical inactivity. RD observed breakfast tray untouched. Spoek to RN, RN stated pt is not a breakfast person, ate 75% dinner last night. Avg PO intake <30% of meals, not meeting nutritional needs. Current Diet Order/ Nutrition Support Cardiac Pertinent Medications Lipitor, Lasix, Culturelle, Cephulac, Solu-Medrol, Remeron , Vancomycin, Protonix, Senna Pertinent Labs 10/07: BUN 50H, creatinine 1.5H , glucose 143H, BNP 3100H Nutritional Hx/Data Height 1.78 m Height (Calculated Centimeters) 177.8 Current Weight (lbs) 75.07 kg Weight (Calculated Kilograms) 75.1 Weight (Calculated Grams) 78444.5 [place] Body Weight 166lb Weight Status Approriate GI Symptoms Skin Integrity/Comment: Harjit 12. cloth tearer: pressure area coccyx Current %PO Negligible < 25% Estimated Nutritional Goals BEE in Kcals: Using Current wt Calories/Kcals/Kg CBW 165.5lb/75kg Kcals Calculated 2250-2625kcal (25-30kcal/kg) Protein: Using Current wt Protein g/kg: CBW Protein Calculated 75-113g (1-1.5g/kg) Fluid: ml 2250-2625ml (1ml/kcal) Nutritional Problem 1. Problem Problem Increased kcal and prot needs related to Etiology hypermetabolic state, pt report recent weight loss aeb Signs/Symptoms: pneumonia, sepsis vs leukocytosis, malnutrition per progress note Intervention/Recommendation Comments 1. Continue with cardiac diet. PO intake is suboptimal since adm. Continue to encourage PO intake and assist with meals. 2. Recommend Novasource Renal TID. 3. Monitor weight. Expected Outcomes/Goals Expected Outcomes/Goals 1. PO intake to meet 100% of estimated nutritional needs.
[2016-10-09] MEDS: Hydrocodone/APAP 10 mg/325 mg Tab PO PRN ×3 (01:27→21:37)
--- NOTE | 2016-10-09 02:47 | Progress Notes ---
PROBLEM LIST: 1. Acute respiratory failure. 2. Extensive pneumonia, right side. 3. Previous history of cavitary lesions with debris indicative of possibly fungus ____. 4. Severe malnutrition with cachexia. SYMPTOMS: Nil, feeling weak, feeling tired, feeling exhausted. No specific new symptom. He was on a Ventimask earlier, had to go BiPAP again because of slight desaturation of 50%. OBJECTIVE: VITAL SIGNS: Temperature is 98, patient's blood pressure is normotensive, respirations in low teens and saturation is 93% on supplemental oxygen 50%. ENT: Shows no new acute changes. CHEST: Shows diminished air entry with occasional rhonchi. HEART: Regular. ABDOMEN: Slightly distended, soft and nontender. ABG is still very marginal on 50% of oxygen. Electrolytes are okay and glucose is 162. The patient declines to have NG tube feeding. PLANS AND SUGGESTIONS: We will continue current treatment. We will follow the chest x-ray and blood gases. If he does not need ____ will start PPN or TPN and go from there. JOB# [id number]
[2016-10-09] MEDS: methylPREDNISolone SS 40 mg Vial IV SCH ×6 (05:09→20:09)
[2016-10-09 05:35] LABS: MEAN CELL VOLUME 92.3 fl (80-99); MEAN CORPUSCULAR HGB CONC 34.6 pg (28.0-36.0); MEAN PLATELET VOLUME 7.8 fl; RED BLOOD COUNT 3.14 Mil/cmm (3.80-5.80); RED CELL DISTRIBUTION WIDTH 17.6 % (11.5-20.0)
[2016-10-09 05:39] LABS: ALB/GLOB RATIO 0.9 (1.0-1.8); ALKALINE PHOSPHATASE 37 U/L (34-104); ANION GAP 9.6 (7.0-16.0); BILIRUBIN,TOTAL 0.6 mg/dL (0.3-1.0); BUN - UREA NITROGEN 58 mg/dL (7-25); BUN/CREATININE RATIO 36.3; CALCIUM SERUM 9.2 mg/dL (8.6-10.3); CARBON DIOXIDE 34.7 mEq/L (21.0-31.0); CHLORIDE 100 mEq/L (98-107); CREATININE - SERUM 1.6 mg/dL (0.7-1.3); GLUCOSE 192 mg/dL (70-105); POTASSIUM SERUM 4.3 mEq/L (3.5-5.1); SGOT 11 U/L (13-39); SGPT/ALT 14 U/L (7-52); SODIUM SERUM 140 mEq/L (136-145)
[2016-10-09 05:49] LABS: WHITE BLOOD COUNT 20.3 Th/cmm (4.8-10.8)
[2016-10-09 05:50] LABS: PLATELET COUNT 238 Th/cmm (150-400)
[2016-10-09 06:14] LABS: TROP I 5.18 ng/mL (0.01-0.05)
[2016-10-09] MEDS: Albuterol/Ipratropium Neb 3 ML AERS HHN SCH ×4 (06:56→18:50)
[2016-10-09] MEDS: Budesonide 0.5 Mg/2 mL Ud HHN SCH ×2 (06:57→18:52)
[2016-10-09 08:16] LABS: BAND NEUTROPHILE 2 % (0-10); METAMYELOCYTE 1 % (0-0); NEUTROPHILS 92 % (40-80); TOTAL CELLS COUNTED 100
[2016-10-09 08:17] LABS: ANISOCYTOSIS 1+; PLATELET ESTIMATE ADEQUATE (NORMAL); PLATELET MORPHOLOGY NORMAL (NORMAL)
[2016-10-09 08:27] LABS: pH 7.34 (7.35-7.45)
[2016-10-09 08:29] LABS: ABG SOURCE ARTERIAL; ALLEN TEST Positive; BE(B) 8.6 mEq/L (-3.0-3.0); HCO3 31.5 mEq/L (20.0-26.0)
[2016-10-09 08:30] LABS: FIO2 50; MECH RATE 12; MECH VT 350
[2016-10-09] MEDS: Pantoprazole 40 mg EC Tab PO SCH (08:48)
[2016-10-09] MEDS: Atorvastatin Calcium 10 MG TAB PO SCH (08:48)
[2016-10-09] MEDS: Lactobacillus Rhamnosus 10 Billion CFU Capsule PO SCH (08:48)
[2016-10-09] MEDS: Aspirin 81mg Chewable Tab PO SCH (08:48)
[2016-10-09] MEDS: Lactulose 10 Gm/15 mL 30mL UDC PO SCH ×2 (09:00→17:00)
--- NOTE | 2016-10-09 10:49 | Diagnostic Imaging Report ---
KUB abdominal film HISTORY: Pain, constipation The exam demonstrates stool within a mildly distended rectal region. Bowel gas pattern is otherwise nonspecific with nondilated small and large bowel. No free intraperitoneal air. Degenerative changes seen throughout the spine. There appears to be partial compression involving the bodies of T12, L1, and L2. IMPRESSION: 1. Mildly distended stool-filled rectum with an otherwise nonspecific bowel gas pattern
[2016-10-09] MEDS ORDERED: D5-0.9%NS 1,000 ML IV SCH (14:20)
--- NOTE | 2016-10-09 14:27 | General Progress Note ---
Subjective - Review of Systems Service Date: 10/09/16 Subjective: more awake today, intermittent BIPAP Objective - Results Result Diagrams: 10/09/16 05:04 10/09/16 05:04 Recent Labs: Laboratory Last Values WBC 20.3 Th/cmm (4.8-10.8) H* 10/09/16 05:04 RBC 3.14 Mil/cmm (3.80-5.80) L 10/09/16 05:04 Hgb 10.0 gm/dL (12.6-17.4) L 10/09/16 05:04 Hct 29.0 % (39.0-49.0) L 10/09/16 05:04 MCV 92.3 fl (80-99) 10/09/16 05:04 MCH 32.0 pg (27.0-31.0) H 10/09/16 05:04 MCHC Differential 34.6 pg (28.0-36.0) 10/09/16 05:04 RDW 17.6 % (11.5-20.0) 10/09/16 05:04 Plt Count 238 Th/cmm (150-400) D 10/09/16 05:04 MPV 7.8 fl 10/09/16 05:04 Neutrophils % WORM RAISER 10/09/16 05:04 Band Neutrophils % 2 % (0-10) 10/09/16 05:04 Lymphocytes % WORM RAISER 10/09/16 05:04 Monocytes % WORM RAISER 10/09/16 05:04 Eosinophils % 0.2 % (0.0-5.0) 10/03/16 06:36 Basophils % 0.4 % (0.0-2.0) 10/03/16 06:36 Neutrophils (Manual) 92 % (40-80) H 10/09/16 05:04 Lymphocytes 4 % (20-50) L 10/09/16 05:04 Monocytes 1 % (2-10) L 10/09/16 05:04 Eosinophils 1 % (0-5) 10/02/16 12:30 Metamyelocytes 1 % (0-0) H 10/09/16 05:04 Platelet Estimate ADEQUATE (NORMAL) 10/09/16 05:04 Platelet Morphology NORMAL (NORMAL) 10/09/16 05:04 Anisocytosis 1+ 10/09/16 05:04 RBC Morph Micro Appear ABNORMAL (NORMAL) 10/09/16 05:04 Eos Smear Source URINE 10/04/16 14:52 Eos Smear Total Cells NONE SEEN (NONE SEEN) 10/04/16 14:52 PT 10.2 SECONDS (9.5-11.5) 10/04/16 02:03 INR 0.98 (0.5-1.4) 10/04/16 02:03 PTT (Actin FS) 46.3 SECONDS (26.0-38.0) H 10/09/16 05:04 Specimen Source ARTERIAL 10/09/16 08:05 Sample Site Right Radial 10/09/16 08:05 pH 7.34 (7.35-7.45) L 10/09/16 08:05 pCO2 68.0 mmHg (35.0-45.0) H* 10/09/16 08:05 pO2 66.0 mmHg (80.0-100.0) L 10/09/16 08:05 HCO3 31.5 mEq/L (20.0-26.0) H 10/09/16 08:05 Base Excess 8.6 mEq/L (-3.0-3.0) H 10/09/16 08:05 O2 Saturation 91.0 % (92.0-100.0) L 10/09/16 08:05 Simon Test Positive 10/09/16 08:05 Vent Rate 12 10/09/16 08:05 Inspired O2 50 10/09/16 08:05 Tidal Volume 350 10/09/16 08:05 PEEP N/A 10/09/16 08:05 Pressure (ins/psv/peep) N/A 10/09/16 08:05 Critical Value MMIRANDA 10/09/16 08:05 Sodium 140 mEq/L (136-145) 10/09/16 05:04 Potassium 4.3 mEq/L (3.5-5.1) 10/09/16 05:04 Chloride 100 mEq/L (98-107) 10/09/16 05:04 Carbon Dioxide 34.7 mEq/L (21.0-31.0) H 10/09/16 05:04 Anion Gap 9.6 (7.0-16.0) 10/09/16 05:04 BUN 58 mg/dL (7-25) H 10/09/16 05:04 Creatinine 1.6 mg/dL (0.7-1.3) H 10/09/16 05:04 Est GFR ( Amer) TNP 10/09/16 05:04 Est GFR (Non-Af Amer) TNP 10/09/16 05:04 BUN/Creatinine Ratio 36.3 10/09/16 05:04 Glucose 192 mg/dL (70-105) H 10/09/16 05:04 Hemoglobin A1c % 5.3 % (4.0-6.0) 10/09/16 05:04 Whole Bld Lactic Acid 0.79 mmol/L (0.60-1.99) 10/02/16 14:50 Uric Acid 8.5 mg/dL (4.4-7.6) H 10/05/16 04:32 Calcium 9.2 mg/dL (8.6-10.3) 10/09/16 05:04 Phosphorus 4.7 mg/dL (2.5-5.0) 10/05/16 04:32 Magnesium 2.4 mg/dL (1.9-2.7) 10/05/16 04:32 Total Bilirubin 0.6 mg/dL (0.3-1.0) 10/09/16 05:04 AST 11 U/L (13-39) L 10/09/16 05:04 ALT 14 U/L (7-52) 10/09/16 05:04 Alkaline Phosphatase 37 U/L (34-104) 10/09/16 05:04 Ammonia 39 umol/L (16-53) 10/08/16 05:04 Troponin I 5.18 ng/mL (0.01-0.05) H* D 10/09/16 05:04 B-Natriuretic Peptide 3840.0 pg/mL (5.0-100.0) H 10/09/16 05:04 Total Protein 6.6 gm/dL (6.0-8.3) 10/09/16 05:04 Albumin 3.1 gm/dL (4.2-5.5) L 10/09/16 05:04 Globulin 3.5 gm/dL 10/09/16 05:04 Albumin/Globulin Ratio 0.9 (1.0-1.8) L 10/09/16 05:04 Triglycerides 122 mg/dL (<150) 10/04/16 04:32 Cholesterol 132 mg/dL (<200) 10/04/16 04:32 LDL Cholesterol Direct 83 mg/dL (75-193) 10/04/16 04:32 HDL Cholesterol 33 mg/dL (23-92) 10/04/16 04:32 Free T4 1.14 ng/dL (0.82-1.77) 10/04/16 04:32 Free T3 1.4 pg/mL (2.0-4.4) L 10/04/16 04:32 TSH 1.79 uIU/ml (0.34-5.60) 10/04/16 04:32 Urine Source CLEAN C 10/07/16 09:30 Urine Color YELLOW 10/07/16 09:30 Urine Clarity SL. CLOUDY (CLEAR) 10/07/16 09:30 Urine pH 6.0 10/07/16 09:30 Ur Specific [place] (1.005-1.030) 10/07/16 09:30 Urine Protein 30 mg/dL (NEGATIVE) H 10/07/16 09:30 Urine Glucose (UA) NEGATIVE mg/dL (NEGATIVE) 10/07/16 09:30 Urine Ketones NEGATIVE mg/dL (NEGATIVE) 10/07/16 09:30 Urine Blood NEGATIVE (NEGATIVE) 10/07/16 09:30 Urine Nitrate NEGATIVE (NEGATIVE) 10/07/16 09:30 Urine Bilirubin NEGATIVE (NEGATIVE) 10/07/16 09:30 Urine Urobilinogen 0.2 E.U./dL (0.2 - 1.0) 10/07/16 09:30 Ur Leukocyte Esterase NEGATIVE (NEGATIVE) 10/07/16 09:30 Urine RBC NONE SEEN /hpf (0-5) 10/07/16 09:30 Urine WBC 0-2 /hpf (0-5) 10/07/16 09:30 Ur Epithelial Cells OCCASIONAL /lpf (FEW) 10/07/16 09:30 Amorphous Sediment MODERATE URATES (NONE SEEN) 10/03/16 04:10 Urine Bacteria OCCASIONAL /hpf (NONE SEEN) 10/07/16 09:30 Fine Granular Casts 0-2 /lpf (NONE SEEN) H 10/07/16 09:30 Urine Sperm FEW /hpf (NONE SEEN) 10/07/16 09:30 U Random Total Protein 43.0 mg/dL 10/06/16 05:30 Ur Random Sodium 30 mmol/L 10/04/16 14:52 Urine Collection Time 24 hours 10/06/16 05:30 Urine Total Volume 1300 ml 10/06/16 05:30 Urine Creatinine 113.2 mg/dl (Not Estab.) 10/04/16 14:52 Urine Microalbumin 84.6 ug/mL (Not Estab.) 10/04/16 14:52 Microalb/Creat Ratio 74.7 mg/g creat (0.0-30.0) H 10/04/16 14:52 U Tot Protein 24h, Calc 559.0 mg/24 hr (0-165) H 10/06/16 05:30 Vancomycin Trough 14.6 ug/mL (10-20) 10/08/16 13:00 HIV 1&2 Antibody Screen NEGATIVE (NEG) 10/07/16 15:00 - Physical Exam Vitals and I&O: Vital Signs Temp 98.3 F 10/09/16 08:00 Pulse 89 10/09/16 10:13 Resp 22 10/09/16 10:13 BP 123/82 10/09/16 10:00 Pulse Ox 98 10/09/16 10:13 Intake & Output 10/08/16 10/09/16 10/09/16 18:59 06:59 18:59 Intake Total 450 150 Output Total 780 450 Balance -330 -300 Intake: Intake, IV Amount 250 Vancomycin HCl 1.25 gm In 250 Sodium Chloride 0.9% 250 ml @ 165 mls/hr IV Q24H [facility] Rx#:[id number] Oral 200 150 Output: Urine 780 450 Other: # Bowel Movements 0 Active Medications: Current Medications Acetaminophen (Tylenol) 650 mg PO Q4HR PRN PRN Reason: Fever > 101 Stop: 12/01/16 15:05 Acetaminophen/Hydrocodone Bitart ([place] 10 Mg/325 Mg) 1 tab PO Q4H PRN PRN Reason: pain Stop: 12/01/16 15:05 Last Admin: 10/09/16 01:27 Dose: 1 tab Albuterol Sulfate (Albuterol 2.5mg/3ml Neb Ud) 2.5 mg HHN Q2HR PRN PRN Reason: Wheezing Stop: 12/01/16 15:05 Last Admin: 10/03/16 14:35 Dose: 2.5 mg Albuterol/Ipratropium (Duoneb Neb) 3 ml HHN [id number] GAYLE Stop: 12/02/16 18:59 Last Admin: 10/09/16 14:22 Dose: 3 ml Aspirin (Aspirin Chewable) 81 mg PO DAILY GAYLE Stop: 12/02/16 08:59 Last Admin: 10/09/16 08:48 Dose: 81 mg Atorvastatin Calcium (Lipitor) 10 mg PO DAILY GAYLE PRN Reason: Protocol Stop: 12/03/16 08:59 Last Admin: 10/09/16 08:48 Dose: 10 mg Budesonide (Pulmicort) 1 mg HHN BIDRT GAYLE Stop: 12/02/16 18:59 Last Admin: 10/09/16 06:57 Dose: 1 mg Carvedilol (Coreg) 3.125 mg PO DAILY GAYLE Stop: 12/02/16 08:59 Last Admin: 10/08/16 08:32 Dose: Not Given Furosemide (Lasix) 40 mg IVP DAILY [facility] Stop: 12/04/16 16:14 Last Admin: 10/09/16 08:47 Dose: 40 mg Heparin Sodium/Dextrose (Heparin Drip) 25,000 units in 250 mls @ 0 mls/hr IV TITR PRN; Protocol; Titrate PRN Reason: PROTOCOL Stop: 12/03/16 02:07 Last Admin: 10/08/16 09:00 Dose: 12 mls/hr Vancomycin HCl 1.25 gm/ Sodium (Chloride) 250 mls @ 165 mls/hr IV Q24H GAYLE Stop: 12/05/16 13:59 Last Infusion: 10/08/16 15:45 Dose: Infused Dextrose/Sodium Chloride (D5-0.9%Ns) 1,000 mls @ 30 mls/hr IV .Q24H [facility] Stop: 12/07/16 08:29 Ipratropium [place] (Atrovent Neb 0.5mg/2.5ml) 0.5 mg HHN Q2HR PRN PRN Reason: Wheezing Stop: 12/01/16 15:05 Last Admin: 10/03/16 14:35 Dose: 0.5 mg Lactobacillus Rhamnosus (Culturelle) 1 each PO DAILY GAYLE Stop: 12/04/16 08:59 Last Admin: 10/09/16 08:48 Dose: 1 each Lactulose (Cephulac) 30 gm PO BID GAYLE Stop: 12/04/16 16:59 Last Admin: 10/08/16 16:51 Dose: 30 gm Lorazepam (Ativan) 0.5 mg PO BID PRN; Protocol PRN Reason: Anxiety Stop: 12/01/16 15:05 Last Admin: 10/09/16 05:09 Dose: 0.5 mg Lorazepam (Ativan) 1 mg IVP Q4HR PRN; Protocol PRN Reason: Agitation Stop: 12/02/16 18:57 Last Admin: 10/03/16 21:56 Dose: 1 mg Methylprednisolone Sodium Succinate (Solu-Medrol) 40 mg IV Q4HR GAYLE Stop: 12/02/16 15:59 Last Admin: 10/09/16 08:46 Dose: 40 mg Mirtazapine (Remeron) 15 mg PO HS GAYLE PRN Reason: Protocol Stop: 12/01/16 20:59 Last Admin: 10/08/16 20:21 Dose: 15 mg Miscellaneous (Vte Chemical Prophylaxis Screen/ Admission) 1 ea PRN PRN PRN Reason: PROTOCOL Stop: 12/01/16 16:51 Miscellaneous (Heparin Drip Per Pharmacy) 1 ea PRN GAYLE PRN Reason: Protocol Stop: 12/03/16 01:59 Miscellaneous (Probiotic Screen) 1 ea PRN PRN PRN Reason: PROTOCOL Stop: 12/04/16 08:41 Miscellaneous (Vancomycin Iv Per Pharmacy) 1 ea PRN GAYLE Stop: 12/05/16 12:14 Mupirocin (Bactroban Oint) 1 appl TP BID GAYLE Stop: 12/02/16 16:59 Last Admin: 10/08/16 16:54 Dose: 1 appl Nitroglycerin (Nitrostat) 0.4 mg SL Q5MIN PRN PRN Reason: Chest Pain Stop: 12/02/16 06:44 Last Admin: 10/03/16 10:31 Dose: 0.4 mg Pantoprazole Sodium (Protonix) 40 mg PO DAILY GAYLE Stop: 12/02/16 07:29 Last Admin: 10/09/16 08:48 Dose: 40 mg Senna (Senna) 8.6 mg PO BID GAYLE Stop: 12/01/16 16:59 Last Admin: 10/09/16 08:48 Dose: 8.6 mg General: Other (drowsy, on bipap) HEENT: Atraumatic, Mucous membr. moist/pink Neck: Supple, +2 carotid pulse wo bruit Cardiovascular: Regular rate, Normal S1, Normal S2 Lungs: Other (rhonchi, exp wheeze) Abdomen: Bowel sounds, Soft Extremities: no Edema Neurological: Sensation intact Skin: no Rash Psych/Mental Status: Mood NL - Procedures Procedures: Procedures Procedure Code Date ASSISTANCE WITH RESPIRATORY VENTILATION, 24-96 HRS, CPAP [id number] 10/02/16 POS AIRWAY PRESSURE CPAP 13211 10/02/16 Assessment/Plan - Problem List Patient Problems: All Active Problems SOB (Acute ~10/02/16) - Assessment Assessment: NARESH exacerbation of COPD on BIPAP right HAP cavity/mass lesion right apex CAD NSTE NM elevated BNP possibly pulm htn, structural heart ds., ? CHF PAD dyslipidemia severe malnutrition - Plan Plan: Lab - Result Diagrams 10/05/16 04:32 10/05/16 04:32 Current Medications Acetaminophen (Tylenol) 650 mg PO Q4HR PRN PRN Reason: Fever > 101 Stop: 12/01/16 15:05 Acetaminophen/Hydrocodone Bitart ([place] 10 Mg/325 Mg) 1 tab PO Q4H PRN PRN Reason: pain Stop: 12/01/16 15:05 Last Admin: 10/05/16 10:18 Dose: 1 tab Albuterol Sulfate (Albuterol 2.5mg/3ml Neb Ud) 2.5 mg HHN Q2HR PRN PRN Reason: Wheezing Stop: 12/01/16 15:05 Last Admin: 10/03/16 14:35 Dose: 2.5 mg Albuterol Sulfate (Vospire Er) 4 mg PO BID [facility] Stop: 12/01/16 16:59 Last Admin: 10/05/16 14:16 Dose: 4 mg Albuterol/Ipratropium (Duoneb Neb) 3 ml HHN [id number] [facility] Stop: 12/02/16 18:59 Last Admin: 10/05/16 11:17 Dose: 3 ml Aspirin (Aspirin Chewable) 81 mg PO DAILY [facility] Stop: 12/02/16 08:59 Last Admin: 10/05/16 08:12 Dose: 81 mg Atorvastatin Calcium (Lipitor) 10 mg PO DAILY [facility] PRN Reason: Protocol Stop: 12/03/16 08:59 Last Admin: 10/05/16 08:12 Dose: 10 mg Budesonide (Pulmicort) 1 mg HHN BIDRT GAYLE Stop: 12/02/16 18:59 Last Admin: 10/05/16 07:04 Dose: 1 mg Carvedilol (Coreg) 3.125 mg PO DAILY GAYLE Stop: 12/02/16 08:59 Last Admin: 10/05/16 08:11 Dose: 3.125 mg Furosemide (Lasix) 20 mg PO DAILY GAYLE Stop: 12/04/16 08:59 Last Admin: 10/05/16 09:00 Dose: 20 mg Ceftriaxone Sodium 1 gm/ (Dextrose) 50 mls @ 100 mls/hr IV Q24H GAYLE Stop: 12/02/16 15:29 Last Infusion: 10/04/16 17:45 Dose: Infused Azithromycin 500 mg/ Sodium (Chloride) 250 mls @ 250 mls/hr IV Q24HR GAYLE Stop: 12/02/16 15:29 Last Admin: 10/04/16 18:07 Dose: 250 mls/hr Heparin Sodium/Dextrose (Heparin Drip) 25,000 units in 250 mls @ 0 mls/hr IV TITR PRN; Protocol; Titrate PRN Reason: PROTOCOL Stop: 12/03/16 02:07 Last Admin: 10/04/16 23:01 Dose: 12 mls/hr Sodium Chloride (Nacl 0.9%) 1,000 mls @ 40 mls/hr IV .Q24H [facility] Stop: 12/03/16 13:38 Last Admin: 10/04/16 16:45 Dose: 40 mls/hr Ipratropium [place] (Atrovent Neb 0.5mg/2.5ml) 0.5 mg HHN Q2HR PRN PRN Reason: Wheezing Stop: 12/01/16 15:05 Last Admin: 10/03/16 14:35 Dose: 0.5 mg Lactobacillus Rhamnosus (Culturelle) 1 each PO DAILY GAYLE Stop: 12/04/16 08:59 Last Admin: 10/05/16 11:37 Dose: 1 each Lactulose (Cephulac) 30 gm PO BID [facility] Stop: 12/04/16 16:59 Lisinopril (Zestril) 5 mg PO DAILY GAYLE Stop: 12/03/16 08:59 Last Admin: 10/05/16 08:11 Dose: 5 mg Lorazepam (Ativan) 0.5 mg PO BID PRN; Protocol PRN Reason: Anxiety Stop: 12/01/16 15:05 Last Admin: 10/05/16 08:12 Dose: 0.5 mg Lorazepam (Ativan) 1 mg IVP Q4HR PRN; Protocol PRN Reason: Agitation Stop: 12/02/16 18:57 Last Admin: 10/03/16 21:56 Dose: 1 mg Methylprednisolone Sodium Succinate (Solu-Medrol) 40 mg IV Q4HR GAYLE Stop: 12/02/16 15:59 Last Admin: 10/05/16 11:37 Dose: 40 mg Mirtazapine (Remeron) 15 mg PO HS GAYLE PRN Reason: Protocol Stop: 12/01/16 20:59 Last Admin: 10/04/16 21:53 Dose: 15 mg Miscellaneous (Vte Chemical Prophylaxis Screen/ Admission) 1 [facility] PRN PRN PRN Reason: PROTOCOL Stop: 12/01/16 16:51 Miscellaneous (Heparin Drip Per Pharmacy) 1 [facility] PRN GAYLE PRN Reason: Protocol Stop: 12/03/16 01:59 Miscellaneous (Probiotic Screen) 1 [facility] PRN PRN PRN Reason: PROTOCOL Stop: 12/04/16 08:41 Mupirocin (Bactroban Oint) 1 appl TP BID [facility] Stop: 12/02/16 16:59 Last Admin: 10/05/16 09:00 Dose: 1 appl Nitroglycerin (Nitrostat) 0.4 mg SL Q5MIN PRN PRN Reason: Chest Pain Stop: 12/02/16 06:44 Last Admin: 10/03/16 10:31 Dose: 0.4 mg Pantoprazole Sodium (Protonix) 40 mg PO DAILY [facility] Stop: 12/02/16 07:29 Last Admin: 10/05/16 11:36 Dose: 40 mg Senna (Senna) 8.6 mg PO BID [facility] Stop: 12/01/16 16:59 Last Admin: 10/05/16 09:00 Dose: 8.6 mg kidney fnc slightly deteriorated w/ cr. 0f 1.6 FE Na 0.28% suggestive of pre renal component ECHO revealed LVH, CM, EJF 20%, RVSP? Lasix increased , started on IVF due to poor oral intake & refused ngt f/u electrolytes, cbc; still requires BIPAP cxr still no change, stable WBC up to 20.3 Nutritional Asmnt/Malnutr-PDOC - Dietary Evaluation Malnutrition Findings (Please click <Entered> for more info): Nutritional Asmnt/Malnutrition Start: 10/07/16 15: 35 Text: Status: Complete Freq: Document 10/07/16 15:36 GSUN (Rec: 10/07/16 15:55 GSUN [id number]) Nutritional Asmnt/Malnutrition Patient General Information Diagnosis Progress note: pneumonia, sepsis vs leukocytosis Pertinent Medical Hx/Surgical Hx H&P: CHF, COPD, CAD, NM, muscle weakness, HTN, hyperlipidemia Subjective Information 71 year old male on bipap. Pt was alert and pleasant during visit, mouthed to RD "I can't talk much right now" due to bipap. P stated he has lost weight recently due to physical inactivity. RD observed breakfast tray untouched. Spoek to RN, RN stated pt is not a breakfast person, ate 75% dinner last night. Avg PO intake <30% of meals, not meeting nutritional needs. Current Diet Order/ Nutrition Support Cardiac Pertinent Medications Lipitor, Lasix, Culturelle, Cephulac, Solu-Medrol, Remeron , Vancomycin, Protonix, Senna Pertinent Labs 10/07: BUN 50H, creatinine 1.5H , glucose 143H, BNP 3100H Nutritional Hx/Data Height 1.78 m Height (Calculated Centimeters) 177.8 Current Weight (lbs) 75.07 kg Weight (Calculated Kilograms) 75.1 Weight (Calculated Grams) 42686.5 [place] Body Weight 166lb Weight Status Approriate GI Symptoms Skin Integrity/Comment: Harjit 12. manager banquet: pressure area coccyx Current %PO Negligible < 25% Estimated Nutritional Goals BEE in Kcals: Using Current wt Calories/Kcals/Kg CBW 165.5lb/75kg Kcals Calculated 2250-2625kcal (25-30kcal/kg) Protein: Using Current wt Protein g/kg: CBW Protein Calculated 75-113g (1-1.5g/kg) Fluid: ml 2250-2625ml (1ml/kcal) Nutritional Problem 1. Problem Problem Increased kcal and prot needs related to Etiology hypermetabolic state, pt report recent weight loss aeb Signs/Symptoms: pneumonia, sepsis vs leukocytosis, malnutrition per progress note Intervention/Recommendation Comments 1. Continue with cardiac diet. PO intake is suboptimal since adm. Continue to encourage PO intake and assist with meals. 2. Recommend Novasource Renal TID. 3. Monitor weight. Expected Outcomes/Goals Expected Outcomes/Goals 1. PO intake to meet 100% of estimated nutritional needs.
--- NOTE | 2016-10-09 22:55 | Progress Notes ---
PULMONARY PROGRESS NOTE PROBLEM LIST: 1. Persistent respiratory failure. 2. Right lower lobe pneumonia. 3. Chronic obstructive pulmonary disease. 4. Possibly Aspergillus or fungus ball in the cavity, probably old. SYMPTOMS: Nil. The patient is still on BiPAP of 50%, saturating okay, offers no specific symptomatology. He says he is feeling okay. PHYSICAL EXAMINATION: VITAL SIGNS: Temperature is around 99, heart rate is around 90s, respirations 20, and saturation 98 on 50%. ENT: Shows no new changes. CHEST: Shows diminished air entry with occasional rales. HEART: Regular. ABDOMEN: Soft and nontender. LABORATORY DATA: The patient's white count is 20,000, ABG shows compensated respiratory acidemia on 50%, pO2 of 66, and pH of 7.34. Electrolytes are okay. ASSESSMENT: The patient is clinically stable, not significantly much changed. Continues to have advanced chronic obstructive pulmonary disease with previous lobectomy associated with right lower lobe pneumonia. PLANS AND SUGGESTIONS: We will go ahead and continue current treatment, follow through the lab including acid fast in the next few days and go from there. JOB# [id number]
[2016-10-10] MEDS: Heparin 25,000 Units In D5W 25,000 UNITS/250 ML BAG IV PRN (00:54)
[2016-10-10] MEDS: methylPREDNISolone SS 40 mg Vial IV SCH ×6 (04:00→21:25)
[2016-10-10 05:10] LABS: HEMATOCRIT 30.7 % (39.0-49.0); MEAN CELL VOLUME 95.1 fl (80-99); MEAN CORPUSCULAR HEMOGLOBIN 31.1 pg (27.0-31.0); MEAN CORPUSCULAR HGB CONC 32.7 pg (28.0-36.0); MEAN PLATELET VOLUME 8.3 fl; PLATELET COUNT 221 Th/cmm (150-400); RED BLOOD COUNT 3.23 Mil/cmm (3.80-5.80); RED CELL DISTRIBUTION WIDTH 18.1 % (11.5-20.0)
[2016-10-10 05:20] LABS: WHITE BLOOD COUNT 22.9 Th/cmm (4.8-10.8)
[2016-10-10] MEDS ORDERED: Hydrocodone/APAP 10 mg/325 mg Tab PO PRN (05:25)
[2016-10-10 05:31] LABS: ALB/GLOB RATIO 0.9 (1.0-1.8); ALKALINE PHOSPHATASE 37 U/L (34-104); BILIRUBIN,TOTAL 0.9 mg/dL (0.3-1.0); BUN - UREA NITROGEN 75 mg/dL (7-25); BUN/CREATININE RATIO 41.7; CALCIUM SERUM 9.3 mg/dL (8.6-10.3); CARBON DIOXIDE 32.8 mEq/L (21.0-31.0); CHLORIDE 102 mEq/L (98-107); CREATININE - SERUM 1.8 mg/dL (0.7-1.3); GLUCOSE 161 mg/dL (70-105); POTASSIUM SERUM 4.8 mEq/L (3.5-5.1); SGOT 259 U/L (13-39); SGPT/ALT 319 U/L (7-52); SODIUM SERUM 142 mEq/L (136-145)
[2016-10-10 05:48] LABS: BAND NEUTROPHILE 4 % (0-10); NEUTROPHILS 85 % (40-80); PLATELET ESTIMATE ADEQUATE (NORMAL); TOTAL CELLS COUNTED 100
[2016-10-10] MEDS: Albuterol/Ipratropium Neb 3 ML AERS HHN SCH ×4 (07:11→19:06)
[2016-10-10] MEDS: Budesonide 0.5 Mg/2 mL Ud HHN SCH ×2 (07:15→19:07)
[2016-10-10] MEDS: Atorvastatin Calcium 10 MG TAB PO SCH (08:24)
[2016-10-10] MEDS: Pantoprazole 40 mg EC Tab PO SCH (08:24)
[2016-10-10] MEDS: Aspirin 81mg Chewable Tab PO SCH (08:24)
[2016-10-10] MEDS: Lactobacillus Rhamnosus 10 Billion CFU Capsule PO SCH (08:25)
--- NOTE | 2016-10-10 09:08 | Diagnostic Imaging Report ---
Portable chest x-ray HISTORY: Pneumonia Compared with prior exam of October 08, 2016, no change in severe infiltrate throughout the right lung along with pleural thickening in the right apical region and right lower hemithorax. There appears to be increased infiltrate within the left lung. Differences in radiographic technique and positioning may be contributing. The heart is enlarged. IMPRESSION: 1. Persistent diffuse infiltrate and pleural thickening noted throughout the right hemithorax 2. Suggestion of increased infiltrate within the left lung. Differences may be related to radiographic technique and positioning. 3. Persistent cardiomegaly with atherosclerotic vascular changes
[2016-10-10] MEDS: Lactulose 10 Gm/15 mL 30mL UDC PO SCH (13:09)
[2016-10-10 13:50] LABS: HEMATOCRIT 28.4 % (39.0-49.0); HEMOGLOBIN 9.4 gm/dL (12.6-17.4); MEAN CELL VOLUME 95.3 fl (80-99); MEAN CORPUSCULAR HEMOGLOBIN 31.6 pg (27.0-31.0); MEAN CORPUSCULAR HGB CONC 33.2 pg (28.0-36.0); MEAN PLATELET VOLUME 8.7 fl; RED BLOOD COUNT 2.98 Mil/cmm (3.80-5.80); RED CELL DISTRIBUTION WIDTH 18.1 % (11.5-20.0)
[2016-10-10 14:15] LABS: WHITE BLOOD COUNT 18.9 Th/cmm (4.8-10.8)
[2016-10-10 14:47] LABS: BAND NEUTROPHILE 7 % (0-10); BASOPHIL 0 % (0-3); EOSINOPHIL 0 % (0-5); NEUTROPHILS 86 % (40-80); PLATELET COUNT 144 Th/cmm (150-400); PLATELET ESTIMATE ADEQUATE (NORMAL); TOTAL CELLS COUNTED 100
[2016-10-10 14:48] LABS: PLATELET MORPHOLOGY PLATELET CLUMPS SEEN (NORMAL)
--- NOTE | 2016-10-10 17:44 | General Progress Note ---
Subjective - Review of Systems Service Date: 10/10/16 Events since last encounter: still on bipap awake but less interactive Objective - Results Result Diagrams: 10/10/16 13:14 10/10/16 04:53 Recent Labs: Laboratory Last Values WBC 18.9 Th/cmm (4.8-10.8) H 10/10/16 13:14 RBC 2.98 Mil/cmm (3.80-5.80) L 10/10/16 13:14 Hgb 9.4 gm/dL (12.6-17.4) L 10/10/16 13:14 Hct 28.4 % (39.0-49.0) L 10/10/16 13:14 MCV 95.3 fl (80-99) 10/10/16 13:14 MCH 31.6 pg (27.0-31.0) H 10/10/16 13:14 MCHC Differential 33.2 pg (28.0-36.0) 10/10/16 13:14 RDW 18.1 % (11.5-20.0) 10/10/16 13:14 Plt Count 144 Th/cmm (150-400) L D 10/10/16 13:14 MPV 8.7 fl 10/10/16 13:14 Neutrophils % MANAGER OF FINANCIAL REPORTING 10/09/16 05:04 Band Neutrophils % 7 % (0-10) 10/10/16 13:14 Lymphocytes % MANAGER OF FINANCIAL REPORTING 10/09/16 05:04 Monocytes % MANAGER OF FINANCIAL REPORTING 10/09/16 05:04 Eosinophils % 0.2 % (0.0-5.0) 10/03/16 06:36 Basophils % 0.4 % (0.0-2.0) 10/03/16 06:36 Neutrophils (Manual) 86 % (40-80) H 10/10/16 13:14 Lymphocytes 4 % (20-50) L 10/10/16 13:14 Monocytes 3 % (2-10) 10/10/16 13:14 Eosinophils 0 % (0-5) 10/10/16 13:14 Basophils 0 % (0-3) 10/10/16 13:14 Metamyelocytes 1 % (0-0) H 10/09/16 05:04 Platelet Estimate ADEQUATE (NORMAL) 10/10/16 13:14 Platelet Morphology PLATELET CLUMPS SEEN (NORMAL) 10/10/16 13:14 Anisocytosis 1+ 10/09/16 05:04 RBC Morph Micro Appear NORMAL (NORMAL) 10/10/16 13:14 Eos Smear Source URINE 10/04/16 14:52 Eos Smear Total Cells NONE SEEN (NONE SEEN) 10/04/16 14:52 PT 10.2 SECONDS (9.5-11.5) 10/04/16 02:03 INR 0.98 (0.5-1.4) 10/04/16 02:03 PTT (Actin FS) 69.4 SECONDS (26.0-38.0) H 10/10/16 13:14 Specimen Source ARTERIAL 10/09/16 08:05 Sample Site Right Radial 10/09/16 08:05 pH 7.34 (7.35-7.45) L 10/09/16 08:05 pCO2 68.0 mmHg (35.0-45.0) H* 10/09/16 08:05 pO2 66.0 mmHg (80.0-100.0) L 10/09/16 08:05 HCO3 31.5 mEq/L (20.0-26.0) H 10/09/16 08:05 Base Excess 8.6 mEq/L (-3.0-3.0) H 10/09/16 08:05 O2 Saturation 91.0 % (92.0-100.0) L 10/09/16 08:05 Simon Test Positive 10/09/16 08:05 Vent Rate 12 10/09/16 08:05 Inspired O2 50 10/09/16 08:05 Tidal Volume 350 10/09/16 08:05 PEEP N/A 10/09/16 08:05 Pressure (ins/psv/peep) N/A 10/09/16 08:05 Critical Value MMIRANDA 10/09/16 08:05 Sodium 142 mEq/L (136-145) 10/10/16 04:53 Potassium 4.8 mEq/L (3.5-5.1) 10/10/16 04:53 Chloride 102 mEq/L (98-107) 10/10/16 04:53 Carbon Dioxide 32.8 mEq/L (21.0-31.0) H 10/10/16 04:53 Anion Gap 12.0 (7.0-16.0) 10/10/16 04:53 BUN 75 mg/dL (7-25) H 10/10/16 04:53 Creatinine 1.8 mg/dL (0.7-1.3) H 10/10/16 04:53 Est GFR ( Amer) TNP 10/10/16 04:53 Est GFR (Non-Af Amer) TNP 10/10/16 04:53 BUN/Creatinine Ratio 41.7 10/10/16 04:53 Glucose 161 mg/dL (70-105) H 10/10/16 04:53 Hemoglobin A1c % 5.3 % (4.0-6.0) 10/09/16 05:04 Whole Bld Lactic Acid 0.79 mmol/L (0.60-1.99) 10/02/16 14:50 Uric Acid 8.5 mg/dL (4.4-7.6) H 10/05/16 04:32 Calcium 9.3 mg/dL (8.6-10.3) 10/10/16 04:53 Phosphorus 4.7 mg/dL (2.5-5.0) 10/05/16 04:32 Magnesium 2.4 mg/dL (1.9-2.7) 10/05/16 04:32 Total Bilirubin 0.9 mg/dL (0.3-1.0) 10/10/16 04:53 AST 259 U/L (13-39) H 10/10/16 04:53 ALT 319 U/L (7-52) H 10/10/16 04:53 Alkaline Phosphatase 37 U/L (34-104) 10/10/16 04:53 Ammonia 39 umol/L (16-53) 10/08/16 05:04 Troponin I 4.63 ng/mL (0.01-0.05) H* D 10/10/16 04:53 B-Natriuretic Peptide 3840.0 pg/mL (5.0-100.0) H 10/09/16 05:04 Total Protein 6.5 gm/dL (6.0-8.3) 10/10/16 04:53 Albumin 3.1 gm/dL (4.2-5.5) L 10/10/16 04:53 Globulin 3.4 gm/dL 10/10/16 04:53 Albumin/Globulin Ratio 0.9 (1.0-1.8) L 10/10/16 04:53 Triglycerides 122 mg/dL (<150) 10/04/16 04:32 Cholesterol 132 mg/dL (<200) 10/04/16 04:32 LDL Cholesterol Direct 83 mg/dL (75-193) 10/04/16 04:32 HDL Cholesterol 33 mg/dL (23-92) 10/04/16 04:32 Free T4 1.14 ng/dL (0.82-1.77) 10/04/16 04:32 Free T3 1.4 pg/mL (2.0-4.4) L 10/04/16 04:32 TSH 1.79 uIU/ml (0.34-5.60) 10/04/16 04:32 Urine Source CLEAN C 10/07/16 09:30 Urine Color YELLOW 10/07/16 09:30 Urine Clarity SL. CLOUDY (CLEAR) 10/07/16 09:30 Urine pH 6.0 10/07/16 09:30 Ur Specific [place] (1.005-1.030) 10/07/16 09:30 Urine Protein 30 mg/dL (NEGATIVE) H 10/07/16 09:30 Urine Glucose (UA) NEGATIVE mg/dL (NEGATIVE) 10/07/16 09:30 Urine Ketones NEGATIVE mg/dL (NEGATIVE) 10/07/16 09:30 Urine Blood NEGATIVE (NEGATIVE) 10/07/16 09:30 Urine Nitrate NEGATIVE (NEGATIVE) 10/07/16 09:30 Urine Bilirubin NEGATIVE (NEGATIVE) 10/07/16 09:30 Urine Urobilinogen 0.2 E.U./dL (0.2 - 1.0) 10/07/16 09:30 Ur Leukocyte Esterase NEGATIVE (NEGATIVE) 10/07/16 09:30 Urine RBC NONE SEEN /hpf (0-5) 10/07/16 09:30 Urine WBC 0-2 /hpf (0-5) 10/07/16 09:30 Ur Epithelial Cells OCCASIONAL /lpf (FEW) 10/07/16 09:30 Amorphous Sediment MODERATE URATES (NONE SEEN) 10/03/16 04:10 Urine Bacteria OCCASIONAL /hpf (NONE SEEN) 10/07/16 09:30 Fine Granular Casts 0-2 /lpf (NONE SEEN) H 10/07/16 09:30 Urine Sperm FEW /hpf (NONE SEEN) 10/07/16 09:30 U Random Total Protein 43.0 mg/dL 10/06/16 05:30 Ur Random Sodium 30 mmol/L 10/04/16 14:52 Urine Collection Time 24 hours 10/06/16 05:30 Urine Total Volume 1300 ml 10/06/16 05:30 Urine Creatinine 113.2 mg/dl (Not Estab.) 10/04/16 14:52 Urine Microalbumin 84.6 ug/mL (Not Estab.) 10/04/16 14:52 Microalb/Creat Ratio 74.7 mg/g creat (0.0-30.0) H 10/04/16 14:52 U Tot Protein 24h, Calc 559.0 mg/24 hr (0-165) H 10/06/16 05:30 Vancomycin Trough 27.2 ug/mL (10-20) H 10/10/16 13:14 Coccidioides Ab Negative (Neg:<1:2) 10/07/16 04:39 Histoplasma Ab Imm Diff SEE REF. LAB REPORT 10/06/16 07:55 Histoplasma Antigen SEE REF. LAB REPORT 10/06/16 07:55 HIV 1&2 Antibody Screen NEGATIVE (NEG) 10/07/16 15:00 TB (QFT) Gold In Tube Indeterminate (Negative) H 10/07/16 18:30 TB Test (QFT) Mitogen 0.14 IU/mL 10/07/16 18:30 TB Test (QFT) Antigen 0.03 IU/mL 10/07/16 18:30 TB Test Antigen - Nil 0.00 IU/mL 10/07/16 18:30 TB Test TB - Nil 0.03 IU/mL 10/07/16 18:30 TB Test (QFT) Interp (()) 10/07/16 18:30 - Physical Exam Vitals and I&O: Vital Signs Temp 98.2 F 10/10/16 12:00 Pulse 88 10/10/16 15:03 Resp 23 10/10/16 15:03 BP 116/77 10/10/16 14:00 Pulse Ox 95 10/10/16 15:03 Intake & Output 10/09/16 10/10/16 10/10/16 18:59 06:59 18:59 Intake Total 150 400 Balance 150 400 Intake: Oral 150 400 Other: # Voids 3 4 Active Medications: Current Medications Acetaminophen (Tylenol) 650 mg PO Q4HR PRN PRN Reason: Fever > 101 Stop: 12/01/16 15:05 Acetaminophen/Hydrocodone Bitart ([place] 10 Mg/325 Mg) 1 tab PO Q4H PRN PRN Reason: Pain (Moderate) Stop: 12/09/16 05:24 Albuterol Sulfate (Albuterol 2.5mg/3ml Neb Ud) 2.5 mg HHN Q2HR PRN PRN Reason: Wheezing Stop: 12/01/16 15:05 Last Admin: 10/03/16 14:35 Dose: 2.5 mg Albuterol/Ipratropium (Duoneb Neb) 3 ml HHN [id number] [facility] Stop: 12/02/16 18:59 Last Admin: 10/10/16 15:01 Dose: 3 ml Aspirin (Aspirin Chewable) 81 mg PO DAILY [facility] Stop: 12/02/16 08:59 Last Admin: 10/10/16 08:24 Dose: 81 mg Atorvastatin Calcium (Lipitor) 10 mg PO DAILY [facility] PRN Reason: Protocol Stop: 12/03/16 08:59 Last Admin: 10/10/16 08:24 Dose: 10 mg Budesonide (Pulmicort) 1 mg HHN BIDRT [facility] Stop: 12/02/16 18:59 Last Admin: 10/10/16 07:15 Dose: 1 mg Carvedilol (Coreg) 3.125 mg PO DAILY [facility] Stop: 12/02/16 08:59 Last Admin: 10/10/16 08:23 Dose: 3.125 mg Furosemide (Lasix) 40 mg IVP DAILY [facility] Stop: 12/04/16 16:14 Last Admin: 10/10/16 08:21 Dose: 40 mg Heparin Sodium/Dextrose (Heparin Drip) 25,000 units in 250 mls @ 0 mls/hr IV TITR PRN; Protocol; Titrate PRN Reason: PROTOCOL Stop: 12/03/16 02:07 Last Admin: 10/10/16 00:54 Dose: 12 mls/hr Dextrose/Sodium Chloride (D5-0.9%Ns) 1,000 mls @ 30 mls/hr IV .Q24H [facility] Stop: 12/07/16 08:29 Vancomycin HCl 1 gm/ Sodium (Chloride) 250 mls @ 165 mls/hr IV Q36H [facility] Stop: 12/10/16 05:59 Ipratropium [place] (Atrovent Neb 0.5mg/2.5ml) 0.5 mg HHN Q2HR PRN PRN Reason: Wheezing Stop: 12/01/16 15:05 Last Admin: 10/03/16 14:35 Dose: 0.5 mg Lactobacillus Rhamnosus (Culturelle) 1 each PO DAILY [facility] Stop: 12/04/16 08:59 Last Admin: 10/10/16 08:25 Dose: 1 each Lactulose (Cephulac) 30 gm PO BID [facility] Stop: 12/04/16 16:59 Last Admin: 10/10/16 13:09 Dose: 30 gm Lorazepam (Ativan) 1 mg IVP Q4HR PRN; Protocol PRN Reason: Agitation Stop: 12/02/16 18:57 Last Admin: 10/03/16 21:56 Dose: 1 mg Methylprednisolone Sodium Succinate (Solu-Medrol) 40 mg IV Q4HR [facility] Stop: 12/02/16 15:59 Last Admin: 10/10/16 16:48 Dose: 40 mg Mirtazapine (Remeron) 15 mg PO HS [facility] PRN Reason: Protocol Stop: 12/01/16 20:59 Last Admin: 10/09/16 21:37 Dose: 15 mg Miscellaneous (Vte Chemical Prophylaxis Screen/ Admission) 1 ea PRN PRN PRN Reason: PROTOCOL Stop: 12/01/16 16:51 Miscellaneous (Heparin Drip Per Pharmacy) 1 ea PRN [facility] PRN Reason: Protocol Stop: 12/03/16 01:59 Miscellaneous (Probiotic Screen) 1 ea PRN PRN PRN Reason: PROTOCOL Stop: 12/04/16 08:41 Miscellaneous (Vancomycin Iv Per Pharmacy) 1 ea PRN [facility] Stop: 12/05/16 12:14 Mupirocin (Bactroban Oint) 1 appl TP BID [facility] Stop: 12/02/16 16:59 Last Admin: 10/10/16 16:55 Dose: 1 appl Nitroglycerin (Nitrostat) 0.4 mg SL Q5MIN PRN PRN Reason: Chest Pain Stop: 12/02/16 06:44 Last Admin: 10/03/16 10:31 Dose: 0.4 mg Pantoprazole Sodium (Protonix) 40 mg PO DAILY [facility] Stop: 12/02/16 07:29 Last Admin: 10/10/16 08:24 Dose: 40 mg Senna (Senna) 8.6 mg PO BID [facility] Stop: 12/01/16 16:59 Last Admin: 10/10/16 16:54 Dose: 8.6 mg General: Alert HEENT: Atraumatic Neck: Supple Cardiovascular: Regular rate Lungs: Normal air movement Abdomen: Bowel sounds, Soft Extremities: Edema (none) Psych/Mental Status: Other (lethargic) - Procedures Procedures: Procedures Procedure Code Date ASSISTANCE WITH RESPIRATORY VENTILATION, 24-96 HRS, CPAP [id number] 10/02/16 POS AIRWAY PRESSURE CPAP [id number] 10/02/16 Assessment/Plan - Problem List Patient Problems: All Active Problems Acute renal failure (Acute) SOB (Acute ~10/02/16) - Plan Plan: continue current treatment conservative theraphy Nutritional Asmnt/Malnutr-PDOC - Dietary Evaluation Malnutrition Findings (Please click <Entered> for more info): Nutritional Asmnt/Malnutrition Start: 10/07/16 15: 35 Text: Status: Complete Freq: Document 10/07/16 15:36 GSUN (Rec: 10/07/16 15:55 GSUN [id number]) Nutritional Asmnt/Malnutrition Patient General Information Diagnosis Progress note: pneumonia, sepsis vs leukocytosis Pertinent Medical Hx/Surgical Hx H&P: CHF, COPD, CAD, NE, muscle weakness, HTN, hyperlipidemia Subjective Information 71 year old male on bipap. Pt was alert and pleasant during visit, mouthed to RD "I can't talk much right now" due to bipap. P stated he has lost weight recently due to physical inactivity. RD observed breakfast tray untouched. Spoek to RN, RN stated pt is not a breakfast person, ate 75% dinner last night. Avg PO intake <30% of meals, not meeting nutritional needs. Current Diet Order/ Nutrition Support Cardiac Pertinent Medications Lipitor, Lasix, Culturelle, Cephulac, Solu-Medrol, Remeron , Vancomycin, Protonix, Senna Pertinent Labs 10/07: BUN 50H, creatinine 1.5H , glucose 143H, BNP 3100H Nutritional Hx/Data Height 1.78 m Height (Calculated Centimeters) 177.8 Current Weight (lbs) 75.07 kg Weight (Calculated Kilograms) 75.1 Weight (Calculated Grams) 22686.5 [place] Body Weight 166lb Weight Status Approriate GI Symptoms Skin Integrity/Comment: Harjit 12. container maker: pressure area coccyx Current %PO Negligible < 25% Estimated Nutritional Goals BEE in Kcals: Using Current wt Calories/Kcals/Kg CBW 165.5lb/75kg Kcals Calculated 2250-2625kcal (25-30kcal/kg) Protein: Using Current wt Protein g/kg: CBW Protein Calculated 75-113g (1-1.5g/kg) Fluid: ml 2250-2625ml (1ml/kcal) Nutritional Problem 1. Problem Problem Increased kcal and prot needs related to Etiology hypermetabolic state, pt report recent weight loss aeb Signs/Symptoms: pneumonia, sepsis vs leukocytosis, malnutrition per progress note Intervention/Recommendation Comments 1. Continue with cardiac diet. PO intake is suboptimal since adm. Continue to encourage PO intake and assist with meals. 2. Recommend Novasource Renal TID. 3. Monitor weight. Expected Outcomes/Goals Expected Outcomes/Goals 1. PO intake to meet 100% of estimated nutritional needs.
--- NOTE | 2016-10-10 23:52 | Infectious Disease Prog Note ---
Infectious Disease Subjective - Review of Systems Service Date: 10/10/16 Subjective: patient is desturating.on bipap. Infectious Disease Objective - Results Result Diagrams: 10/10/16 13:14 10/10/16 04:53 Recent Labs: Laboratory Last Values WBC 18.9 Th/cmm (4.8-10.8) H 10/10/16 13:14 RBC 2.98 Mil/cmm (3.80-5.80) L 10/10/16 13:14 Hgb 9.4 gm/dL (12.6-17.4) L 10/10/16 13:14 Hct 28.4 % (39.0-49.0) L 10/10/16 13:14 MCV 95.3 fl (80-99) 10/10/16 13:14 MCH 31.6 pg (27.0-31.0) H 10/10/16 13:14 MCHC Differential 33.2 pg (28.0-36.0) 10/10/16 13:14 RDW 18.1 % (11.5-20.0) 10/10/16 13:14 Plt Count 144 Th/cmm (150-400) L D 10/10/16 13:14 MPV 8.7 fl 10/10/16 13:14 Neutrophils % SPECIAL EFFECTS SPECIALIST 10/09/16 05:04 Band Neutrophils % 7 % (0-10) 10/10/16 13:14 Lymphocytes % SPECIAL EFFECTS SPECIALIST 10/09/16 05:04 Monocytes % SPECIAL EFFECTS SPECIALIST 10/09/16 05:04 Eosinophils % 0.2 % (0.0-5.0) 10/03/16 06:36 Basophils % 0.4 % (0.0-2.0) 10/03/16 06:36 Neutrophils (Manual) 86 % (40-80) H 10/10/16 13:14 Lymphocytes 4 % (20-50) L 10/10/16 13:14 Monocytes 3 % (2-10) 10/10/16 13:14 Eosinophils 0 % (0-5) 10/10/16 13:14 Basophils 0 % (0-3) 10/10/16 13:14 Metamyelocytes 1 % (0-0) H 10/09/16 05:04 Platelet Estimate ADEQUATE (NORMAL) 10/10/16 13:14 Platelet Morphology PLATELET CLUMPS SEEN (NORMAL) 10/10/16 13:14 Anisocytosis 1+ 10/09/16 05:04 RBC Morph Micro Appear NORMAL (NORMAL) 10/10/16 13:14 Eos Smear Source URINE 10/04/16 14:52 Eos Smear Total Cells NONE SEEN (NONE SEEN) 10/04/16 14:52 PT 10.2 SECONDS (9.5-11.5) 10/04/16 02:03 INR 0.98 (0.5-1.4) 10/04/16 02:03 PTT (Actin FS) 69.4 SECONDS (26.0-38.0) H 10/10/16 13:14 Specimen Source ARTERIAL 10/09/16 08:05 Sample Site Right Radial 10/09/16 08:05 pH 7.34 (7.35-7.45) L 10/09/16 08:05 pCO2 68.0 mmHg (35.0-45.0) H* 10/09/16 08:05 pO2 66.0 mmHg (80.0-100.0) L 10/09/16 08:05 HCO3 31.5 mEq/L (20.0-26.0) H 10/09/16 08:05 Base Excess 8.6 mEq/L (-3.0-3.0) H 10/09/16 08:05 O2 Saturation 91.0 % (92.0-100.0) L 10/09/16 08:05 Simon Test Positive 10/09/16 08:05 Vent Rate 12 10/09/16 08:05 Inspired O2 50 10/09/16 08:05 Tidal Volume 350 10/09/16 08:05 PEEP N/A 10/09/16 08:05 Pressure (ins/psv/peep) N/A 10/09/16 08:05 Critical Value MMIRANDA 10/09/16 08:05 Sodium 142 mEq/L (136-145) 10/10/16 04:53 Potassium 4.8 mEq/L (3.5-5.1) 10/10/16 04:53 Chloride 102 mEq/L (98-107) 10/10/16 04:53 Carbon Dioxide 32.8 mEq/L (21.0-31.0) H 10/10/16 04:53 Anion Gap 12.0 (7.0-16.0) 10/10/16 04:53 BUN 75 mg/dL (7-25) H 10/10/16 04:53 Creatinine 1.8 mg/dL (0.7-1.3) H 10/10/16 04:53 Est GFR ( Amer) TNP 10/10/16 04:53 Est GFR (Non-Af Amer) TNP 10/10/16 04:53 BUN/Creatinine Ratio 41.7 10/10/16 04:53 Glucose 161 mg/dL (70-105) H 10/10/16 04:53 Hemoglobin A1c % 5.3 % (4.0-6.0) 10/09/16 05:04 Whole Bld Lactic Acid 0.79 mmol/L (0.60-1.99) 10/02/16 14:50 Uric Acid 8.5 mg/dL (4.4-7.6) H 10/05/16 04:32 Calcium 9.3 mg/dL (8.6-10.3) 10/10/16 04:53 Phosphorus 4.7 mg/dL (2.5-5.0) 10/05/16 04:32 Magnesium 2.4 mg/dL (1.9-2.7) 10/05/16 04:32 Total Bilirubin 0.9 mg/dL (0.3-1.0) 10/10/16 04:53 AST 259 U/L (13-39) H 10/10/16 04:53 ALT 319 U/L (7-52) H 10/10/16 04:53 Alkaline Phosphatase 37 U/L (34-104) 10/10/16 04:53 Ammonia 39 umol/L (16-53) 10/08/16 05:04 Troponin I 4.63 ng/mL (0.01-0.05) H* D 10/10/16 04:53 B-Natriuretic Peptide 3840.0 pg/mL (5.0-100.0) H 10/09/16 05:04 Total Protein 6.5 gm/dL (6.0-8.3) 10/10/16 04:53 Albumin 3.1 gm/dL (4.2-5.5) L 10/10/16 04:53 Globulin 3.4 gm/dL 10/10/16 04:53 Albumin/Globulin Ratio 0.9 (1.0-1.8) L 10/10/16 04:53 Triglycerides 122 mg/dL (<150) 10/04/16 04:32 Cholesterol 132 mg/dL (<200) 10/04/16 04:32 LDL Cholesterol Direct 83 mg/dL (75-193) 10/04/16 04:32 HDL Cholesterol 33 mg/dL (23-92) 10/04/16 04:32 Free T4 1.14 ng/dL (0.82-1.77) 10/04/16 04:32 Free T3 1.4 pg/mL (2.0-4.4) L 10/04/16 04:32 TSH 1.79 uIU/ml (0.34-5.60) 10/04/16 04:32 Urine Source CLEAN C 10/07/16 09:30 Urine Color YELLOW 10/07/16 09:30 Urine Clarity SL. CLOUDY (CLEAR) 10/07/16 09:30 Urine pH 6.0 10/07/16 09:30 Ur Specific [place] (1.005-1.030) 10/07/16 09:30 Urine Protein 30 mg/dL (NEGATIVE) H 10/07/16 09:30 Urine Glucose (UA) NEGATIVE mg/dL (NEGATIVE) 10/07/16 09:30 Urine Ketones NEGATIVE mg/dL (NEGATIVE) 10/07/16 09:30 Urine Blood NEGATIVE (NEGATIVE) 10/07/16 09:30 Urine Nitrate NEGATIVE (NEGATIVE) 10/07/16 09:30 Urine Bilirubin NEGATIVE (NEGATIVE) 10/07/16 09:30 Urine Urobilinogen 0.2 E.U./dL (0.2 - 1.0) 10/07/16 09:30 Ur Leukocyte Esterase NEGATIVE (NEGATIVE) 10/07/16 09:30 Urine RBC NONE SEEN /hpf (0-5) 10/07/16 09:30 Urine WBC 0-2 /hpf (0-5) 10/07/16 09:30 Ur Epithelial Cells OCCASIONAL /lpf (FEW) 10/07/16 09:30 Amorphous Sediment MODERATE URATES (NONE SEEN) 10/03/16 04:10 Urine Bacteria OCCASIONAL /hpf (NONE SEEN) 10/07/16 09:30 Fine Granular Casts 0-2 /lpf (NONE SEEN) H 10/07/16 09:30 Urine Sperm FEW /hpf (NONE SEEN) 10/07/16 09:30 U Random Total Protein 43.0 mg/dL 10/06/16 05:30 Ur Random Sodium 30 mmol/L 10/04/16 14:52 Urine Collection Time 24 hours 10/06/16 05:30 Urine Total Volume 1300 ml 10/06/16 05:30 Urine Creatinine 113.2 mg/dl (Not Estab.) 10/04/16 14:52 Urine Microalbumin 84.6 ug/mL (Not Estab.) 10/04/16 14:52 Microalb/Creat Ratio 74.7 mg/g creat (0.0-30.0) H 10/04/16 14:52 U Tot Protein 24h, Calc 559.0 mg/24 hr (0-165) H 10/06/16 05:30 Vancomycin Trough 27.2 ug/mL (10-20) H 10/10/16 13:14 Coccidioides Ab Negative (Neg:<1:2) 10/07/16 04:39 Histoplasma Ab Imm Diff SEE REF. LAB REPORT 10/06/16 07:55 Histoplasma Antigen SEE REF. LAB REPORT 10/06/16 07:55 HIV 1&2 Antibody Screen NEGATIVE (NEG) 10/07/16 15:00 TB (QFT) Gold In Tube Indeterminate (Negative) H 10/07/16 18:30 TB Test (QFT) Mitogen 0.14 IU/mL 10/07/16 18:30 TB Test (QFT) Antigen 0.03 IU/mL 10/07/16 18:30 TB Test Antigen - Nil 0.00 IU/mL 10/07/16 18:30 TB Test TB - Nil 0.03 IU/mL 10/07/16 18:30 TB Test (QFT) Interp (()) 10/07/16 18:30 - Physical Exam Vitals and I&O: Vital Signs Temp 98.2 F 10/10/16 16:00 Pulse 97 10/10/16 20:04 Resp 22 10/10/16 22:49 BP 116/79 10/10/16 18:00 Pulse Ox 92 10/10/16 22:49 Intake & Output 10/10/16 10/10/16 10/11/16 06:59 18:59 06:59 Intake Total 400 240 Balance 400 240 Intake: Oral 400 240 Other: # Voids 4 3 # Bowel Movements 0 Active Medications: Current Medications Acetaminophen (Tylenol) 650 mg PO Q4HR PRN PRN Reason: Fever > 101 Stop: 12/01/16 15:05 Acetaminophen/Hydrocodone Bitart ([place] 10 Mg/325 Mg) 1 tab PO Q4H PRN PRN Reason: Pain (Moderate) Stop: 12/09/16 05:24 Last Admin: 10/10/16 21:51 Dose: 1 tab Albuterol Sulfate (Albuterol 2.5mg/3ml Neb Ud) 2.5 mg HHN Q2HR PRN PRN Reason: Wheezing Stop: 12/01/16 15:05 Last Admin: 10/03/16 14:35 Dose: 2.5 mg Albuterol/Ipratropium (Duoneb Neb) 3 ml HHN [id number] [facility] Stop: 12/02/16 18:59 Last Admin: 10/10/16 19:06 Dose: 3 ml Aspirin (Aspirin Chewable) 81 mg PO DAILY [facility] Stop: 12/02/16 08:59 Last Admin: 10/10/16 08:24 Dose: 81 mg Atorvastatin Calcium (Lipitor) 10 mg PO DAILY [facility] PRN Reason: Protocol Stop: 12/03/16 08:59 Last Admin: 10/10/16 08:24 Dose: 10 mg Budesonide (Pulmicort) 1 mg HHN BIDRT [facility] Stop: 12/02/16 18:59 Last Admin: 10/10/16 19:07 Dose: 1 mg Carvedilol (Coreg) 3.125 mg PO DAILY [facility] Stop: 12/02/16 08:59 Last Admin: 10/10/16 08:23 Dose: 3.125 mg Furosemide (Lasix) 40 mg IVP DAILY [facility] Stop: 12/04/16 16:14 Last Admin: 10/10/16 08:21 Dose: 40 mg Heparin Sodium/Dextrose (Heparin Drip) 25,000 units in 250 mls @ 0 mls/hr IV TITR PRN; Protocol; Titrate PRN Reason: PROTOCOL Stop: 12/03/16 02:07 Last Admin: 10/10/16 00:54 Dose: 12 mls/hr Dextrose/Sodium Chloride (D5-0.9%Ns) 1,000 mls @ 30 mls/hr IV .Q24H [facility] Stop: 12/07/16 08:29 Vancomycin HCl 1 gm/ Sodium (Chloride) 250 mls @ 165 mls/hr IV Q36H [facility] Stop: 12/10/16 05:59 Ipratropium [place] (Atrovent Neb 0.5mg/2.5ml) 0.5 mg HHN Q2HR PRN PRN Reason: Wheezing Stop: 12/01/16 15:05 Last Admin: 10/03/16 14:35 Dose: 0.5 mg Lactobacillus Rhamnosus (Culturelle) 1 each PO DAILY [facility] Stop: 12/04/16 08:59 Last Admin: 10/10/16 08:25 Dose: 1 each Lactulose (Cephulac) 30 gm PO BID [facility] Stop: 12/04/16 16:59 Last Admin: 10/10/16 13:09 Dose: 30 gm Lorazepam (Ativan) 1 mg IVP Q4HR PRN; Protocol PRN Reason: Agitation Stop: 12/02/16 18:57 Last Admin: 10/03/16 21:56 Dose: 1 mg Methylprednisolone Sodium Succinate (Solu-Medrol) 40 mg IV Q4HR [facility] Stop: 12/02/16 15:59 Last Admin: 10/10/16 21:25 Dose: 40 mg Mirtazapine (Remeron) 15 mg PO HS [facility] PRN Reason: Protocol Stop: 12/01/16 20:59 Last Admin: 10/10/16 21:51 Dose: 15 mg Miscellaneous (Vte Chemical Prophylaxis Screen/ Admission) 1 ea PRN PRN PRN Reason: PROTOCOL Stop: 12/01/16 16:51 Miscellaneous (Heparin Drip Per Pharmacy) 1 ea PRN [facility] PRN Reason: Protocol Stop: 12/03/16 01:59 Miscellaneous (Probiotic Screen) 1 ea PRN PRN PRN Reason: PROTOCOL Stop: 12/04/16 08:41 Miscellaneous (Vancomycin Iv Per Pharmacy) 1 ea MC PRN [facility] Stop: 12/05/16 12:14 Mupirocin (Bactroban Oint) 1 appl TP BID [facility] Stop: 12/02/16 16:59 Last Admin: 10/10/16 16:55 Dose: 1 appl Nitroglycerin (Nitrostat) 0.4 mg SL Q5MIN PRN PRN Reason: Chest Pain Stop: 12/02/16 06:44 Last Admin: 10/03/16 10:31 Dose: 0.4 mg Pantoprazole Sodium (Protonix) 40 mg PO DAILY [facility] Stop: 12/02/16 07:29 Last Admin: 10/10/16 08:24 Dose: 40 mg Senna (Senna) 8.6 mg PO BID [facility] Stop: 12/01/16 16:59 Last Admin: 10/10/16 16:54 Dose: 8.6 mg General: no acute distress, well developed, well nourished HEENT: atraumatic, normocephalic, PERRLA Neck: supple Cardiovascular: S1S2, regular Lungs: clear to auscultation bilaterally, clear to percussion Abdomen: soft, no tender, no distended Extremities: no cyanosis, no clubbing, no edema Neurological: awake, alert, other (confused.) - Procedures Procedures: Procedures Procedure Code Date ASSISTANCE WITH RESPIRATORY VENTILATION, 24-96 HRS, CPAP [id number] 10/02/16 POS AIRWAY PRESSURE CPAP 79966 10/02/16 Infectious Disease Assmt/Plan - Problem List Patient Problems: All Active Problems Acute renal failure (Acute) SOB (Acute ~10/02/16) - Assessment Assessment: Impression: 1. RUL cavitary lesion. ( Necrotic debris). Cocci negative. 2. Pneumonia. 3. Leukocytosis. Recommendations: Continue same treatment follow the labs. Antibiotic wilcox continue vanco IV and add zosyn. Nutritional Asmnt/Malnutr-PDOC - Dietary Evaluation Malnutrition Findings (Please click <Entered> for more info): Nutritional Asmnt/Malnutrition Start: 10/07/16 15: 35 Text: Status: Complete Freq: Document 10/07/16 15:36 GSUN (Rec: 10/07/16 15:55 GSUN [id number]) Nutritional Asmnt/Malnutrition Patient General Information Diagnosis Progress note: pneumonia, sepsis vs leukocytosis Pertinent Medical Hx/Surgical Hx H&P: CHF, COPD, CAD, IN, muscle weakness, HTN, hyperlipidemia Subjective Information 71 year old male on bipap. Pt was alert and pleasant during visit, mouthed to RD "I can't talk much right now" due to bipap. P stated he has lost weight recently due to physical inactivity. RD observed breakfast tray untouched. Spoek to RN, RN stated pt is not a breakfast person, ate 75% dinner last night. Avg PO intake <30% of meals, not meeting nutritional needs. Current Diet Order/ Nutrition Support Cardiac Pertinent Medications Lipitor, Lasix, Culturelle, Cephulac, Solu-Medrol, Remeron , Vancomycin, Protonix, Senna Pertinent Labs 10/07: BUN 50H, creatinine 1.5H , glucose 143H, BNP 3100H Nutritional Hx/Data Height 1.78 m Height (Calculated Centimeters) 177.8 Current Weight (lbs) 75.07 kg Weight (Calculated Kilograms) 75.1 Weight (Calculated Grams) 03240.5 [place] Body Weight 166lb Weight Status Approriate GI Symptoms Skin Integrity/Comment: Harjit 12. director of assessment: pressure area coccyx Current %PO Negligible < 25% Estimated Nutritional Goals BEE in Kcals: Using Current wt Calories/Kcals/Kg CBW 165.5lb/75kg Kcals Calculated 2250-2625kcal (25-30kcal/kg) Protein: Using Current wt Protein g/kg: CBW Protein Calculated 75-113g (1-1.5g/kg) Fluid: ml 2250-2625ml (1ml/kcal) Nutritional Problem 1. Problem Problem Increased kcal and prot needs related to Etiology hypermetabolic state, pt report recent weight loss aeb Signs/Symptoms: pneumonia, sepsis vs leukocytosis, malnutrition per progress note Intervention/Recommendation Comments 1. Continue with cardiac diet. PO intake is suboptimal since adm. Continue to encourage PO intake and assist with meals. 2. Recommend Novasource Renal TID. 3. Monitor weight. Expected Outcomes/Goals Expected Outcomes/Goals 1. PO intake to meet 100% of estimated nutritional needs.
[2016-10-11] MEDS: methylPREDNISolone SS 40 mg Vial IV SCH ×6 (01:45→21:34)
[2016-10-11 05:08] LABS: HEMATOCRIT 27.9 % (39.0-49.0); HEMOGLOBIN 9.2 gm/dL (12.6-17.4); MEAN CELL VOLUME 96.8 fl (80-99); MEAN CORPUSCULAR HEMOGLOBIN 31.8 pg (27.0-31.0); MEAN CORPUSCULAR HGB CONC 32.9 pg (28.0-36.0); MEAN PLATELET VOLUME 9.4 fl; PLATELET COUNT 152 Th/cmm (150-400); RED BLOOD COUNT 2.88 Mil/cmm (3.80-5.80); RED CELL DISTRIBUTION WIDTH 18.3 % (11.5-20.0)
[2016-10-11 05:13] LABS: WHITE BLOOD COUNT 22.1 Th/cmm (4.8-10.8)
[2016-10-11 05:23] LABS: ALKALINE PHOSPHATASE 39 U/L (34-104); ANION GAP 10.4 (7.0-16.0); BILIRUBIN,TOTAL 0.9 mg/dL (0.3-1.0); BUN/CREATININE RATIO 40.9; CARBON DIOXIDE 32.4 mEq/L (21.0-31.0); CHLORIDE 106 mEq/L (98-107); CREATININE - SERUM 2.2 mg/dL (0.7-1.3); GLUCOSE 205 mg/dL (70-105); POTASSIUM SERUM 4.8 mEq/L (3.5-5.1); SGOT 98 U/L (13-39); SGPT/ALT 473 U/L (7-52); SODIUM SERUM 144 mEq/L (136-145)
[2016-10-11 05:25] LABS: TROP I 5.13 ng/mL (0.01-0.05)
[2016-10-11 05:30] LABS: BUN - UREA NITROGEN 90 mg/dL (7-25)
[2016-10-11 05:40] LABS: TOTAL CELLS COUNTED 100
[2016-10-11 05:41] LABS: BAND NEUTROPHILE 4 % (0-10); EOSINOPHIL 1 % (0-5); NEUTROPHILS 93 % (40-80); OVALOCYTES 1+; PLATELET ESTIMATE ADEQUATE (NORMAL)
[2016-10-11 07:18] LABS: PROTHROMBIN TIME (TEST) 12.1 SECONDS (9.5-11.5)
[2016-10-11 07:19] LABS: INR 1.15 (0.5-1.4)
[2016-10-11] MEDS: Albuterol/Ipratropium Neb 3 ML AERS HHN SCH ×4 (07:31→18:59)
[2016-10-11] MEDS: Budesonide 0.5 Mg/2 mL Ud HHN SCH ×2 (07:32→18:59)
[2016-10-11 08:32] LABS: pH 7.16 (7.35-7.45)
[2016-10-11 08:33] LABS: ABG SOURCE Arterial; ALLEN TEST PASS; BE(B) 2.7 mEq/L (-3.0-3.0); FIO2 100; HCO3 27.1 mEq/L (20.0-26.0); MECH RATE 12; MECH VT 350
[2016-10-11 08:34] LABS: CRITICAL VALUES REPORTED BY PW
[2016-10-11] MEDS: Aspirin 81mg Chewable Tab PO SCH (09:00)
[2016-10-11] MEDS: Atorvastatin Calcium 10 MG TAB PO SCH (09:00)
[2016-10-11] MEDS: Lactobacillus Rhamnosus 10 Billion CFU Capsule PO SCH (09:00)
[2016-10-11] MEDS: Pantoprazole 40 mg EC Tab PO SCH (09:00)
[2016-10-11] MEDS: Lactulose 10 Gm/15 mL 30mL UDC PO SCH (09:05)
--- NOTE | 2016-10-11 09:21 | Diagnostic Imaging Report ---
Portable chest x-ray HISTORY: Pneumonia Compared with the prior exam of October 10, 2016, no change in severe diffuse bilateral interstitial infiltrates. The findings correspond to extensive chronic changes noted on a prior CT scan of October 02, 2016. Somewhat more focal pleural and parenchymal density that projects over the right lower hemithorax which also corresponds to changes noted on the earlier CT scan. Right apical pleural thickening seen. IMPRESSION: 1. No significant change in the pulmonary status as noted above.
--- NOTE | 2016-10-11 09:47 | Progress Notes ---
PULMONARY PROGRESS NOTE PROBLEM LIST: 1. Acute respiratory failure. 2. 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 3. Bronchiectasis. 4. Chronic obstructive pulmonary disease. 5. Status post previous lung resection. 6. Bilateral interstitial pneumonitis as well. SYMPTOMS: Nil. The patient is still on BiPAP and does not like to leave off the BiPAP. Unfortunately, still quite anorexic and no respiratory distress. PHYSICAL EXAMINATION: VITAL SIGNS: The patient's temperature is 98, heart rate is in 80s, respiration rate is in low 20s, and saturation is 95 on 50% with BiPAP. NECK: Veins not visualized. CHEST: Shows scattered rales and rhonchi bilaterally with diminished air entry. HEART: Regular. ABDOMEN: Soft and nontender. EXTREMITIES: Shows slight trace of peripheral edema. There are a lot of ecchymosis areas on the right upper hand. LAB DATA: White count is 18,900. Platelet is 144,000, slightly lower than before, and PTT is on the higher side, and the patient's chest x-ray shows still extensive interstitial changes, probably on the left lung, right lung seems to be not much change. ASSESSMENT: 1. The patient is doing poorly with persistent respiratory failure with possibly suspect Aspergillosis. 2. Right lower lobe pneumonia, possibly now on the right side. PLANS AND SUGGESTIONS: 1. Discussed with the patient's sister who is a durable power of family law attorney and two daughters. He needs to start eating, as consideration of NG tube, he refuses. 2. Possibility of consideration of PICC line should be entertained with TPN and we will decide again with family as to how much aggressive they want to be as with the nutrition, etc., and go from there. JOB# [id number]
[2016-10-11] MEDS ORDERED: Midazolam 1mg/ml 2 ml vial IV ONE ×2 (15:01→15:23)
[2016-10-11] MEDS ORDERED: methylPREDNISolone SS 40 mg Vial ONE ×3 (21:30→21:31)
[2016-10-12] MEDS: methylPREDNISolone SS 40 mg Vial IV SCH ×6 (00:15→20:23)
[2016-10-12 05:06] LABS: MEAN CELL VOLUME 95.2 fl (80-99); MEAN CORPUSCULAR HEMOGLOBIN 31.8 pg (27.0-31.0); MEAN CORPUSCULAR HGB CONC 33.4 pg (28.0-36.0); MEAN PLATELET VOLUME 8.8 fl; RED BLOOD COUNT 2.52 Mil/cmm (3.80-5.80); RED CELL DISTRIBUTION WIDTH 17.8 % (11.5-20.0); WHITE BLOOD COUNT 25.8 Th/cmm (4.8-10.8)
[2016-10-12 05:12] LABS: PLATELET COUNT 113 Th/cmm (150-400)
[2016-10-12 05:30] LABS: ALB/GLOB RATIO 1.1 (1.0-1.8); ALKALINE PHOSPHATASE 35 U/L (34-104); ANION GAP 9.9 (7.0-16.0); BUN/CREATININE RATIO 45.5; CALCIUM SERUM 8.6 mg/dL (8.6-10.3); CARBON DIOXIDE 32.2 mEq/L (21.0-31.0); CHLORIDE 108 mEq/L (98-107); CREATININE - SERUM 2.2 mg/dL (0.7-1.3); GLUCOSE 170 mg/dL (70-105); POTASSIUM SERUM 4.1 mEq/L (3.5-5.1); SGOT 38 U/L (13-39); SGPT/ALT 307 U/L (7-52); SODIUM SERUM 146 mEq/L (136-145)
[2016-10-12 05:34] LABS: BUN - UREA NITROGEN 100 mg/dL (7-25)
[2016-10-12 05:44] LABS: TROP I 6.01 ng/mL (0.01-0.05)
[2016-10-12] MEDS: Albuterol/Ipratropium Neb 3 ML AERS HHN SCH ×5 (06:39→23:06)
[2016-10-12 07:54] LABS: INR 1.16 (0.5-1.4); PROTHROMBIN TIME (TEST) 12.2 SECONDS (9.5-11.5)
[2016-10-12] MEDS: Aspirin 81mg Chewable Tab PO SCH (08:38)
[2016-10-12] MEDS: Atorvastatin Calcium 10 MG TAB PO SCH (08:38)
[2016-10-12] MEDS: Pantoprazole 40 mg EC Tab PO SCH (08:38)
[2016-10-12] MEDS: Lactobacillus Rhamnosus 10 Billion CFU Capsule PO SCH (08:38)
[2016-10-12] MEDS: Lactulose 10 Gm/15 mL 30mL UDC PO SCH ×2 (08:39→16:53)
[2016-10-12] MEDS: Linezolid 600mg/300mL 600 MG/300 ML BAG IV SCH ×2 (08:40→20:24)
[2016-10-12 09:11] LABS: ANISOCYTOSIS 1+; BAND NEUTROPHILE 11 % (0-10); NEUTROPHILS 83 % (40-80); PLATELET ESTIMATE DECREASED PLATELETS (NORMAL); PLATELET MORPHOLOGY NORMAL (NORMAL); TOTAL CELLS COUNTED 100
[2016-10-12 09:26] LABS: pH 7.36 (7.35-7.45)
[2016-10-12 09:27] LABS: BE(B) 6.7 mEq/L (-3.0-3.0); HCO3 30.1 mEq/L (20.0-26.0)
[2016-10-12 09:28] LABS: ABG SOURCE Arterial; FIO2 100; MECH RATE 12; MECH VT 400
[2016-10-12 09:29] LABS: CRITICAL VALUES REPORTED BY CS
--- NOTE | 2016-10-12 09:57 | Diagnostic Imaging Report ---
CHEST X-RAY: AP view INDICATION: ET tube placement COMPARISON: Chest x-ray earlier the same day at 8:31 AM FINDINGS: ET tube is in place with tip 3 cm above the Farzaneh. Extensive chronic lung changes are seen with superimposed infiltrates right greater than left with right effusion. Cardiomegaly is noted. IMPRESSION: ET tube with tip 3 cm above the Farzaneh. Extensive chronic lung changes with superimposed infiltrates right greater than left with right pleural effusion.
--- NOTE | 2016-10-12 10:00 | Diagnostic Imaging Report ---
CHEST X-RAY: AP view INDICATION: NG tube placement COMPARISON: Chest x-ray earlier the same day at 15:47 FINDINGS: ET tube is stable. Left PICC line is seen with tip in the cavoatrial junction. NG tube is in place with tip in the stomach. Diffuse pulmonary infiltrates are seen right greater than left with bilateral effusions right greater the left. Cardiomegaly is noted. IMPRESSION: NG tube within the stomach. Left PICC line with tip in the cavoatrial junction. Diffuse pulmonary infiltrates with bilateral effusions right greater than left.
--- NOTE | 2016-10-12 10:04 | Diagnostic Imaging Report ---
CHEST X-RAY: AP view INDICATION: Pneumonia COMPARISON: 10/11/2016 at 20:40 FINDINGS: ET tube is seen with tip appears to be just above the amado. Remaining support devices are stable. Bilateral infiltrates are noted right greater than left with right effusion. Cardiomegaly is noted. Cardiomegaly is noted. IMPRESSION: ET tube with tip appears to be just above the Am[place]. Recommend 1 to 2 cm pullback Persistent pulmonary infiltrates, right greater than left, with right effusion.
--- NOTE | 2016-10-12 11:13 | Progress Notes ---
PULMONARY PROGRESS NOTE PROBLEM LIST: 1. Acute respiratory failure. 2. Bilateral pneumonia. 3. Chronic obstructive pulmonary disease. 4. 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 SYMPTOMS: The patient is quite lethargic, has been on BiPAP. Now blood pressure is on lower side and started on Levophed. PHYSICAL EXAMINATION: VITAL SIGNS: Temperature is 98, pulse is 77, blood pressure 90/60, saturation 98%. ENT: Shows no new changes. CHEST: Shows diminished air entry with occasional rhonchi. HEART: Regular. ABDOMEN: Soft, nontender. Slightly distended. LABORATORY DATA: White count is 22.1, hemoglobin 9.2. ABG this morning shows severe respiratory acidemia. ASSESSMENT: The patient clinically appears to be stable, not much change, significant respiratory acidosis. PLANS AND SUGGESTIONS: We will go ahead and intubate the patient. Continue rest of other treatment, etc., and go from there. JOB# [id number]
[2016-10-12] MEDS: Budesonide 0.5 Mg/2 mL Ud HHN SCH ×2 (11:44→19:30)
--- NOTE | 2016-10-12 12:19 | Consultation ---
REFERRING PHYSICIAN: Dr. Benson. REASON FOR CONSULTATION: Thrombocytopenia, coagulopathy. HISTORY OF PRESENT ILLNESS: The patient is a 71-year-old male who is in the ICU. He is resident nursing facility. He was admitted because of shortness of breath, currently intubated on ventilator. The patient was found to have multiple lung infiltrates and is being treated for pneumonia. He is a known patient with cardiomyopathy. His ejection fraction is 20% on echo from this admission. He had persistent ____ and drop in platelet count, therefore, I was asked to evaluate. PAST MEDICAL HISTORY: Congestive heart failure, coronary artery disease, peripheral arterial disease, hypertension, COPD. PAST SURGICAL HISTORY: Hernia and partial resection of the lung. MEDICATIONS: Reviewed. PHYSICAL EXAMINATION: GENERAL: Intubated and sedated. VITAL SIGNS: Stable. HEENT: No active bleeding, nasogastric tube feeding. ABDOMEN: Soft. GENITOURINARY: Reeves catheter in place. No hematuria. EXTREMITIES: Edema and ecchymosis on both upper extremities. Edema and ecchymosis both lower extremities. LABORATORY DATA: White count of 5.8, hemoglobin 8, platelets 113. Ejection fraction 20%. Creatinine 2.2. CT scan of the chest done on October 02 showed emphysematous changes and cavitation/mass lesion in the right apex, possible necrotic mass and right lower lobe infiltrate ____ nodule throughout both lungs. The patient was previously on heparin, which was discontinued, presumably for the elevated troponins. ASSESSMENT: 1. Coagulopathy, status post heparin, now off of heparin. The coagulation panel is normal with INR 1.1 and PTT 28. 2. Low platelets, drug induced. There is no need to change the current medications. 3. Chronic kidney disease. 4. Cardiomyopathy with ejection fraction 20%. 5. Respiratory failure and pneumonia. I will obtain anemia workup and follow fibrinogen level and platelet count. The patient is on aspirin, which will be continued as long as the platelet count 150. Thank you for the opportunity to participate in the care of this interesting case. JOB# [id number]
--- NOTE | 2016-10-12 13:21 | General Progress Note ---
Subjective - Review of Systems Service Date: 10/12/16 Subjective: more awake today, on vent Objective - Results Result Diagrams: 10/12/16 04:50 10/12/16 04:50 Recent Labs: Laboratory Last Values WBC 25.8 Th/cmm (4.8-10.8) H* 10/12/16 04:50 RBC 2.52 Mil/cmm (3.80-5.80) L 10/12/16 04:50 Hgb 8.0 gm/dL (12.6-17.4) L D 10/12/16 04:50 Hct 24.0 % (39.0-49.0) L D 10/12/16 04:50 MCV 95.2 fl (80-99) 10/12/16 04:50 MCH 31.8 pg (27.0-31.0) H 10/12/16 04:50 MCHC Differential 33.4 pg (28.0-36.0) 10/12/16 04:50 RDW 17.8 % (11.5-20.0) 10/12/16 04:50 Plt Count 113 Th/cmm (150-400) L D 10/12/16 04:50 MPV 8.8 fl 10/12/16 04:50 Neutrophils % DAIRY AND FOOD LABORATORY ASSISTANT 10/09/16 05:04 Band Neutrophils % 11 % (0-10) H 10/12/16 04:50 Lymphocytes % DAIRY AND FOOD LABORATORY ASSISTANT 10/09/16 05:04 Monocytes % DAIRY AND FOOD LABORATORY ASSISTANT 10/09/16 05:04 Eosinophils % 0.2 % (0.0-5.0) 10/03/16 06:36 Basophils % 0.4 % (0.0-2.0) 10/03/16 06:36 Neutrophils (Manual) 83 % (40-80) H 10/12/16 04:50 Lymphocytes 3 % (20-50) L 10/12/16 04:50 Monocytes 3 % (2-10) 10/12/16 04:50 Eosinophils 1 % (0-5) 10/11/16 04:43 Basophils 0 % (0-3) 10/10/16 13:14 Metamyelocytes 1 % (0-0) H 10/09/16 05:04 Nucleated RBCs 1.0 % (0-0) H 10/12/16 04:50 Platelet Estimate DECREASED PLATELETS (NORMAL) 10/12/16 04:50 Platelet Morphology NORMAL (NORMAL) 10/12/16 04:50 Anisocytosis 1+ 10/12/16 04:50 Ovalocytes 1+ 10/11/16 04:43 RBC Morph Micro Appear ABNORMAL (NORMAL) 10/12/16 04:50 Eos Smear Source URINE 10/04/16 14:52 Eos Smear Total Cells NONE SEEN (NONE SEEN) 10/04/16 14:52 PT 12.2 SECONDS (9.5-11.5) H 10/12/16 04:50 INR 1.16 (0.5-1.4) 10/12/16 04:50 PTT (Actin FS) 28.1 SECONDS (26.0-38.0) 10/12/16 04:50 Fibrinogen 264.0 mg/dL (200.0-400.0) 10/12/16 04:50 Specimen Source Arterial 10/12/16 09:05 Sample Site RB 10/12/16 09:05 pH 7.36 (7.35-7.45) 10/12/16 09:05 pCO2 60.0 mmHg (35.0-45.0) H* 10/12/16 09:05 pO2 83.0 mmHg (80.0-100.0) 10/12/16 09:05 HCO3 30.1 mEq/L (20.0-26.0) H 10/12/16 09:05 Base Excess 6.7 mEq/L (-3.0-3.0) H 10/12/16 09:05 O2 Saturation 96.0 % (92.0-100.0) 10/12/16 09:05 Simon Test NA 10/12/16 09:05 Vent Rate 12 10/12/16 09:05 Inspired O2 100 10/12/16 09:05 Tidal Volume 400 10/12/16 09:05 PEEP 3 10/12/16 09:05 Pressure (ins/psv/peep) NA 10/12/16 09:05 Critical Value CS 10/12/16 09:05 Sodium 146 mEq/L (136-145) H 10/12/16 04:50 Potassium 4.1 mEq/L (3.5-5.1) 10/12/16 04:50 Chloride 108 mEq/L (98-107) H 10/12/16 04:50 Carbon Dioxide 32.2 mEq/L (21.0-31.0) H 10/12/16 04:50 Anion Gap 9.9 (7.0-16.0) 10/12/16 04:50 BUN 100 mg/dL (7-25) H* 10/12/16 04:50 Creatinine 2.2 mg/dL (0.7-1.3) H 10/12/16 04:50 Est GFR ( Amer) TNP 10/12/16 04:50 Est GFR (Non-Af Amer) TNP 10/12/16 04:50 BUN/Creatinine Ratio 45.5 10/12/16 04:50 Glucose 170 mg/dL (70-105) H 10/12/16 04:50 Hemoglobin A1c % 5.3 % (4.0-6.0) 10/09/16 05:04 Whole Bld Lactic Acid 0.79 mmol/L (0.60-1.99) 10/02/16 14:50 Uric Acid 8.5 mg/dL (4.4-7.6) H 10/05/16 04:32 Calcium 8.6 mg/dL (8.6-10.3) 10/12/16 04:50 Phosphorus 4.7 mg/dL (2.5-5.0) 10/05/16 04:32 Magnesium 2.4 mg/dL (1.9-2.7) 10/05/16 04:32 Total Bilirubin 1.0 mg/dL (0.3-1.0) 10/12/16 04:50 AST 38 U/L (13-39) 10/12/16 04:50 ALT 307 U/L (7-52) H 10/12/16 04:50 Alkaline Phosphatase 35 U/L (34-104) 10/12/16 04:50 Ammonia 39 umol/L (16-53) 10/08/16 05:04 Troponin I 6.01 ng/mL (0.01-0.05) H* D 10/12/16 04:50 B-Natriuretic Peptide 2250.0 pg/mL (5.0-100.0) H 10/12/16 04:50 Total Protein 5.6 gm/dL (6.0-8.3) L 10/12/16 04:50 Albumin 2.9 gm/dL (4.2-5.5) L 10/12/16 04:50 Globulin 2.7 gm/dL 10/12/16 04:50 Albumin/Globulin Ratio 1.1 (1.0-1.8) 10/12/16 04:50 Triglycerides 122 mg/dL (<150) 10/04/16 04:32 Cholesterol 132 mg/dL (<200) 10/04/16 04:32 LDL Cholesterol Direct 83 mg/dL (75-193) 10/04/16 04:32 HDL Cholesterol 33 mg/dL (23-92) 10/04/16 04:32 Free T4 1.14 ng/dL (0.82-1.77) 10/04/16 04:32 Free T3 1.4 pg/mL (2.0-4.4) L 10/04/16 04:32 TSH 1.79 uIU/ml (0.34-5.60) 10/04/16 04:32 Urine Source CLEAN C 10/07/16 09:30 Urine Color YELLOW 10/07/16 09:30 Urine Clarity SL. CLOUDY (CLEAR) 10/07/16 09:30 Urine pH 6.0 10/07/16 09:30 Ur Specific [place] (1.005-1.030) 10/07/16 09:30 Urine Protein 30 mg/dL (NEGATIVE) H 10/07/16 09:30 Urine Glucose (UA) NEGATIVE mg/dL (NEGATIVE) 10/07/16 09:30 Urine Ketones NEGATIVE mg/dL (NEGATIVE) 10/07/16 09:30 Urine Blood NEGATIVE (NEGATIVE) 10/07/16 09:30 Urine Nitrate NEGATIVE (NEGATIVE) 10/07/16 09:30 Urine Bilirubin NEGATIVE (NEGATIVE) 10/07/16 09:30 Urine Urobilinogen 0.2 E.U./dL (0.2 - 1.0) 10/07/16 09:30 Ur Leukocyte Esterase NEGATIVE (NEGATIVE) 10/07/16 09:30 Urine RBC NONE SEEN /hpf (0-5) 10/07/16 09:30 Urine WBC 0-2 /hpf (0-5) 10/07/16 09:30 Ur Epithelial Cells OCCASIONAL /lpf (FEW) 10/07/16 09:30 Amorphous Sediment MODERATE URATES (NONE SEEN) 10/03/16 04:10 Urine Bacteria OCCASIONAL /hpf (NONE SEEN) 10/07/16 09:30 Fine Granular Casts 0-2 /lpf (NONE SEEN) H 10/07/16 09:30 Urine Sperm FEW /hpf (NONE SEEN) 10/07/16 09:30 U Random Total Protein 43.0 mg/dL 10/06/16 05:30 Ur Random Sodium 30 mmol/L 10/04/16 14:52 Urine Collection Time 24 hours 10/06/16 05:30 Urine Total Volume 1300 ml 10/06/16 05:30 Urine Creatinine 113.2 mg/dl (Not Estab.) 10/04/16 14:52 Urine Microalbumin 84.6 ug/mL (Not Estab.) 10/04/16 14:52 Microalb/Creat Ratio 74.7 mg/g creat (0.0-30.0) H 10/04/16 14:52 U Tot Protein 24h, Calc 559.0 mg/24 hr (0-165) H 10/06/16 05:30 Vancomycin Trough 27.2 ug/mL (10-20) H 10/10/16 13:14 Coccidioides Ab Negative (Neg:<1:2) 10/07/16 04:39 Histoplasma Ab Imm Diff SEE REF. LAB REPORT 10/06/16 07:55 Histoplasma Antigen SEE REF. LAB REPORT 10/06/16 07:55 HIV 1&2 Antibody Screen NEGATIVE (NEG) 10/07/16 15:00 TB (QFT) Gold In Tube Indeterminate (Negative) H 10/07/16 18:30 TB Test (QFT) Mitogen 0.14 IU/mL 10/07/16 18:30 TB Test (QFT) Antigen 0.03 IU/mL 10/07/16 18:30 TB Test Antigen - Nil 0.00 IU/mL 10/07/16 18:30 TB Test TB - Nil 0.03 IU/mL 10/07/16 18:30 TB Test (QFT) Interp (()) 10/07/16 18:30 Blood Type A POSITIVE 10/11/16 07:48 Antibody Screen NEGATIVE 10/11/16 07:48 Crossmatch See Detail 10/11/16 07:48 - Physical Exam Vitals and I&O: Vital Signs Temp 97.6 F 10/12/16 08:00 Pulse 95 10/12/16 11:15 Resp 22 10/12/16 11:00 BP 118/69 10/12/16 11:15 Pulse Ox 98 10/12/16 11:00 Intake & Output 10/11/16 10/12/16 10/12/16 18:59 06:59 18:59 Intake Total 350 603.068 406.299 Output Total 500 Balance 350 103.068 406.299 Intake: Intake, IV Amount 350 363.068 406.299 Linezolid 600mg/300mL 600 300 mg In 300 ml @ 300 mls/ hr IV Q12HR [facility] Rx#: [id number] Norepinephrine 4 mg In 163.068 106.299 Dextrose 5% 250 ml @ 4 MCG/MIN 15.24 mls/hr IV TITR PRN Rx#:[id number] Piperacillin Sodium/ 100 200 Tazobact 4.5 gm In Sodium Chloride 0.9% 100 ml @ 100 mls/hr IV Q8HR [facility] Rx #:[id number] Vancomycin HCl 1 gm In 250 Sodium Chloride 0.9% 250 ml @ 165 mls/hr IV Q36H [facility] Rx#:[id number] Tube Feeding 240 Output: Urine 500 Active Medications: Current Medications Acetaminophen (Tylenol) 650 mg PO Q4HR PRN PRN Reason: Fever > 101 Stop: 12/01/16 15:05 Acetaminophen/Hydrocodone Bitart ([place] 10 Mg/325 Mg) 1 tab PO Q4H PRN PRN Reason: Pain (Moderate) Stop: 12/09/16 05:24 Last Admin: 10/10/16 21:51 Dose: 1 tab Albuterol Sulfate (Albuterol 2.5mg/3ml Neb Ud) 2.5 mg HHN Q2HR PRN PRN Reason: Wheezing Stop: 12/01/16 15:05 Last Admin: 10/03/16 14:35 Dose: 2.5 mg Albuterol/Ipratropium (Duoneb Neb) 3 ml HHN [id number] [facility] Stop: 12/02/16 18:59 Last Admin: 10/12/16 11:44 Dose: 3 ml Aspirin (Aspirin Chewable) 81 mg PO DAILY [facility] Stop: 12/02/16 08:59 Last Admin: 10/12/16 08:38 Dose: 81 mg Atorvastatin Calcium (Lipitor) 10 mg PO DAILY [facility] PRN Reason: Protocol Stop: 12/03/16 08:59 Last Admin: 10/12/16 08:38 Dose: 10 mg Budesonide (Pulmicort) 1 mg HHN BIDRT [facility] Stop: 12/02/16 18:59 Last Admin: 10/12/16 11:44 Dose: 1 mg Carvedilol (Coreg) 3.125 mg PO DAILY [facility] Stop: 12/02/16 08:59 Last Admin: 10/12/16 09:00 Dose: Not Given Furosemide (Lasix) 40 mg IVP DAILY [facility] Stop: 12/04/16 16:14 Last Admin: 10/12/16 08:40 Dose: 40 mg Piperacillin Sod/Tazobactam (Sod 4.5 gm/ Sodium Chloride) 100 mls @ 100 mls/hr IV Q8HR [facility] Stop: 12/10/16 04:59 Last Infusion: 10/12/16 06:36 Dose: Infused Norepinephrine Bitartrate 4 mg (/ Dextrose) 254 mls @ 15.24 mls/hr IV TITR PRN ; Protocol; 4 MCG/MIN PRN Reason: BP MAINTENANCE (PER PROTOCOL) Stop: 12/10/16 23:59 Last Titration: 10/12/16 11:00 Dose: 2 mcg/min, 7.62 mls/hr Linezolid (Zyvox) 600 mg in 300 mls @ 300 mls/hr IV Q12HR [facility] Stop: 12/11/16 08:59 Last Infusion: 10/12/16 09:40 Dose: Infused Ipratropium [place] (Atrovent Neb 0.5mg/2.5ml) 0.5 mg HHN Q2HR PRN PRN Reason: Wheezing Stop: 12/01/16 15:05 Last Admin: 10/03/16 14:35 Dose: 0.5 mg Lactobacillus Rhamnosus (Culturelle) 1 each PO DAILY [facility] Stop: 12/04/16 08:59 Last Admin: 10/12/16 08:38 Dose: 1 each Lactulose (Cephulac) 30 gm PO BID [facility] Stop: 12/04/16 16:59 Last Admin: 10/12/16 08:39 Dose: 30 gm Methylprednisolone Sodium Succinate (Solu-Medrol) 40 mg IV Q4HR [facility] Stop: 12/02/16 15:59 Last Admin: 10/12/16 12:10 Dose: 40 mg Mirtazapine (Remeron) 15 mg PO HS [facility] PRN Reason: Protocol Stop: 12/01/16 20:59 Last Admin: 10/11/16 21:32 Dose: 15 mg Miscellaneous (Vte Chemical Prophylaxis Screen/ Admission) 1 ea MC PRN PRN PRN Reason: PROTOCOL Stop: 12/01/16 16:51 Miscellaneous (Probiotic Screen) 1 ea MC PRN PRN PRN Reason: PROTOCOL Stop: 12/04/16 08:41 Mupirocin (Bactroban Oint) 1 appl TP BID [facility] Stop: 12/02/16 16:59 Last Admin: 10/12/16 08:44 Dose: 1 appl Nitroglycerin (Nitrostat) 0.4 mg SL Q5MIN PRN PRN Reason: Chest Pain Stop: 12/02/16 06:44 Last Admin: 10/03/16 10:31 Dose: 0.4 mg Pantoprazole Sodium (Protonix) 40 mg PO DAILY [facility] Stop: 12/02/16 07:29 Last Admin: 10/12/16 08:38 Dose: 40 mg Senna (Senna) 8.6 mg PO BID [facility] Stop: 12/01/16 16:59 Last Admin: 10/12/16 08:38 Dose: 8.6 mg General: Alert, No acute distress HEENT: Atraumatic, Mucous membr. moist/pink Neck: Supple, +2 carotid pulse wo bruit Cardiovascular: Regular rate, Normal S1, Normal S2 Lungs: Other (rhonchi, no wheeze, min congestion) Abdomen: Bowel sounds, Soft Extremities: Edema ((+!) bipedal edema) Neurological: Sensation intact Skin: no Rash Psych/Mental Status: Mood NL - Procedures Procedures: Procedures Procedure Code Date ASSISTANCE WITH RESPIRATORY VENTILATION, 24-96 HRS, CPAP [id number] 10/02/16 INSERT EMERGENCY AIRWAY 42349 10/02/16 INSERTION OF ENDOTRACHEAL AIRWAY INTO [place]HE[place], VIA OPENING [id number] 10/02/16 POS AIRWAY PRESSURE CPAP 26267 10/02/16 RESPIRATORY VENTILATION, LESS THAN 24 CONSECUTIVE HOURS [id number] 10/02/16 VENT MGMT INPAT IN DAY 96353 10/02/16 Assessment/Plan - Problem List Patient Problems: All Active Problems Acute renal failure (Acute) SOB (Acute ~10/02/16) - Assessment Assessment: NARESH exacerbation of COPD on vent right HAP cavity/mass lesion right apex CAD NSTE ID elevated BNP possibly pulm htn, structural heart ds., ? CHF PAD dyslipidemia severe malnutrition - Plan Plan: Lab - Result Diagrams 10/05/16 04:32 10/05/16 04:32 Current Medications Acetaminophen (Tylenol) 650 mg PO Q4HR PRN PRN Reason: Fever > 101 Stop: 12/01/16 15:05 Acetaminophen/Hydrocodone Bitart ([place] 10 Mg/325 Mg) 1 tab PO Q4H PRN PRN Reason: pain Stop: 12/01/16 15:05 Last Admin: 10/05/16 10:18 Dose: 1 tab Albuterol Sulfate (Albuterol 2.5mg/3ml Neb Ud) 2.5 mg HHN Q2HR PRN PRN Reason: Wheezing Stop: 12/01/16 15:05 Last Admin: 10/03/16 14:35 Dose: 2.5 mg Albuterol Sulfate (Vospire Er) 4 mg PO BID [facility] Stop: 12/01/16 16:59 Last Admin: 10/05/16 14:16 Dose: 4 mg Albuterol/Ipratropium (Duoneb Neb) 3 ml HHN [id number] [facility] Stop: 12/02/16 18:59 Last Admin: 10/05/16 11:17 Dose: 3 ml Aspirin (Aspirin Chewable) 81 mg PO DAILY [facility] Stop: 12/02/16 08:59 Last Admin: 10/05/16 08:12 Dose: 81 mg Atorvastatin Calcium (Lipitor) 10 mg PO DAILY [facility] PRN Reason: Protocol Stop: 12/03/16 08:59 Last Admin: 10/05/16 08:12 Dose: 10 mg Budesonide (Pulmicort) 1 mg HHN BIDRT [facility] Stop: 12/02/16 18:59 Last Admin: 10/05/16 07:04 Dose: 1 mg Carvedilol (Coreg) 3.125 mg PO DAILY [facility] Stop: 12/02/16 08:59 Last Admin: 10/05/16 08:11 Dose: 3.125 mg Furosemide (Lasix) 20 mg PO DAILY [facility] Stop: 12/04/16 08:59 Last Admin: 10/05/16 09:00 Dose: 20 mg Ceftriaxone Sodium 1 gm/ (Dextrose) 50 mls @ 100 mls/hr IV Q24H [facility] Stop: 12/02/16 15:29 Last Infusion: 10/04/16 17:45 Dose: Infused Azithromycin 500 mg/ Sodium (Chloride) 250 mls @ 250 mls/hr IV Q24HR [facility] Stop: 12/02/16 15:29 Last Admin: 10/04/16 18:07 Dose: 250 mls/hr Heparin Sodium/Dextrose (Heparin Drip) 25,000 units in 250 mls @ 0 mls/hr IV TITR PRN; Protocol; Titrate PRN Reason: PROTOCOL Stop: 12/03/16 02:07 Last Admin: 10/04/16 23:01 Dose: 12 mls/hr Sodium Chloride (Nacl 0.9%) 1,000 mls @ 40 mls/hr IV .Q24H [facility] Stop: 12/03/16 13:38 Last Admin: 10/04/16 16:45 Dose: 40 mls/hr Ipratropium [place] (Atrovent Neb 0.5mg/2.5ml) 0.5 mg HHN Q2HR PRN PRN Reason: Wheezing Stop: 12/01/16 15:05 Last Admin: 10/03/16 14:35 Dose: 0.5 mg Lactobacillus Rhamnosus (Culturelle) 1 each PO DAILY [facility] Stop: 12/04/16 08:59 Last Admin: 10/05/16 11:37 Dose: 1 each Lactulose (Cephulac) 30 gm PO BID [facility] Stop: 12/04/16 16:59 Lisinopril (Zestril) 5 mg PO DAILY [facility] Stop: 12/03/16 08:59 Last Admin: 10/05/16 08:11 Dose: 5 mg Lorazepam (Ativan) 0.5 mg PO BID PRN; Protocol PRN Reason: Anxiety Stop: 12/01/16 15:05 Last Admin: 10/05/16 08:12 Dose: 0.5 mg Lorazepam (Ativan) 1 mg IVP Q4HR PRN; Protocol PRN Reason: Agitation Stop: 12/02/16 18:57 Last Admin: 10/03/16 21:56 Dose: 1 mg Methylprednisolone Sodium Succinate (Solu-Medrol) 40 mg IV Q4HR [facility] Stop: 12/02/16 15:59 Last Admin: 10/05/16 11:37 Dose: 40 mg Mirtazapine (Remeron) 15 mg PO HS [facility] PRN Reason: Protocol Stop: 12/01/16 20:59 Last Admin: 10/04/16 21:53 Dose: 15 mg Miscellaneous (Vte Chemical Prophylaxis Screen/ Admission) 1 ea MC PRN PRN PRN Reason: PROTOCOL Stop: 12/01/16 16:51 Miscellaneous (Heparin Drip Per Pharmacy) 1 ea MC PRN [facility] PRN Reason: Protocol Stop: 12/03/16 01:59 Miscellaneous (Probiotic Screen) 1 ea PRN PRN PRN Reason: PROTOCOL Stop: 12/04/16 08:41 Mupirocin (Bactroban Oint) 1 appl TP BID [facility] Stop: 12/02/16 16:59 Last Admin: 10/05/16 09:00 Dose: 1 appl Nitroglycerin (Nitrostat) 0.4 mg SL Q5MIN PRN PRN Reason: Chest Pain Stop: 12/02/16 06:44 Last Admin: 10/03/16 10:31 Dose: 0.4 mg Pantoprazole Sodium (Protonix) 40 mg PO DAILY [facility] Stop: 12/02/16 07:29 Last Admin: 10/05/16 11:36 Dose: 40 mg Senna (Senna) 8.6 mg PO BID [facility] Stop: 12/01/16 16:59 Last Admin: 10/05/16 09:00 Dose: 8.6 mg kidney fnc slightly deteriorated w/ BUN/CR 100/2.2 FE Na 0.28% suggestive of pre renal component ECHO revealed LVH, CM, EJF 20%, RVSP? Lasix increased , on glucerna 40 ml/hr f/u electrolytes, cbc; cxr still no change WBC up to 25.8 tapering off Levo @ 1 mcg/min Nutritional Asmnt/Malnutr-PDOC - Dietary Evaluation Malnutrition Findings (Please click <Entered> for more info): Nutritional Asmnt/Malnutrition Start: 10/07/16 15: 35 Text: Status: Complete Freq: Document 10/07/16 15:36 GSUN (Rec: 10/07/16 15:55 GSUN [id number]) Nutritional Asmnt/Malnutrition Patient General Information Diagnosis Progress note: pneumonia, sepsis vs leukocytosis Pertinent Medical Hx/Surgical Hx H&P: CHF, COPD, CAD, ID, muscle weakness, HTN, hyperlipidemia Subjective Information 71 year old male on bipap. Pt was alert and pleasant during visit, mouthed to RD "I can't talk much right now" due to bipap. P stated he has lost weight recently due to physical inactivity. RD observed breakfast tray untouched. Spoek to RN, RN stated pt is not a breakfast person, ate 75% dinner last night. Avg PO intake <30% of meals, not meeting nutritional needs. Current Diet Order/ Nutrition Support Cardiac Pertinent Medications Lipitor, Lasix, Culturelle, Cephulac, Solu-Medrol, Remeron , Vancomycin, Protonix, Senna Pertinent Labs 10/07: BUN 50H, creatinine 1.5H , glucose 143H, BNP 3100H Nutritional Hx/Data Height 1.78 m Height (Calculated Centimeters) 177.8 Current Weight (lbs) 75.07 kg Weight (Calculated Kilograms) 75.1 Weight (Calculated Grams) 74836.5 [place] Body Weight 166lb Weight Status Approriate GI Symptoms Skin Integrity/Comment: Harjit Vazquez. curriculum and assessment director: pressure area coccyx Current %PO Negligible < 25% Estimated Nutritional Goals BEE in Kcals: Using Current wt Calories/Kcals/Kg CBW 165.5lb/75kg Kcals Calculated 2250-2625kcal (25-30kcal/kg) Protein: Using Current wt Protein g/kg: CBW Protein Calculated 75-113g (1-1.5g/kg) Fluid: ml 2250-2625ml (1ml/kcal) Nutritional Problem 1. Problem Problem Increased kcal and prot needs related to Etiology hypermetabolic state, pt report recent weight loss aeb Signs/Symptoms: pneumonia, sepsis vs leukocytosis, malnutrition per progress note Intervention/Recommendation Comments 1. Continue with cardiac diet. PO intake is suboptimal since adm. Continue to encourage PO intake and assist with meals. 2. Recommend Novasource Renal TID. 3. Monitor weight. Expected Outcomes/Goals Expected Outcomes/Goals 1. PO intake to meet 100% of estimated nutritional needs.
--- NOTE | 2016-10-12 14:50 | Progress Notes ---
PULMONARY PROCEDURE REPORT PROBLEM: Acute reason for intubation. EMERGENCY PROCEDURE: Acute respiratory failure. PROCEDURE NOTE: After family being notified of possible need for intubation, the patient was done intubation on emergency basis at the bedside. First, the patient's neck was hyperextended as much as good with the edge of the head at the end of the bed. Subsequently, the patient's artificial teeth was removed and subsequently, the patient with a direct Cold laryngoscope, vocal cords were visualized, size 6 endotracheal tube through the opening of the vocal cord was entered into the trachea without any difficulty with significant color change in a carboximeter. After having good bilateral air entry both the sides, the patient's endotracheal tube was fixed with anchor device and was attached to the respirator. Routine post-procedure chest x-ray as well as other parameters and the ventilator parameters were written and the patient tolerated intubation pretty well emergency. JOB# [id number]
--- NOTE | 2016-10-13 00:37 | Progress Notes ---
PULMONARY PROGRESS NOTE PROBLEM LIST: 1. Acute respiratory failure, currently intubated mechanical ventilation 100%. 2. Bilateral pneumonia. 3. 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 SYMPTOMS: The patient is obtunded, barely opens eyes. No respiratory distress. Currently, still on 100% of oxygen. PHYSICAL EXAMINATION: VITAL SIGNS: Temperature is 98, saturation 91, blood pressure 141/72, and saturation 98 on 100%. NECK: Veins not visualized. Good bilateral carotid upstroke. CHEST: Shows scattered rales and rhonchi with diminished air entry. HEART: Regular. ABDOMEN: Soft and nontender. EXTREMITIES: Show edematous changes. LABORATORY DATA: White count is 8.5 and hemoglobin 8.0. Blood gases show compensated respiratory acidemia with pO2 of 83 on 100% with 4 cm of PEEP as well as 100% FIO2. ASSESSMENT: The patient clinically has not significantly changed. Continue to extensive bilateral infiltrate as well as abnormal chest x-ray, probably chronic. PLANS AND SUGGESTIONS: We will decrease FIO2. Continue rest of other treatment and await for the final cultures for acid-fast stain. If it is stable or negative, we may consider discontinuation of isolation. Continue rest of other treatment. JOB# [id number]
[2016-10-13 02:12] LABS: HEP B CORE IGM Negative (Negative); HEP C ANTIBODY 0.2 s/co ratio (0.0-0.9)
[2016-10-13] MEDS: methylPREDNISolone SS 40 mg Vial IV SCH ×6 (04:00→20:57)
[2016-10-13 05:01] LABS: HEMOGLOBIN 9.4 gm/dL (12.6-17.4); MEAN CELL VOLUME 92.7 fl (80-99); MEAN CORPUSCULAR HEMOGLOBIN 31.5 pg (27.0-31.0); MEAN CORPUSCULAR HGB CONC 33.9 pg (28.0-36.0); MEAN PLATELET VOLUME 9.2 fl; PLATELET COUNT 109 Th/cmm (150-400); RED BLOOD COUNT 2.99 Mil/cmm (3.80-5.80); RED CELL DISTRIBUTION WIDTH 19.6 % (11.5-20.0)
[2016-10-13 05:15] LABS: ALB/GLOB RATIO 1.1 (1.0-1.8); ALKALINE PHOSPHATASE 40 U/L (34-104); ANION GAP 8.2 (7.0-16.0); BILIRUBIN,TOTAL 1.2 mg/dL (0.3-1.0); CALCIUM SERUM 8.7 mg/dL (8.6-10.3); CARBON DIOXIDE 33.7 mEq/L (21.0-31.0); CHLORIDE 109 mEq/L (98-107); CREATININE - SERUM 2.2 mg/dL (0.7-1.3); GLUCOSE 198 mg/dL (70-105); POTASSIUM SERUM 3.9 mEq/L (3.5-5.1); SGOT 37 U/L (13-39); SGPT/ALT 223 U/L (7-52); SODIUM SERUM 147 mEq/L (136-145)
[2016-10-13 05:16] LABS: INR 1.13 (0.5-1.4); PROTHROMBIN TIME (TEST) 11.9 SECONDS (9.5-11.5)
[2016-10-13 05:18] LABS: HEMATOCRIT 27.8 % (39.0-49.0); WHITE BLOOD COUNT 34.5 Th/cmm (4.8-10.8)
[2016-10-13 05:22] LABS: BUN - UREA NITROGEN 99 mg/dL (7-25)
[2016-10-13 06:03] LABS: TROP I 6.42 ng/mL (0.01-0.05)
[2016-10-13 07:31] LABS: ANISOCYTOSIS 1+; BAND NEUTROPHILE 2 % (0-10); NEUTROPHILS 93 % (40-80); PLATELET ESTIMATE DECREASED PLATELETS (NORMAL); PLATELET MORPHOLOGY GIANT PLATELETS SEEN (NORMAL); POLYCHROMASIA 1+; TOTAL CELLS COUNTED 100
[2016-10-13] MEDS: Albuterol/Ipratropium Neb 3 ML AERS HHN SCH ×4 (08:19→19:14)
[2016-10-13] MEDS: Budesonide 0.5 Mg/2 mL Ud HHN SCH ×2 (08:19→19:14)
--- NOTE | 2016-10-13 09:16 | Diagnostic Imaging Report ---
CHEST X-RAY: AP view INDICATION: Congestion COMPARISON: Chest x-ray 10/12/2016 FINDINGS: ET tube is seen with tip 8 mm above the amado. Left PICC line is stable. NG tube is seen with tip in the stomach. Diffuse bilateral infiltrates are seen with right effusion. Extensive chronic lung changes are noted. Cardiomegaly is noted. IMPRESSION: ET tube with tip 8 mm above the amado. Consider readjustment. No significant change in pulmonary status including diffuse pulmonary infiltrates and right effusion.
[2016-10-13] MEDS: Aspirin 81mg Chewable Tab PO SCH (09:17)
[2016-10-13] MEDS: Lactobacillus Rhamnosus 10 Billion CFU Capsule PO SCH (09:17)
[2016-10-13] MEDS: Pantoprazole 40 mg EC Tab PO SCH (09:17)
[2016-10-13] MEDS: Atorvastatin Calcium 10 MG TAB PO SCH (09:17)
[2016-10-13] MEDS: Linezolid 600mg/300mL 600 MG/300 ML BAG IV SCH ×2 (09:17→21:24)
[2016-10-13 09:25] LABS: IRON SATURATION 28 % (15-55); TIBC (LCI) 214 ug/dL (250-450); UIBC 155 ug/dL (111-343)
[2016-10-13] MEDS: Lactulose 10 Gm/15 mL 30mL UDC PO SCH ×2 (09:28→18:47)
[2016-10-13 11:16] LABS: pH 7.37 (7.35-7.45)
[2016-10-13 11:18] LABS: BE(B) 8.5 mEq/L (-3.0-3.0); HCO3 31.4 mEq/L (20.0-26.0)
[2016-10-13 11:19] LABS: ABG SOURCE Arterial; ALLEN TEST Positive; FIO2 80; MECH RATE 12; MECH VT 400
--- NOTE | 2016-10-13 12:10 | Infectious Disease Prog Note ---
Infectious Disease Subjective - Review of Systems Service Date: 10/13/16 Subjective: Patient remains intubated orally, no fever. Infectious Disease Objective - Results Result Diagrams: 10/13/16 04:24 10/13/16 04:24 Recent Labs: Laboratory Last Values WBC 34.5 Th/cmm (4.8-10.8) H* D 10/13/16 04:24 RBC 2.99 Mil/cmm (3.80-5.80) L 10/13/16 04:24 Hgb 9.4 gm/dL (12.6-17.4) L 10/13/16 04:24 Hct 27.8 % (39.0-49.0) L D 10/13/16 04:24 MCV 92.7 fl (80-99) 10/13/16 04:24 MCH 31.5 pg (27.0-31.0) H 10/13/16 04:24 MCHC Differential 33.9 pg (28.0-36.0) 10/13/16 04:24 RDW 19.6 % (11.5-20.0) 10/13/16 04:24 Plt Count 109 Th/cmm (150-400) L 10/13/16 04:24 MPV 9.2 fl 10/13/16 04:24 Neutrophils % MANUFACTURING SCHEDULER 10/09/16 05:04 Band Neutrophils % 2 % (0-10) 10/13/16 04:24 Lymphocytes % MANUFACTURING SCHEDULER 10/09/16 05:04 Monocytes % MANUFACTURING SCHEDULER 10/09/16 05:04 Eosinophils % 0.2 % (0.0-5.0) 10/03/16 06:36 Basophils % 0.4 % (0.0-2.0) 10/03/16 06:36 Neutrophils (Manual) 93 % (40-80) H 10/13/16 04:24 Lymphocytes 3 % (20-50) L 10/13/16 04:24 Monocytes 2 % (2-10) 10/13/16 04:24 Eosinophils 1 % (0-5) 10/11/16 04:43 Basophils 0 % (0-3) 10/10/16 13:14 Metamyelocytes 1 % (0-0) H 10/09/16 05:04 Nucleated RBCs 1.0 % (0-0) H 10/12/16 04:50 Platelet Estimate DECREASED PLATELETS (NORMAL) 10/13/16 04:24 Platelet Morphology GIANT PLATELETS SEEN (NORMAL) 10/13/16 04:24 Polychromasia 1+ 10/13/16 04:24 Anisocytosis 1+ 10/13/16 04:24 Ovalocytes 1+ 10/11/16 04:43 RBC Morph Micro Appear ABNORMAL (NORMAL) 10/13/16 04:24 Eos Smear Source URINE 10/04/16 14:52 Eos Smear Total Cells NONE SEEN (NONE SEEN) 10/04/16 14:52 PT 11.9 SECONDS (9.5-11.5) H 10/13/16 04:24 INR 1.13 (0.5-1.4) 10/13/16 04:24 PTT (Actin FS) 27.2 SECONDS (26.0-38.0) 10/13/16 04:24 Fibrinogen 264.0 mg/dL (200.0-400.0) 10/12/16 04:50 Specimen Source Arterial 10/13/16 10:42 Sample Site Right Radial 10/13/16 10:42 pH 7.37 (7.35-7.45) 10/13/16 10:42 pCO2 62.0 mmHg (35.0-45.0) H* 10/13/16 10:42 pO2 58.0 mmHg (80.0-100.0) L 10/13/16 10:42 HCO3 31.4 mEq/L (20.0-26.0) H 10/13/16 10:42 Base Excess 8.5 mEq/L (-3.0-3.0) H 10/13/16 10:42 O2 Saturation 89.0 % (92.0-100.0) L 10/13/16 10:42 Simon Test Positive 10/13/16 10:42 Vent Rate 12 10/13/16 10:42 Inspired O2 80 10/13/16 10:42 Tidal Volume 400 10/13/16 10:42 PEEP 5 10/13/16 10:42 Pressure (ins/psv/peep) NA 10/13/16 10:42 Critical Value LZHANG 10/13/16 10:42 Sodium 147 mEq/L (136-145) H 10/13/16 04:24 Potassium 3.9 mEq/L (3.5-5.1) 10/13/16 04:24 Chloride 109 mEq/L (98-107) H 10/13/16 04:24 Carbon Dioxide 33.7 mEq/L (21.0-31.0) H 10/13/16 04:24 Anion Gap 8.2 (7.0-16.0) 10/13/16 04:24 BUN 99 mg/dL (7-25) H* 10/13/16 04:24 Creatinine 2.2 mg/dL (0.7-1.3) H 10/13/16 04:24 Est GFR ( Amer) TNP 10/13/16 04:24 Est GFR (Non-Af Amer) TNP 10/13/16 04:24 BUN/Creatinine Ratio 45.0 10/13/16 04:24 Glucose 198 mg/dL (70-105) H 10/13/16 04:24 Hemoglobin A1c % 5.3 % (4.0-6.0) 10/09/16 05:04 Whole Bld Lactic Acid 0.79 mmol/L (0.60-1.99) 10/02/16 14:50 Uric Acid 8.5 mg/dL (4.4-7.6) H 10/05/16 04:32 Calcium 8.7 mg/dL (8.6-10.3) 10/13/16 04:24 Phosphorus 4.7 mg/dL (2.5-5.0) 10/05/16 04:32 Magnesium 2.4 mg/dL (1.9-2.7) 10/05/16 04:32 Iron 59 ug/dL (38-169) 10/12/16 10:10 TIBC 214 ug/dL (250-450) L 10/12/16 10:10 Iron Saturation 28 % (15-55) 10/12/16 10:10 Unsaturated IBC 155 ug/dL (111-343) 10/12/16 10:10 Total Bilirubin 1.2 mg/dL (0.3-1.0) H 10/13/16 04:24 AST 37 U/L (13-39) 10/13/16 04:24 ALT 223 U/L (7-52) H 10/13/16 04:24 Alkaline Phosphatase 40 U/L (34-104) 10/13/16 04:24 Ammonia 39 umol/L (16-53) 10/08/16 05:04 Troponin I 6.42 ng/mL (0.01-0.05) H* 10/13/16 04:24 B-Natriuretic Peptide 3580.0 pg/mL (5.0-100.0) H 10/13/16 04:24 Total Protein 5.7 gm/dL (6.0-8.3) L 10/13/16 04:24 Albumin 3.0 gm/dL (4.2-5.5) L 10/13/16 04:24 Globulin 2.7 gm/dL 10/13/16 04:24 Albumin/Globulin Ratio 1.1 (1.0-1.8) 10/13/16 04:24 Triglycerides 122 mg/dL (<150) 10/04/16 04:32 Cholesterol 132 mg/dL (<200) 10/04/16 04:32 LDL Cholesterol Direct 83 mg/dL (75-193) 10/04/16 04:32 HDL Cholesterol 33 mg/dL (23-92) 10/04/16 04:32 Free T4 1.14 ng/dL (0.82-1.77) 10/04/16 04:32 Free T3 1.4 pg/mL (2.0-4.4) L 10/04/16 04:32 TSH 1.79 uIU/ml (0.34-5.60) 10/04/16 04:32 Urine Source CLEAN C 10/07/16 09:30 Urine Color YELLOW 10/07/16 09:30 Urine Clarity SL. CLOUDY (CLEAR) 10/07/16 09:30 Urine pH 6.0 10/07/16 09:30 Ur Specific Cameron (1.005-1.030) 10/07/16 09:30 Urine Protein 30 mg/dL (NEGATIVE) H 10/07/16 09:30 Urine Glucose (UA) NEGATIVE mg/dL (NEGATIVE) 10/07/16 09:30 Urine Ketones NEGATIVE mg/dL (NEGATIVE) 10/07/16 09:30 Urine Blood NEGATIVE (NEGATIVE) 10/07/16 09:30 Urine Nitrate NEGATIVE (NEGATIVE) 10/07/16 09:30 Urine Bilirubin NEGATIVE (NEGATIVE) 10/07/16 09:30 Urine Urobilinogen 0.2 E.U./dL (0.2 - 1.0) 10/07/16 09:30 Ur Leukocyte Esterase NEGATIVE (NEGATIVE) 10/07/16 09:30 Urine RBC NONE SEEN /hpf (0-5) 10/07/16 09:30 Urine WBC 0-2 /hpf (0-5) 10/07/16 09:30 Ur Epithelial Cells OCCASIONAL /lpf (FEW) 10/07/16 09:30 Amorphous Sediment MODERATE URATES (NONE SEEN) 10/03/16 04:10 Urine Bacteria OCCASIONAL /hpf (NONE SEEN) 10/07/16 09:30 Fine Granular Casts 0-2 /lpf (NONE SEEN) H 10/07/16 09:30 Urine Sperm FEW /hpf (NONE SEEN) 10/07/16 09:30 U Random Total Protein 43.0 mg/dL 10/06/16 05:30 Ur Random Sodium 30 mmol/L 10/04/16 14:52 Urine Collection Time 24 hours 10/06/16 05:30 Urine Total Volume 1300 ml 10/06/16 05:30 Urine Creatinine 113.2 mg/dl (Not Estab.) 10/04/16 14:52 Urine Microalbumin 84.6 ug/mL (Not Estab.) 10/04/16 14:52 Microalb/Creat Ratio 74.7 mg/g creat (0.0-30.0) H 10/04/16 14:52 U Tot Protein 24h, Calc 559.0 mg/24 hr (0-165) H 10/06/16 05:30 Vancomycin Trough 27.2 ug/mL (10-20) H 10/10/16 13:14 Coccidioides Ab Negative (Neg:<1:2) 10/07/16 04:39 Hepatitis A IgM Ab Negative (Negative) 10/11/16 07:26 Hep Bs Antigen Negative (Negative) 10/11/16 07:26 Hep B Core IgM Ab Negative (Negative) 10/11/16 07:26 Hepatitis C Antibody 0.2 s/co ratio (0.0-0.9) 10/11/16 07:26 Histoplasma Ab Imm Diff SEE REF. LAB REPORT 10/06/16 07:55 Histoplasma Antigen SEE REF. LAB REPORT 10/06/16 07:55 HIV 1&2 Antibody Screen NEGATIVE (NEG) 10/07/16 15:00 TB (QFT) Gold In Tube Indeterminate (Negative) H 10/07/16 18:30 TB Test (QFT) Mitogen 0.14 IU/mL 10/07/16 18:30 TB Test (QFT) Antigen 0.03 IU/mL 10/07/16 18:30 TB Test Antigen - Nil 0.00 IU/mL 10/07/16 18:30 TB Test TB - Nil 0.03 IU/mL 10/07/16 18:30 TB Test (QFT) Interp (()) 10/07/16 18:30 Blood Type A POSITIVE 10/11/16 07:48 Antibody Screen NEGATIVE 10/11/16 07:48 Crossmatch See Detail 10/11/16 07:48 - Physical Exam Vitals and I&O: Vital Signs Temp 98 F 10/13/16 06:00 Pulse 106 10/13/16 09:30 Resp 20 10/13/16 06:00 BP 100/67 10/13/16 09:30 Pulse Ox 93 10/13/16 09:25 Intake & Output 10/12/16 10/13/16 10/13/16 18:59 06:59 18:59 Intake Total 6537.293 5762 Output Total 2150 750 Balance -776.556 300 Intake: Intake, IV Amount 523.444 400 Linezolid 600mg/300mL 600 300 300 mg In 300 ml @ 300 mls/ hr IV Q12HR [facility] Rx#: [id number] Norepinephrine 4 mg In 123.444 Dextrose 5% 250 ml @ 4 MCG/MIN 15.24 mls/hr IV TITR PRN Rx#:[id number] Piperacillin Sodium/ 100 100 Tazobact 4.5 gm In Sodium Chloride 0.9% 100 ml @ 100 mls/hr IV Q8HR [facility] Rx #:[id number] Tube Feeding 480 650 Blood Product 250 Other 120 Output: Urine 2150 750 Other: # Bowel Movements 0 15 Active Medications: Current Medications Acetaminophen (Tylenol) 650 mg PO Q4HR PRN PRN Reason: Fever > 101 Stop: 12/01/16 15:05 Acetaminophen/Hydrocodone Bitart (Fingal 10 Mg/325 Mg) 1 tab PO Q4H PRN PRN Reason: Pain (Moderate) Stop: 12/09/16 05:24 Last Admin: 10/10/16 21:51 Dose: 1 tab Albuterol Sulfate (Albuterol 2.5mg/3ml Neb Ud) 2.5 mg HHN Q2HR PRN PRN Reason: Wheezing Stop: 12/01/16 15:05 Last Admin: 10/03/16 14:35 Dose: 2.5 mg Albuterol/Ipratropium (Duoneb Neb) 3 ml HHN [id number] [facility] Stop: 12/02/16 18:59 Last Admin: 10/13/16 08:19 Dose: 3 ml Aspirin (Aspirin Chewable) 81 mg PO DAILY [facility] Stop: 12/02/16 08:59 Last Admin: 10/13/16 09:17 Dose: 81 mg Atorvastatin Calcium (Lipitor) 10 mg PO DAILY [facility] PRN Reason: Protocol Stop: 12/03/16 08:59 Last Admin: 10/13/16 09:17 Dose: 10 mg Budesonide (Pulmicort) 1 mg HHN BIDRT [facility] Stop: 12/02/16 18:59 Last Admin: 10/13/16 08:19 Dose: 1 mg Carvedilol (Coreg) 3.125 mg PO DAILY [facility] Stop: 12/02/16 08:59 Last Admin: 10/13/16 09:30 Dose: 3.125 mg Furosemide (Lasix) 40 mg IVP DAILY [facility] Stop: 12/04/16 16:14 Last Admin: 10/13/16 09:17 Dose: 40 mg Piperacillin Sod/Tazobactam (Sod 4.5 gm/ Sodium Chloride) 100 mls @ 100 mls/hr IV Q8HR [facility] Stop: 12/10/16 04:59 Last Admin: 10/13/16 05:00 Dose: 100 mls/hr Norepinephrine Bitartrate 4 mg (/ Dextrose) 254 mls @ 15.24 mls/hr IV TITR PRN ; Protocol; 4 MCG/MIN PRN Reason: BP MAINTENANCE (PER PROTOCOL) Stop: 12/10/16 23:59 Last Titration: 10/12/16 14:00 Dose: 0 mcg/min, 0 mls/hr Linezolid (Zyvox) 600 mg in 300 mls @ 300 mls/hr IV Q12HR [facility] Stop: 12/11/16 08:59 Last Admin: 10/13/16 09:17 Dose: 300 mls/hr Ipratropium Cartwright (Atrovent Neb 0.5mg/2.5ml) 0.5 mg HHN Q2HR PRN PRN Reason: Wheezing Stop: 12/01/16 15:05 Last Admin: 10/03/16 14:35 Dose: 0.5 mg Lactobacillus Rhamnosus (Culturelle) 1 each PO DAILY [facility] Stop: 12/04/16 08:59 Last Admin: 10/13/16 09:17 Dose: 1 each Lactulose (Cephulac) 30 gm PO BID [facility] Stop: 12/04/16 16:59 Last Admin: 10/13/16 09:28 Dose: 30 gm Methylprednisolone Sodium Succinate (Solu-Medrol) 40 mg IV Q4HR [facility] Stop: 12/02/16 15:59 Last Admin: 10/13/16 09:29 Dose: 40 mg Mirtazapine (Remeron) 15 mg PO HS [facility] PRN Reason: Protocol Stop: 12/01/16 20:59 Last Admin: 10/12/16 21:00 Dose: Not Given Miscellaneous (Vte Chemical Prophylaxis Screen/ Admission) 1 ea PRN PRN PRN Reason: PROTOCOL Stop: 12/01/16 16:51 Miscellaneous (Probiotic Screen) 1 ea PRN PRN PRN Reason: PROTOCOL Stop: 12/04/16 08:41 Miscellaneous (Clinical Monitoring) 1 ea MC DAILY PRN PRN Reason: RENAL Stop: 12/12/16 08:52 Mupirocin (Bactroban Oint) 1 appl TP BID [facility] Stop: 12/02/16 16:59 Last Admin: 10/13/16 09:16 Dose: 1 appl Nitroglycerin (Nitrostat) 0.4 mg SL Q5MIN PRN PRN Reason: Chest Pain Stop: 12/02/16 06:44 Last Admin: 10/03/16 10:31 Dose: 0.4 mg Pantoprazole Sodium (Protonix) 40 mg PO DAILY [facility] Stop: 12/02/16 07:29 Last Admin: 10/13/16 09:17 Dose: 40 mg Senna (Senna) 8.6 mg PO BID [facility] Stop: 12/01/16 16:59 Last Admin: 10/13/16 09:16 Dose: 8.6 mg General: no acute distress, cachectic HEENT: atraumatic, normocephalic, PERRLA, EOMI, moist mucous membrane Neck: supple, no thyromegaly Cardiovascular: S1S2, regular Lungs: clear to auscultation bilaterally, clear to percussion Abdomen: soft, bowel sounds, no tender, no distended Extremities: no cyanosis, no clubbing, no edema Neurological: other (sedated) Skin: intact - Procedures Procedures: Procedures Procedure Code Date ASSISTANCE WITH RESPIRATORY VENTILATION, 24-96 HRS, CPAP [id number] 10/02/16 INSERT EMERGENCY AIRWAY 44925 10/02/16 INSERTION OF ENDOTRACHEAL AIRWAY INTO [place], VIA OPENING [id number] 10/02/16 POS AIRWAY PRESSURE CPAP 27188 10/02/16 RESPIRATORY VENTILATION, LESS THAN 24 CONSECUTIVE HOURS [id number] 10/02/16 VENT MGMT INPAT INIT DAY [id number] 10/02/16 Infectious Disease Assmt/Plan - Problem List Patient Problems: All Active Problems Acute renal failure (Acute) SOB (Acute ~10/02/16) - Assessment Assessment: Impression: 1. RUL cavitary lesion. ( Necrotic debris). Cocci negative. 2. Pneumonia. 3. Leukocytosis. 4. DE. 5. VDRF. 6. NARESH. 7. Recommendations: Continue same treatment follow the labs. Antibiotic wilcox continue zosyn. Change vanco to zyvox for his acute renal failure. Poor prognosis. Nutritional Asmnt/Malnutr-PDOC - Dietary Evaluation Malnutrition Findings (Please click <Entered> for more info): Nutritional Asmnt/Malnutrition Start: 10/07/16 15: 35 Text: Status: Complete Freq: Document 10/07/16 15:36 GSUN (Rec: 10/07/16 15:55 GSUN [place] [id number]) Nutritional Asmnt/Malnutrition Patient General Information Diagnosis Progress note: pneumonia, sepsis vs leukocytosis Pertinent Medical Hx/Surgical Hx H&P: CHF, COPD, CAD, DE, muscle weakness, HTN, hyperlipidemia Subjective Information 71 year old male on bipap. Pt was alert and pleasant during visit, mouthed to RD "I can't talk much right now" due to bipap. P stated he has lost weight recently due to physical inactivity. RD observed breakfast tray untouched. Spoek to RN, RN stated pt is not a breakfast person, ate 75% dinner last night. Avg PO intake <30% of meals, not meeting nutritional needs. Current Diet Order/ Nutrition Support Cardiac Pertinent Medications Lipitor, Lasix, Culturelle, Cephulac, Solu-Medrol, Remeron , Vancomycin, Protonix, Senna Pertinent Labs 10/07: BUN 50H, creatinine 1.5H , glucose 143H, BNP 3100H Nutritional Hx/Data Height 1.78 m Height (Calculated Centimeters) 177.8 Current Weight (lbs) 75.07 kg Weight (Calculated Kilograms) 75.1 Weight (Calculated Grams) 17142.5 Ord Body Weight 166lb Weight Status Approriate GI Symptoms Skin Integrity/Comment: Harjit 12. photo cartographer: pressure area coccyx Current %PO Negligible < 25% Estimated Nutritional Goals BEE in Kcals: Using Current wt Calories/Kcals/Kg CBW 165.5lb/75kg Kcals Calculated 2250-2625kcal (25-30kcal/kg) Protein: Using Current wt Protein g/kg: CBW Protein Calculated 75-113g (1-1.5g/kg) Fluid: ml 2250-2625ml (1ml/kcal) Nutritional Problem 1. Problem Problem Increased kcal and prot needs related to Etiology hypermetabolic state, pt report recent weight loss aeb Signs/Symptoms: pneumonia, sepsis vs leukocytosis, malnutrition per progress note Intervention/Recommendation Comments 1. Continue with cardiac diet. PO intake is suboptimal since adm. Continue to encourage PO intake and assist with meals. 2. Recommend Novasource Renal TID. 3. Monitor weight. Expected Outcomes/Goals Expected Outcomes/Goals 1. PO intake to meet 100% of estimated nutritional needs.
--- NOTE | 2016-10-13 13:23 | General Progress Note ---
Subjective - Review of Systems Service Date: 10/13/16 Subjective: stuporous, on vent Objective - Results Result Diagrams: 10/13/16 04:24 10/13/16 04:24 Recent Labs: Laboratory Last Values WBC 34.5 Th/cmm (4.8-10.8) H* D 10/13/16 04:24 RBC 2.99 Mil/cmm (3.80-5.80) L 10/13/16 04:24 Hgb 9.4 gm/dL (12.6-17.4) L 10/13/16 04:24 Hct 27.8 % (39.0-49.0) L D 10/13/16 04:24 MCV 92.7 fl (80-99) 10/13/16 04:24 MCH 31.5 pg (27.0-31.0) H 10/13/16 04:24 MCHC Differential 33.9 pg (28.0-36.0) 10/13/16 04:24 RDW 19.6 % (11.5-20.0) 10/13/16 04:24 Plt Count 109 Th/cmm (150-400) L 10/13/16 04:24 MPV 9.2 fl 10/13/16 04:24 Neutrophils % [employer] 10/09/16 05:04 Band Neutrophils % 2 % (0-10) 10/13/16 04:24 Lymphocytes % [employer]ER 10/09/16 05:04 Monocytes % [employer]LL[employer]INEER 10/09/16 05:04 Eosinophils % 0.2 % (0.0-5.0) 10/03/16 06:36 Basophils % 0.4 % (0.0-2.0) 10/03/16 06:36 Neutrophils (Manual) 93 % (40-80) H 10/13/16 04:24 Lymphocytes 3 % (20-50) L 10/13/16 04:24 Monocytes 2 % (2-10) 10/13/16 04:24 Eosinophils 1 % (0-5) 10/11/16 04:43 Basophils 0 % (0-3) 10/10/16 13:14 Metamyelocytes 1 % (0-0) H 10/09/16 05:04 Nucleated RBCs 1.0 % (0-0) H 10/12/16 04:50 Platelet Estimate DECREASED PLATELETS (NORMAL) 10/13/16 04:24 Platelet Morphology GIANT PLATELETS SEEN (NORMAL) 10/13/16 04:24 Polychromasia 1+ 10/13/16 04:24 Anisocytosis 1+ 10/13/16 04:24 Ovalocytes 1+ 10/11/16 04:43 RBC Morph Micro Appear ABNORMAL (NORMAL) 10/13/16 04:24 Eos Smear Source URINE 10/04/16 14:52 Eos Smear Total Cells NONE SEEN (NONE SEEN) 10/04/16 14:52 PT 11.9 SECONDS (9.5-11.5) H 10/13/16 04:24 INR 1.13 (0.5-1.4) 10/13/16 04:24 PTT (Actin FS) 27.2 SECONDS (26.0-38.0) 10/13/16 04:24 Fibrinogen 264.0 mg/dL (200.0-400.0) 10/12/16 04:50 Specimen Source Arterial 10/13/16 10:42 Sample Site Right Radial 10/13/16 10:42 pH 7.37 (7.35-7.45) 10/13/16 10:42 pCO2 62.0 mmHg (35.0-45.0) H* 10/13/16 10:42 pO2 58.0 mmHg (80.0-100.0) L 10/13/16 10:42 HCO3 31.4 mEq/L (20.0-26.0) H 10/13/16 10:42 Base Excess 8.5 mEq/L (-3.0-3.0) H 10/13/16 10:42 O2 Saturation 89.0 % (92.0-100.0) L 10/13/16 10:42 Simon Test Positive 10/13/16 10:42 Vent Rate 12 10/13/16 10:42 Inspired O2 80 10/13/16 10:42 Tidal Volume 400 10/13/16 10:42 PEEP 5 10/13/16 10:42 Pressure (ins/psv/peep) NA 10/13/16 10:42 Critical Value LZHANG 10/13/16 10:42 Sodium 147 mEq/L (136-145) H 10/13/16 04:24 Potassium 3.9 mEq/L (3.5-5.1) 10/13/16 04:24 Chloride 109 mEq/L (98-107) H 10/13/16 04:24 Carbon Dioxide 33.7 mEq/L (21.0-31.0) H 10/13/16 04:24 Anion Gap 8.2 (7.0-16.0) 10/13/16 04:24 BUN 99 mg/dL (7-25) H* 10/13/16 04:24 Creatinine 2.2 mg/dL (0.7-1.3) H 10/13/16 04:24 Est GFR ( Amer) TNP 10/13/16 04:24 Est GFR (Non-Af Amer) TNP 10/13/16 04:24 BUN/Creatinine Ratio 45.0 10/13/16 04:24 Glucose 198 mg/dL (70-105) H 10/13/16 04:24 Hemoglobin A1c % 5.3 % (4.0-6.0) 10/09/16 05:04 Whole Bld Lactic Acid 0.79 mmol/L (0.60-1.99) 10/02/16 14:50 Uric Acid 8.5 mg/dL (4.4-7.6) H 10/05/16 04:32 Calcium 8.7 mg/dL (8.6-10.3) 10/13/16 04:24 Phosphorus 4.7 mg/dL (2.5-5.0) 10/05/16 04:32 Magnesium 2.4 mg/dL (1.9-2.7) 10/05/16 04:32 Iron 59 ug/dL (38-169) 10/12/16 10:10 TIBC 214 ug/dL (250-450) L 10/12/16 10:10 Iron Saturation 28 % (15-55) 10/12/16 10:10 Unsaturated IBC 155 ug/dL (111-343) 10/12/16 10:10 Total Bilirubin 1.2 mg/dL (0.3-1.0) H 10/13/16 04:24 AST 37 U/L (13-39) 10/13/16 04:24 ALT 223 U/L (7-52) H 10/13/16 04:24 Alkaline Phosphatase 40 U/L (34-104) 10/13/16 04:24 Ammonia 39 umol/L (16-53) 10/08/16 05:04 Troponin I 6.42 ng/mL (0.01-0.05) H* 10/13/16 04:24 B-Natriuretic Peptide 3580.0 pg/mL (5.0-100.0) H 10/13/16 04:24 Total Protein 5.7 gm/dL (6.0-8.3) L 10/13/16 04:24 Albumin 3.0 gm/dL (4.2-5.5) L 10/13/16 04:24 Globulin 2.7 gm/dL 10/13/16 04:24 Albumin/Globulin Ratio 1.1 (1.0-1.8) 10/13/16 04:24 Triglycerides 122 mg/dL (<150) 10/04/16 04:32 Cholesterol 132 mg/dL (<200) 10/04/16 04:32 LDL Cholesterol Direct 83 mg/dL (75-193) 10/04/16 04:32 HDL Cholesterol 33 mg/dL (23-92) 10/04/16 04:32 Free T4 1.14 ng/dL (0.82-1.77) 10/04/16 04:32 Free T3 1.4 pg/mL (2.0-4.4) L 10/04/16 04:32 TSH 1.79 uIU/ml (0.34-5.60) 10/04/16 04:32 Urine Source CLEAN C 10/07/16 09:30 Urine Color YELLOW 10/07/16 09:30 Urine Clarity SL. CLOUDY (CLEAR) 10/07/16 09:30 Urine pH 6.0 10/07/16 09:30 Ur Specific [place] (1.005-1.030) 10/07/16 09:30 Urine Protein 30 mg/dL (NEGATIVE) H 10/07/16 09:30 Urine Glucose (UA) NEGATIVE mg/dL (NEGATIVE) 10/07/16 09:30 Urine Ketones NEGATIVE mg/dL (NEGATIVE) 10/07/16 09:30 Urine Blood NEGATIVE (NEGATIVE) 10/07/16 09:30 Urine Nitrate NEGATIVE (NEGATIVE) 10/07/16 09:30 Urine Bilirubin NEGATIVE (NEGATIVE) 10/07/16 09:30 Urine Urobilinogen 0.2 E.U./dL (0.2 - 1.0) 10/07/16 09:30 Ur Leukocyte Esterase NEGATIVE (NEGATIVE) 10/07/16 09:30 Urine RBC NONE SEEN /hpf (0-5) 10/07/16 09:30 Urine WBC 0-2 /hpf (0-5) 10/07/16 09:30 Ur Epithelial Cells OCCASIONAL /lpf (FEW) 10/07/16 09:30 Amorphous Sediment MODERATE URATES (NONE SEEN) 10/03/16 04:10 Urine Bacteria OCCASIONAL /hpf (NONE SEEN) 10/07/16 09:30 Fine Granular Casts 0-2 /lpf (NONE SEEN) H 10/07/16 09:30 Urine Sperm FEW /hpf (NONE SEEN) 10/07/16 09:30 U Random Total Protein 43.0 mg/dL 10/06/16 05:30 Ur Random Sodium 30 mmol/L 10/04/16 14:52 Urine Collection Time 24 hours 10/06/16 05:30 Urine Total Volume 1300 ml 10/06/16 05:30 Urine Creatinine 113.2 mg/dl (Not Estab.) 10/04/16 14:52 Urine Microalbumin 84.6 ug/mL (Not Estab.) 10/04/16 14:52 Microalb/Creat Ratio 74.7 mg/g creat (0.0-30.0) H 10/04/16 14:52 U Tot Protein 24h, Calc 559.0 mg/24 hr (0-165) H 10/06/16 05:30 Vancomycin Trough 27.2 ug/mL (10-20) H 10/10/16 13:14 Random Vancomycin 23.2 ug/mL (5.0-40.0) 10/13/16 04:24 Coccidioides Ab Negative (Neg:<1:2) 10/07/16 04:39 Hepatitis A IgM Ab Negative (Negative) 10/11/16 07:26 Hep Bs Antigen Negative (Negative) 10/11/16 07:26 Hep B Core IgM Ab Negative (Negative) 10/11/16 07:26 Hepatitis C Antibody 0.2 s/co ratio (0.0-0.9) 10/11/16 07:26 Histoplasma Ab Imm Diff SEE REF. LAB REPORT 10/06/16 07:55 Histoplasma Antigen SEE REF. LAB REPORT 10/06/16 07:55 HIV 1&2 Antibody Screen NEGATIVE (NEG) 10/07/16 15:00 TB (QFT) Gold In Tube Indeterminate (Negative) H 10/07/16 18:30 TB Test (QFT) Mitogen 0.14 IU/mL 10/07/16 18:30 TB Test (QFT) Antigen 0.03 IU/mL 10/07/16 18:30 TB Test Antigen - Nil 0.00 IU/mL 10/07/16 18:30 TB Test TB - Nil 0.03 IU/mL 10/07/16 18:30 TB Test (QFT) Interp (()) 10/07/16 18:30 Blood Type A POSITIVE 10/11/16 07:48 Antibody Screen NEGATIVE 10/11/16 07:48 Crossmatch See Detail 10/11/16 07:48 - Physical Exam Vitals and I&O: Vital Signs Temp 98 F 10/13/16 06:00 Pulse 94 10/13/16 12:57 Resp 20 10/13/16 06:00 BP 100/67 10/13/16 09:30 Pulse Ox 94 10/13/16 12:57 Intake & Output 10/12/16 10/13/16 10/13/16 18:59 06:59 18:59 Intake Total 9053.802 3976 Output Total 2150 750 Balance -776.556 400 Intake: Intake, IV Amount 523.444 500 Linezolid 600mg/300mL 600 300 300 mg In 300 ml @ 300 mls/ hr IV Q12HR GAY[facility] Rx#: [id number] Norepinephrine 4 mg In 123.444 Dextrose 5% 250 ml @ 4 MCG/MIN 15.24 mls/hr IV TITR PRN Rx#:[id number] Piperacillin Sodium/ 100 200 Tazobact 4.5 gm In Sodium Chloride 0.9% 100 ml @ 100 mls/hr IV Q8HR GAYLE Rx #:[id number] Tube Feeding 480 650 Blood Product 250 Other 120 Output: Urine 2150 750 Other: # Bowel Movements 0 15 Active Medications: Current Medications Acetaminophen (Tylenol) 650 mg PO Q4HR PRN PRN Reason: Fever > 101 Stop: 12/01/16 15:05 Acetaminophen/Hydrocodone Bitart ([place] 10 Mg/325 Mg) 1 tab PO Q4H PRN PRN Reason: Pain (Moderate) Stop: 12/09/16 05:24 Last Admin: 10/10/16 21:51 Dose: 1 tab Albuterol Sulfate (Albuterol 2.5mg/3ml Neb Ud) 2.5 mg HHN Q2HR PRN PRN Reason: Wheezing Stop: 12/01/16 15:05 Last Admin: 10/03/16 14:35 Dose: 2.5 mg Albuterol/Ipratropium (Duoneb Neb) 3 ml HHN [id number] GAYLE Stop: 12/02/16 18:59 Last Admin: 10/13/16 12:40 Dose: 3 ml Aspirin (Aspirin Chewable) 81 mg PO DAILY [facility] Stop: 12/02/16 08:59 Last Admin: 10/13/16 09:17 Dose: 81 mg Atorvastatin Calcium (Lipitor) 10 mg PO DAILY [facility] PRN Reason: Protocol Stop: 12/03/16 08:59 Last Admin: 10/13/16 09:17 Dose: 10 mg Budesonide (Pulmicort) 1 mg HHN BIDRT G[facility]LE Stop: 12/02/16 18:59 Last Admin: 10/13/16 08:19 Dose: 1 mg Carvedilol (Coreg) 3.125 mg PO DAILY [facility] Stop: 12/02/16 08:59 Last Admin: 10/13/16 09:30 Dose: 3.125 mg Furosemide (Lasix) 40 mg IVP DAILY [facility] Stop: 12/04/16 16:14 Last Admin: 10/13/16 09:17 Dose: 40 mg Piperacillin Sod/Tazobactam (Sod 4.5 gm/ Sodium Chloride) 100 mls @ 100 mls/hr IV Q8HR [facility] Stop: 12/10/16 04:59 Last Admin: 10/13/16 12:45 Dose: 100 mls/hr Norepinephrine Bitartrate 4 mg (/ Dextrose) 254 mls @ 15.24 mls/hr IV TITR PRN ; Protocol; 4 MCG/MIN PRN Reason: BP MAINTENANCE (PER PROTOCOL) Stop: 12/10/16 23:59 Last Titration: 10/12/16 14:00 Dose: 0 mcg/min, 0 mls/hr Linezolid (Zyvox) 600 mg in 300 mls @ 300 mls/hr IV Q12HR GAYLE Stop: 12/11/16 08:59 Last Admin: 10/13/16 09:17 Dose: 300 mls/hr Ipratropium [place] (Atrovent Neb 0.5mg/2.5ml) 0.5 mg HHN Q2HR PRN PRN Reason: Wheezing Stop: 12/01/16 15:05 Last Admin: 10/03/16 14:35 Dose: 0.5 mg Lactobacillus Rhamnosus (Culturelle) 1 each PO DAILY [facility]LE Stop: 12/04/16 08:59 Last Admin: 10/13/16 09:17 Dose: 1 each Lactulose (Cephulac) 30 gm PO BID [facility] Stop: 12/04/16 16:59 Last Admin: 10/13/16 09:28 Dose: 30 gm Methylprednisolone Sodium Succinate (Solu-Medrol) 40 mg IV Q4HR GAYLE Stop: 12/02/16 15:59 Last Admin: 10/13/16 12:45 Dose: 40 mg Mirtazapine (Remeron) 15 mg PO HS G[facility]LE PRN Reason: Protocol Stop: 12/01/16 20:59 Last Admin: 10/12/16 21:00 Dose: Not Given Miscellaneous (Vte Chemical Prophylaxis Screen/ Admission) 1 ea PRN PRN PRN Reason: PROTOCOL Stop: 12/01/16 16:51 Miscellaneous (Probiotic Screen) 1 [facility] PRN PRN PRN Reason: PROTOCOL Stop: 12/04/16 08:41 Miscellaneous (Clinical Monitoring) 1 ea DAILY PRN PRN Reason: RENAL Stop: 12/12/16 08:52 Mupirocin (Bactroban Oint) 1 appl TP BID [facility] Stop: 12/02/16 16:59 Last Admin: 10/13/16 09:16 Dose: 1 appl Nitroglycerin (Nitrostat) 0.4 mg SL Q5MIN PRN PRN Reason: Chest Pain Stop: 12/02/16 06:44 Last Admin: 10/03/16 10:31 Dose: 0.4 mg Pantoprazole Sodium (Protonix) 40 mg PO DAILY [facility] Stop: 12/02/16 07:29 Last Admin: 10/13/16 09:17 Dose: 40 mg Senna (Senna) 8.6 mg PO BID [facility] Stop: 12/01/16 16:59 Last Admin: 10/13/16 09:16 Dose: 8.6 mg General: No acute distress HEENT: Atraumatic, Mucous membr. moist/pink Neck: Supple, +2 carotid pulse wo bruit Cardiovascular: Regular rate, Normal S1, Normal S2 Lungs: Other (scattered rhonchi, no congestion/wheeze) Abdomen: Bowel sounds, Soft Extremities: no Edema Neurological: Sensation intact Skin: no Rash Psych/Mental Status: Mood NL - Procedures Procedures: Procedures Procedure Code Date ASSISTANCE WITH RESPIRATORY VENTILATION, 24-96 HRS, CPAP [id number] 10/02/16 INSERT EMERGENCY AIRWAY 95274 10/02/16 INSERTION OF ENDOTRACHEAL AIRWAY INTO [place], VIA OPENING [id number] 10/02/16 POS AIRWAY PRESSURE CPAP 15558 10/02/16 RESPIRATORY VENTILATION, LESS THAN 24 CONSECUTIVE HOURS [id number] 10/02/16 VENT MGMT INPAT INIT DAY 31054 10/02/16 Assessment/Plan - Problem List Patient Problems: All Active Problems Acute renal failure (Acute) SOB (Acute ~10/02/16) - Assessment Assessment: NARESH exacerbation of COPD on vent right HAP cavity/mass lesion right apex CAD NSTE ID elevated BNP possibly pulm htn, structural heart ds., ? CHF PAD dyslipidemia severe malnutrition - Plan Plan: Lab - Result Diagrams 10/05/16 04:32 10/05/16 04:32 Current Medications Acetaminophen (Tylenol) 650 mg PO Q4HR PRN PRN Reason: Fever > 101 Stop: 12/01/16 15:05 Acetaminophen/Hydrocodone Bitart ([place] 10 Mg/325 Mg) 1 tab PO Q4H PRN PRN Reason: pain Stop: 12/01/16 15:05 Last Admin: 10/05/16 10:18 Dose: 1 tab Albuterol Sulfate (Albuterol 2.5mg/3ml Neb Ud) 2.5 mg HHN Q2HR PRN PRN Reason: Wheezing Stop: 12/01/16 15:05 Last Admin: 10/03/16 14:35 Dose: 2.5 mg Albuterol Sulfate (Vospire Er) 4 mg PO BID [facility] Stop: 12/01/16 16:59 Last Admin: 10/05/16 14:16 Dose: 4 mg Albuterol/Ipratropium (Duoneb Neb) 3 ml HHN [id number] [facility] Stop: 12/02/16 18:59 Last Admin: 10/05/16 11:17 Dose: 3 ml Aspirin (Aspirin Chewable) 81 mg PO DAILY [facility] Stop: 12/02/16 08:59 Last Admin: 10/05/16 08:12 Dose: 81 mg Atorvastatin Calcium (Lipitor) 10 mg PO DAILY [facility] PRN Reason: Protocol Stop: 12/03/16 08:59 Last Admin: 10/05/16 08:12 Dose: 10 mg Budesonide (Pulmicort) 1 mg HHN BIDRT [facility] Stop: 12/02/16 18:59 Last Admin: 10/05/16 07:04 Dose: 1 mg Carvedilol (Coreg) 3.125 mg PO DAILY [facility] Stop: 12/02/16 08:59 Last Admin: 10/05/16 08:11 Dose: 3.125 mg Furosemide (Lasix) 20 mg PO DAILY [facility] Stop: 12/04/16 08:59 Last Admin: 10/05/16 09:00 Dose: 20 mg Ceftriaxone Sodium 1 gm/ (Dextrose) 50 mls @ 100 mls/hr IV Q24H [facility] Stop: 12/02/16 15:29 Last Infusion: 10/04/16 17:45 Dose: Infused Azithromycin 500 mg/ Sodium (Chloride) 250 mls @ 250 mls/hr IV Q24HR [facility] Stop: 12/02/16 15:29 Last Admin: 10/04/16 18:07 Dose: 250 mls/hr Heparin Sodium/Dextrose (Heparin Drip) 25,000 units in 250 mls @ 0 mls/hr IV TITR PRN; Protocol; Titrate PRN Reason: PROTOCOL Stop: 12/03/16 02:07 Last Admin: 10/04/16 23:01 Dose: 12 mls/hr Sodium Chloride (Nacl 0.9%) 1,000 mls @ 40 mls/hr IV .Q24H [facility] Stop: 12/03/16 13:38 Last Admin: 10/04/16 16:45 Dose: 40 mls/hr Ipratropium [place] (Atrovent Neb 0.5mg/2.5ml) 0.5 mg HHN Q2HR PRN PRN Reason: Wheezing Stop: 12/01/16 15:05 Last Admin: 10/03/16 14:35 Dose: 0.5 mg Lactobacillus Rhamnosus (Culturelle) 1 each PO DAILY [facility] Stop: 12/04/16 08:59 Last Admin: 10/05/16 11:37 Dose: 1 each Lactulose (Cephulac) 30 gm PO BID [facility] Stop: 12/04/16 16:59 Lisinopril (Zestril) 5 mg PO DAILY [facility] Stop: 12/03/16 08:59 Last Admin: 10/05/16 08:11 Dose: 5 mg Lorazepam (Ativan) 0.5 mg PO BID PRN; Protocol PRN Reason: Anxiety Stop: 12/01/16 15:05 Last Admin: 10/05/16 08:12 Dose: 0.5 mg Lorazepam (Ativan) 1 mg IVP Q4HR PRN; Protocol PRN Reason: Agitation Stop: 12/02/16 18:57 Last Admin: 10/03/16 21:56 Dose: 1 mg Methylprednisolone Sodium Succinate (Solu-Medrol) 40 mg IV Q4HR [facility] Stop: 12/02/16 15:59 Last Admin: 10/05/16 11:37 Dose: 40 mg Mirtazapine (Remeron) 15 mg PO HS [facility] PRN Reason: Protocol Stop: 12/01/16 20:59 Last Admin: 10/04/16 21:53 Dose: 15 mg Miscellaneous (Vte Chemical Prophylaxis Screen/ Admission) 1 ea PRN PRN PRN Reason: PROTOCOL Stop: 12/01/16 16:51 Miscellaneous (Heparin Drip Per Pharmacy) 1 ea PRN [facility] PRN Reason: Protocol Stop: 12/03/16 01:59 Miscellaneous (Probiotic Screen) 1 ea PRN PRN PRN Reason: PROTOCOL Stop: 12/04/16 08:41 Mupirocin (Bactroban Oint) 1 appl TP BID [facility] Stop: 12/02/16 16:59 Last Admin: 10/05/16 09:00 Dose: 1 appl Nitroglycerin (Nitrostat) 0.4 mg SL Q5MIN PRN PRN Reason: Chest Pain Stop: 12/02/16 06:44 Last Admin: 10/03/16 10:31 Dose: 0.4 mg Pantoprazole Sodium (Protonix) 40 mg PO DAILY [facility] Stop: 12/02/16 07:29 Last Admin: 10/05/16 11:36 Dose: 40 mg Senna (Senna) 8.6 mg PO BID [facility] Stop: 12/01/16 16:59 Last Admin: 10/05/16 09:00 Dose: 8.6 mg kidney fnc slightly deteriorated w/ BUN/CR 99/2.2 FE Na 0.28% suggestive of pre renal component ECHO revealed LVH, CM, EJF 20%, RVSP? Lasix increased , on nutren decrease to 40 ml/hr f/u electrolytes, cbc; cxr still no change WBC up to 34.5 off Levo Nutritional Asmnt/Malnutr-PDOC - Dietary Evaluation Malnutrition Findings (Please click <Entered> for more info): Nutritional Asmnt/Malnutrition Start: 10/07/16 15: 35 Text: Status: Complete Freq: Document 10/07/16 15:36 GSUN (Rec: 10/07/16 15:55 GSUN [id number]) Nutritional Asmnt/Malnutrition Patient General Information Diagnosis Progress note: pneumonia, sepsis vs leukocytosis Pertinent Medical Hx/Surgical Hx H&P: CHF, COPD, CAD, ID, muscle weakness, HTN, hyperlipidemia Subjective Information 71 year old male on bipap. Pt was alert and pleasant during visit, mouthed to RD "I can't talk much right now" due to bipap. P stated he has lost weight recently due to physical inactivity. RD observed breakfast tray untouched. Spoek to RN, RN stated pt is not a breakfast person, ate 75% dinner last night. Avg PO intake <30% of meals, not meeting nutritional needs. 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 Problem Problem Increased kcal and prot needs related to Etiology hypermetabolic state, pt report recent weight loss aeb Signs/Symptoms: pneumonia, sepsis vs leukocytosis, malnutrition per progress note Intervention/Recommendation Comments 1. Continue with cardiac diet. PO intake is suboptimal since adm. Continue to encourage PO intake and assist with meals. 2. Recommend Novasource Renal TID. 3. Monitor weight. Expected Outcomes/Goals Expected Outcomes/Goals 1. PO intake to meet 100% of estimated nutritional needs.
[2016-10-13] MEDS ORDERED: Sodium Chloride 0.9% 1,000 ML IV SCH (19:45)
[2016-10-14] MEDS: methylPREDNISolone SS 40 mg Vial IV SCH ×2 (01:00→05:00)
[2016-10-14] MEDS ORDERED: Norepinephrine 4 mg/4mL Vial IV ONE ×2 (01:44→04:46)
--- NOTE | 2016-10-14 02:04 | Progress Notes ---
PULMONARY/CRITICAL CARE PROGRESS NOTE PROBLEM LIST: 1. Acute respiratory failure. 2. Bilateral pneumonia. 3. Status post previous lung resection. 4. Hypotension. SYMPTOMS: The patient is obtunded. No meaningful history from the patient current available, but does seem to be in distress, on 80% of oxygen. PHYSICAL EXAMINATION: VITAL SIGNS: The patient's temperature is 98, heart rate is 110-115, blood pressure 100/67, and saturation is now on 100%, 89, otherwise unremarkable. CHEST: Shows no adventitious breath sounds. HEART: Occasional rhonchi with diminished air entry. Regular. ABDOMEN: Soft and nontender. LABORATORY DATA: White count is 24,000, hemoglobin 9.4, slightly decrease in platelet. ABG shows pO2 of 58 and pCO2 of 62 and pH of 7.3 on 80% on 400 mL tidal volume. Electrolytes shows sodium of 147 and creatinine is 2.2. ASSESSMENT: 1. The patient is clinically not much changed. He has extensive bilateral pneumonia, underlying chronic obstructive pulmonary disease. 2. Status post previous lung resection. 3. Hypotension. PLANS AND SUGGESTIONS: We will discuss with RT. We will drop back FIO2 again and see how it is and go from there. JOB# [id number]
[2016-10-14 05:03] LABS: HEMATOCRIT 28.5 % (39.0-49.0); HEMOGLOBIN 9.7 gm/dL (12.6-17.4); MEAN CELL VOLUME 94.9 fl (80-99); MEAN CORPUSCULAR HEMOGLOBIN 32.2 pg (27.0-31.0); MEAN CORPUSCULAR HGB CONC 33.9 pg (28.0-36.0); MEAN PLATELET VOLUME 9.8 fl; PLATELET COUNT 96 Th/cmm (150-400); RED CELL DISTRIBUTION WIDTH 19.8 % (11.5-20.0)
[2016-10-14 05:18] LABS: WHITE BLOOD COUNT 56.1 Th/cmm (4.8-10.8)
[2016-10-14 05:25] LABS: ALB/GLOB RATIO 1.1 (1.0-1.8); ALKALINE PHOSPHATASE 66 U/L (34-104); ANION GAP 8.4 (7.0-16.0); BILIRUBIN,TOTAL 1.8 mg/dL (0.3-1.0); BUN/CREATININE RATIO 41.5; CARBON DIOXIDE 32.2 mEq/L (21.0-31.0); CHLORIDE 109 mEq/L (98-107); CREATININE - SERUM 2.7 mg/dL (0.7-1.3); GLUCOSE 190 mg/dL (70-105); POTASSIUM SERUM 3.6 mEq/L (3.5-5.1); SODIUM SERUM 146 mEq/L (136-145)
[2016-10-14 05:34] LABS: TROP I 13.46 ng/mL (0.01-0.05)
[2016-10-14 05:37] LABS: BUN - UREA NITROGEN 112 mg/dL (7-25)
[2016-10-14 06:01] LABS: SGOT 2550 U/L (13-39); SGPT/ALT 2600 U/L (7-52)
[2016-10-14] MEDS: Albuterol/Ipratropium Neb 3 ML AERS HHN SCH (07:10)
[2016-10-14 08:11] LABS: pH 7.34 (7.35-7.45)
[2016-10-14 08:12] LABS: HCO3 26.9 mEq/L (20.0-26.0)
[2016-10-14 08:13] LABS: ABG SOURCE Arterial; ALLEN TEST YES; BE(B) 3.2 mEq/L (-3.0-3.0); FIO2 100; MECH RATE 12; MECH VT 400
[2016-10-14 08:35] LABS: ANISOCYTOSIS 1+; BAND NEUTROPHILE 6 % (0-10); NEUTROPHILS 87 % (40-80); PLATELET ESTIMATE DECREASED PLATELETS (NORMAL); PLATELET MORPHOLOGY GIANT PLATELETS SEEN (NORMAL); POLYCHROMASIA 1+; TOTAL CELLS COUNTED 100
[2016-10-14] MEDS ORDERED: Albumin 25% 25gm/100mL 25 GM/100 ML BTL IV ONE ×2 (08:47→08:48)
[2016-10-14] MEDS ORDERED: Albumin 25% 12.5gm/50mL 12.5 GM/50 ML BTL IV ONE (09:00)
[2016-10-14] MEDS ORDERED: metroNIDAZOLE 500mg/NS 100mL 500 MG/100 ML BAG IV SCH (09:00)
--- NOTE | 2016-10-14 09:45 | Diagnostic Imaging Report ---
Portable chest x-ray HISTORY: Pneumonia Compared with prior exam of October 13, 2016, no significant change in bilateral pulmonary infiltrates along with pleural thickening in the right apical region. An endotracheal tube tip is approximately 1.0 cm above the amado. IMPRESSION: 1. No change in pulmonary status 2. Endotracheal tube tip approximately 1.0 cm above the amado.
[2016-10-14] MEDS ORDERED: DOPamine 800 MG/250 ML BAG IV PRN (10:21)
--- NOTE | 2016-10-15 03:15 | Progress Notes ---
PULMONARY/CRITICAL CARE PROGRESS NOTE INTENSIVE CARE UNIT SYMPTOMS: Nil. The patient is doing poorly, is quite tachypneic and also hypotensive and on a next dose of Levophed. PHYSICAL EXAMINATION: VITAL SIGNS: BP is ranging from 100-90-100 and heart rate is in 90-100 and saturation is in 70s on 100%. NECK: Veins not visualized. CHEST: Showed scattered wheezing with diminished air entry. HEART: Regular and tachycardic. ABDOMEN: Soft and nontender. EXTREMITIES: Shows slight trace of peripheral edema. LABORATORY DATA: The patient's today's lab; white count is 56,000, hemoglobin 9.7, and decreased platelet . ABG shows pO2 of 44 on a 100% and electrolytes are okay with creatinine of 2.7. Sodium is 146. Chest x-ray shows slight improvement. LFTs are significantly elevated. IMPRESSION: 1. The patient is doing poorly with multisystem failure. Respiratory pneumonia may be improving. 2. Hypotension. 3. Hepatic failure. 4. Septicemia. PLANS AND SUGGESTIONS: Supportive care. Prognosis is very poor. We will continue rest of other treatment. JOB# [id number]
--- NOTE | 2016-10-23 21:45 | Discharge Summary ---
DATE OF DISCHARGE: 10/14/2016 DISCHARGE SUMMARY/ SUMMARY PRELIMINARY DIAGNOSES: 1. Shortness of breath, rule out pneumonia, rule out congestive heart failure. 2. History of congestive heart failure. 3. Coronary artery disease. 4. Chronic obstructive pulmonary disease. 5. History of myocardial infarction. 6. Elevated troponin levels. 7. Elevated while blood cells. 8. Hypertension. 9. History of partial lung resection. 10. Lung mass noted on the CT. DISCHARGE DIAGNOSES: 1. Acute respiratory failure, on mechanical vent. 2. Acute non-Q-wave myocardial infarction. 3. Congestive heart failure. 4. Coronary artery disease. 5. Chronic obstructive pulmonary disease. 6. Sepsis. 7. Acute renal failure. 8. History of partial lung resection. BRIEF HISTORY OF PRESENT ILLNESS: This is a 71-year-old male who presents to [facility] ER for shortness of breath and difficulty breathing noted at the [facility] facility. A few days prior to admission, the patient presented with cough, congestion, shortness of breath, with green productive sputum along with fever. The patient has previous history of CHF, COPD, and coronary artery disease. Also, he has history of OR. He presented with muscle weakness. He also has peripheral vascular disease. While in the ER, the patient had some initial lab work, which showed white count of 19,000, hemoglobin 10, hematocrit of 30.9, and platelets 253,000. His initial Chem-7, sodium 133, potassium 4.0, chloride 101, bicarbonate 20, BUN 28, and creatinine 1.2. UA showed 100 protein, +1 bacteria. Chest x-ray revealed pleural effusion at the right lower lung base. The patient was admitted, started on IV antibiotics, given a dose in the ER and was admitted for further evaluation and treatment. HOSPITAL COURSE: The patient during his hospital stay had developed elevated troponin levels, which was consistent with acute non-Q-wave OR. The patient was seen and evaluated by Cardiology. The patient was treated with medications, placed on heparin drip. The patient did improve initially with his hospital stay; however, the patient developed worsening of his shortness of breath and was transferred to ICU for a closer observation. During the course of his hospital stay, the patient did develop sepsis, also congestive heart failure, and cardiomyopathy with ejection fraction of 20%. The patient's troponins had increased to a level of 40, was treated medically and with heparin drip and medications were maximized. During this hospital stay, the patient had acute respiratory failure and was on mechanical vent. He was found to have sepsis along with acute renal failure. The patient was seen by Nephrology as well as ID and Pulmonary. Given the extent of his medical condition, this patient subsequently and family members were informed that the patient had . JOB# [id number]
== END 2016-10-14 11:47 | disposition expired | DRG 871 ==
LOC: ER 12:13 → TELE 14:10 → ICU 10-03 19:22
PROVIDERS: ADMIT Family Medicine; ATTEND Family Medicine
PROC: 5A09457 Assistance with Respiratory Ventilation, 24-96 Consecutive Hours, Continuous Positive Airway Pressure (ICD-10-PCS; principal; 2016-10-03)
PROC: 5A1945Z Respiratory Ventilation, 24-96 Consecutive Hours (ICD-10-PCS; 2016-10-11)
PROC: 0BH17EZ Insertion of Endotracheal Airway into Trachea, Via Natural or Artificial Opening (ICD-10-PCS; 2016-10-11)
PROC: 02H633Z Insertion of Infusion Device into Right Atrium, Percutaneous Approach (ICD-10-PCS; 2016-10-11)
PROC: 30233N1 Transfusion of Nonautologous Red Blood Cells into Peripheral Vein, Percutaneous Approach (ICD-10-PCS; 2016-10-12)
PROC: 5A12012 Performance of Cardiac Output, Single, Manual (ICD-10-PCS; 2016-10-14)
DX: A41.9 Sepsis, unspecified organism (principal); J18.9 Pneumonia, unspecified organism; I21.4 Non-ST elevation (NSTEMI) myocardial infarction; J96.00 Acute respiratory failure, unspecified whether with hypoxia or hypercapnia; E43 Unspecified severe protein-calorie malnutrition; I50.21 Acute systolic (congestive) heart failure; D68.9 Coagulation defect, unspecified; N17.9 Acute kidney failure, unspecified; I42.9 Cardiomyopathy, unspecified; Z99.11 Dependence on respirator [ventilator] status; J44.1 Chronic obstructive pulmonary disease with (acute) exacerbation; L03.115 Cellulitis of right lower limb; I13.0 Hypertensive heart and chronic kidney disease with heart failure and stage 1 through stage 4 chronic kidney disease, or unspecified chronic kidney disease; J44.0 Chronic obstructive pulmonary disease with (acute) lower respiratory infection; B19.9 Unspecified viral hepatitis without hepatic coma; I27.2 Other secondary pulmonary hypertension; G47.33 Obstructive sleep apnea (adult) (pediatric); E78.5 Hyperlipidemia, unspecified; I25.10 Atherosclerotic heart disease of native coronary artery without angina pectoris; I25.2 Old myocardial infarction; R91.8 Other nonspecific abnormal finding of lung field; E11.51 Type 2 diabetes mellitus with diabetic peripheral angiopathy without gangrene; E11.22 Type 2 diabetes mellitus with diabetic chronic kidney disease; K72.90 Hepatic failure, unspecified without coma; N18.2 Chronic kidney disease, stage 2 (mild); D64.9 Anemia, unspecified; D69.6 Thrombocytopenia, unspecified; Z87.891 Personal history of nicotine dependence; Z88.8 Allergy status to other drugs, medicaments and biological substances; Z88.2 Allergy status to sulfonamides; Z68.24 Body mass index [BMI] 24.0-24.9, adult; Z85.038 Personal history of other malignant neoplasm of large intestine; Z90.2 Acquired absence of lung [part of]
CPT/HCPCS: 36415-UA; 36600-90; 71010-TC; 71250-TC; 74000-TC; 80048-TC; 80053-TC; 80061-TC; 80074-90; 80202-TC; 81001-TC; 81015-TC; 82043-90; 82140-TC; 82570-TC; 82728-90; 82803-TC; 83036-90; 83540-90; 83550-90; 83605; 83735-TC; 83880-TC; 84100-TC; 84156-TC; 84300-TC; 84439-90; 84443-TC; 84479-90; 84484-TC; 84550-TC; 85007-TC; 85025-TC; 85027-TC; 85384-TC; 85610-TC; 85730-TC; 86480-90; 86635-90; 86698-90; 86703-TC; 86850-TC; 86900-TC; 86901-TC; 86922-TC; 87070; 87086-90; 87102-90; 87116-90; 87206-90; 87395-90; 87556-90; 90779; 90799; 92950; 93005; 94002; 94003; 94640; 94660; 94760; C1751; J0171; J0330; J0456; J0696; J1265; J1644; J1940; J1956; J2020; J2060; J2250; J2370; J2543; J2920; J2930; J3370; J7030; J7040; J7042; J7613; P9016; P9046; X6452; X7704; Z7610